=== PATIENT | female | born 1960 | race Caucasian/White ===

== ENCOUNTER 2018-05-22 13:20 | Inpatient (IN) | payer OTHER ==
[2018-05-22] MEDS ORDERED: Sodium Chloride 0.9% 1,000 ML IV SCH (14:00)
[2018-05-22 14:08] LABS: BASO # 0.1 K/uL (0.0-0.2); BASO % 1.2 % (0.0-2.0); EOS # 0.1 K/uL (0.0-0.7); EOS % 1.3 % (0.0-4.0); HEMOGLOBIN 14.3 g/dL (11.0-16.0); LYMPH # 0.7 K/uL (1.0-4.3); LYMPH % 6.6 % (20.0-40.0); MEAN CORPUSCULAR HEMOGLOBIN 26.5 pg (27.0-31.0); MEAN CORPUSCULAR HGB CONC 32.7 g/dL (33.0-37.0); MEAN PLATELET VOLUME 7.7 fL (7.2-11.7); MONO # 0.3 K/uL (0.0-0.8); MONO % 2.8 % (0.0-10.0); NEUT # 9.5 K/uL (1.8-7.0); NEUT % 88.1 % (50.0-75.0); NRBC % 0.1 % (0.0-2.0); PLATELET COUNT 277 K/uL (130-400); RED CELL DISTRIBUTION WIDTH 14.4 % (11.5-14.5); WHITE BLOOD COUNT 10.8 K/uL (4.8-10.8)
[2018-05-22] MEDS ORDERED: Iodixanol 320 MG/ML 100 ML BOTTLE IV ONE (14:10)
[2018-05-22 14:16] LABS: PROTHROMBIN TIME 10.9 SECONDS (9.7-12.2)
[2018-05-22 14:21] LABS: ALB/GLOB RATIO 1.5 (1.0-2.1); ALBUMIN 4.7 g/dL (3.5-5.0); ALT/SGPT 20 U/L (9-52); AST/SGOT 32 U/L (14-36); BLOOD UREA NITROGEN 20 mg/dL (7-17); CALCIUM 9.3 mg/dl (8.6-10.4); GFR NON-AFRICAN AMERICAN > 60; HDL CHOLESTEROL 67 mg/dL (30-70)
--- NOTE | 2018-05-22 14:22 | CT ---
Date of service: 05/22/2018 PROCEDURE: CT HEAD WITHOUT CONTRAST. HISTORY: Code Stroke COMPARISON: None available. TECHNIQUE: Axial computed tomography images were obtained through the head/brain without intravenous contrast. Radiation dose: Total exam DLP = 983.62 mGy-cm. This CT exam was performed using one or more of the following dose reduction techniques: Automated exposure control, adjustment of the mA and/or kV according to patient size, and/or use of iterative reconstruction technique. FINDINGS: HEMORRHAGE: No intracranial hemorrhage. BRAIN: Bilateral caudate head chronic lacune infarcts are reiterated, however, no cortical edema is appreciated there is no mass effect. Ventricular sulcal sternal spaces are unremarkable there is no suspicious extra-axial collection identified. Midline brain anatomy appears unremarkable. VENTRICLES: Unremarkable. No hydrocephalus. CALVARIUM: Unremarkable. PARANASAL SINUSES: Unremarkable as visualized. No significant inflammatory changes. MASTOID AIR CELLS: Unremarkable as visualized. No inflammatory changes. OTHER FINDINGS: None. IMPRESSION: Bilateral caudate head chronic lacune's identified. Examination otherwise unremarkable. Discussed with Dr. Krause with written down and read back verification 05/22/2018 2:10 p.m..
[2018-05-22 14:27] VITALS: BMI 21.4
[2018-05-22 14:32] LABS: LDL CHOLESTEROL 102 mg/dL (0-129)
--- NOTE | 2018-05-22 14:42 | CT ---
Date of service: 05/22/2018 PROCEDURE: CT Angiography of the Brain and Neck. HISTORY: cva COMPARISON: None available. TECHNIQUE: CT angiography of the head and neck was performed following intravenous contrast administration. Coronal and sagittal maximum intensity projection reformatted images were generated. Contrast Dose: Visipaque 320, 100 cc Radiation dose: Total exam DLP = 1014.46 mGy-cm. This CT exam was performed using one or more of the following dose reduction techniques: Automated exposure control, adjustment of the mA and/or kV according to patient size, and/or use of iterative reconstruction technique. FINDINGS: INTERNAL CEREBRAL ARTERIES: Note is made of partially calcified atherosclerosis of the bilateral cavernous internal carotid artery segments without significant stenosis. The skull base, petrous, and supraclinoid segments are bilaterally widely patent. ANTERIOR CEREBRAL ARTERIES: Unremarkable. A1 and A2 segments are widely patent. Smaller distal branches unremarkable, as visualized. MIDDLE CEREBRAL ARTERIES: Unremarkable. M1 and M2 segments are widely patent. Perisylvian branches grossly symmetric. POSTERIOR CIRCULATION: Basilar Artery: Unremarkable. Distal Vertebral Arteries: Right dominant distal vertebral arteries identified. Hypoplastic distal left vertebral artery identified. Posterior Cerebral Arteries: Unremarkable. Posterior Inferior Cerebellar Arteries: Unremarkable. NECK CTA: Common Carotid arteries: There is mild stenosis of the proximal left common carotid artery at its origin with remainder widely patent. There is a high-grade stenosis of the right common carotid artery few cm distal to its origin.. No evidence to suggest common carotid artery dissection. Internal Carotid arteries: No significant stenosis is appreciated throughout the cervical internal carotid artery segments bilaterally and there is no evidence of dissection either. External Carotid arteries: Appear unremarkable bilaterally. Vertebral arteries: The bilateral vertebral arteries appear normal in caliber from their origins to their distal cervical segments. No significant stenosis or definite pattern of dissection. ANEURYSM/ VASCULAR MALFORMATIONS: None. OTHER FINDINGS: Incidental high-grade stenosis origin left subclavian artery. IMPRESSION: No definite large vessel occlusion in the brain. Limited bilateral cavernous ICA atherosclerotic change without significant stenosis. High-grade stenosis proximal right common carotid artery with right CCA otherwise widely patent. Widely patent left CCA throughout. Incidental high-grade stenosis at the origin of the left subclavian artery.
--- NOTE | 2018-05-22 14:43 | RAD ---
Date of service: 05/22/2018 HISTORY: Code Stroke COMPARISON: No prior. FINDINGS: LUNGS: No active pulmonary disease. PLEURA: No significant pleural effusion identified, no pneumothorax apparent. CARDIOVASCULAR: No aortic atherosclerotic calcification present. Cardiomegaly likely. No pulmonary vascular congestion identified. No pulmonary vascular congestion. OSSEOUS STRUCTURES: No significant abnormalities. VISUALIZED UPPER ABDOMEN: Normal. OTHER FINDINGS: None. IMPRESSION: Cardiomegaly. No pulmonary vascular congestion, infiltrate or pleural effusion identified.
[2018-05-22 15:03] LABS: BANDS 2 % (0-2); EOSINOPHIL 2 % (0-4); LYMPHOCYTE 6 % (20-40); MONOCYTE 5 % (0-10); NEUTROPHIL 84 % (50-75); PLATELET ESTIMATE NORMAL (NORMAL); REACTIVE LYMPHOCYTES 1 % (0-0); TOTAL CELLS COUNTED 100
--- NOTE | 2018-05-22 15:05 | C.PDOC ---
History Of Present Illness 57 year old female with a PMHx of hypertension presents to the ED for evaluation of right arm and right leg weakness and numbness that began 1 hour prior to arrival. The patient admits she is not currently on blood thinners. Denies fever, chills, and any other associated symptoms. Time Seen by Provider: 05/22/18 13:55 Chief Complaint (Nursing): Weakness/Neurological Deficit History Per: Patient History/Exam Limitations: no limitations Onset/Duration Of Symptoms: Hrs (1hs prior to arrival.) Current Symptoms Are (Timing): Still Present Past Medical History Reviewed: Historical Data, Nursing Documentation, Vital Signs Vital Signs: Last Vital Signs Temp 98 F 05/22/18 14:57 Pulse 83 05/22/18 14:57 Resp 18 05/22/18 14:57 BP 165/66 H 05/22/18 14:57 Pulse Ox 98 05/22/18 14:57 - Medical History PMH: HTN Family History: States: Unknown Family Hx - Social History Hx Alcohol Use: No Hx Substance Use: No - Immunization History Hx Tetanus Toxoid Vaccination: No Hx Influenza Vaccination: No Hx Pneumococcal Vaccination: No Review Of Systems Except As Marked, All Systems Reviewed And Found Negative. Constitutional: Negative for: Fever, Chills Neurological: Positive for: Weakness ( (+) right arm and right leg weakness and numbness.) Physical Exam - Physical Exam Appears: Non-toxic, No Acute Distress Skin: Warm, Dry Head: Atraumatic, Normacephalic Eye(s): bilateral: Normal Inspection Oral Mucosa: Moist Neck: Normal ROM Chest: Symmetrical Cardiovascular: Rhythm Regular, No Murmur Respiratory: Normal Breath Sounds, No Rales, No Rhonchi, No Wheezing Gastrointestinal/Abdominal: Normal Exam, Soft, No Tenderness Extremity: Bilateral: Atraumatic Neurological/Psych: Oriented x3, Normal Speech, Normal Cognition, Other (right arm and right leg 3/5 weakness. 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 mild sensation deficit.) ED Course And Treatment - Laboratory Results Result Diagrams: 05/23/18 02:38 05/23/18 02:38 Lab Results: PT 10.9 SECONDS (9.7-12.2) 05/22/18 14:03 INR 1.0 05/22/18 14:03 APTT 37 SECONDS (21-34) H 05/22/18 14:03 Troponin I < 0.0120 ng/mL (0.00-0.120) 05/22/18 14:03 Total Bilirubin 0.5 mg/dL (0.2-1.3) 05/22/18 14:03 AST 32 U/L (14-36) 05/22/18 14:03 ALT 20 U/L (9-52) 05/22/18 14:03 Alkaline Phosphatase 101 U/L (38-126) 05/22/18 14:03 Total Protein 7.9 g/dL (6.3-8.3) 05/22/18 14:03 Albumin 4.7 g/dL (3.5-5.0) 05/22/18 14:03 Globulin 3.1 gm/dL (2.2-3.9) 05/22/18 14:03 Albumin/Globulin Ratio 1.5 (1.0-2.1) 05/22/18 14:03 ECG: Interpreted By Me, Viewed By Me ECG Rhythm: Sinus Rhythm Interpretation Of ECG: LVH. Q waves. Rate From EC O2 Sat by Pulse Oximetry: 98 (RA) Pulse Ox Interpretation: Normal - Other Rad CXR X-Ray: Viewed By Me, Read By Radiologist Interpretation: FINDINGS: LUNGS: No active pulmonary disease. PLEURA: No significant pleural effusion identified, no pneumothorax apparent. CARDIOVASCULAR: No aortic atherosclerotic calcification present. Cardiomegaly likely. No pulmonary vascular congestion identified. No pulmonary vascular congestion. OSSEOUS STRUCTURES: No significant abnormalities. VISUALIZED UPPER ABDOMEN: Normal. OTHER FINDINGS: None. IMPRESSION: Cardiomegaly. No pulmonary vascular congestion, infiltrate or pleural effusion identified. - CT Scan/US CT Head Other Rad Studies (CT/US): Read By Radiologist CT/US Interpretation: FINDINGS: HEMORRHAGE: No intracranial hemorrhage. BRAIN: Bilateral caudate head chronic lacune infarcts are reiterated, however, no cortical edema is appreciated there is no mass effect. Ventricular sulcal sternal spaces are unremarkable there is no suspicious extra-axial collection identified. Midline brain anatomy appears unremarkable. VENTRICLES: Unremarkable. No hydrocephalus. CALVARIUM: Unremarkable. PARANASAL SINUSES: Unremarkable as visualized. No significant inflammatory changes. MASTOID AIR CELLS: Unremarkable as visualized. No inflammatory changes. OTHER FINDINGS: None. IMPRESSION: Bilateral caudate head chronic lacune's identified. Examination otherwise unremarkable. Discussed with Dr. Krause with written down and read back verification 05/22/2018 2:10 p.m.. CTA Head/Neck Other Rad Studies (CT/US): Read By Radiologist CT/US Interpretation: FINDINGS: INTERNAL CEREBRAL ARTERIES: Note is made of partially calcified atherosclerosis of the bilateral cavernous internal carotid artery segments without significant stenosis. The skull base, petrous, and supraclinoid segments are bilaterally widely patent. ANTERIOR CEREBRAL ARTERIES: Unremarkable. A1 and A2 segments are widely patent. Smaller distal branches unremarkable, as visualized. MIDDLE CEREBRAL ARTERIES: Unremarkable. M1 and M2 segments are widely patent. Perisylvian branches grossly symmetric. POSTERIOR CIRCULATION: Basilar Artery: Unremarkable. Distal Vertebral Arteries: Right dominant distal vertebral arteries identified. Hypoplastic distal left vertebral artery identified. Posterior Cerebral Arteries: Unremar kable. Posterior Inferior Cerebellar Arteries: Unremarkable. NECK CTA: Common Carotid arteries: There is mild stenosis of the proximal left common carotid artery at its origin with remainder widely patent. There is a high-grade stenosis of the right common carotid artery few cm distal to its origin.. No evidence to suggest common carotid artery dissection. Internal Carotid arteries: No significant stenosis is appreciated throughout the cervical internal carotid artery segments bilaterally and there is no evidence of dissection either. External Carotid arteries: Appear unremarkable bilaterally. Vertebral arteries: The bilateral vertebral arteries appear normal in caliber from their origins to their distal cervical segments. No significant stenosis or definite pattern of dissection. ANEURYSM/ VASCULAR MALFORMATIONS: None. OTHER FINDINGS: Incidental high-grade stenosis origin left subclavian artery. IMPRESSION: No definite large vessel occlusion in the brain. Limited bilateral cavernous ICA atherosclerotic change without significant stenosis. High-grade stenosis proximal right common carotid artery with right CCA otherwise widely patent. Widely patent left CCA throughout. Incidental high-grade stenosis at the origin of the left subclavian artery. Critical Care Time - Critical Care Note Total Time (in mins): 45 Documented critical care: time excludes all time spent performing seperately billable procedures. NIHSS Stroke Scale 2 - Date/Time Evaluation Performed Time Performed: 13:50 When Was NIHSS Performed: Baseline - How Severe is the Stroke Level of Consciousness: 0=Alert LOC to Questions: 0=Both comments correct LOC to commands: 0=Obeys both correctly Best Gaze: 0=Normal Visual: 0=No visual loss Facial: 0=Normal Motor Arm - Left: 0=No drift Motor Arm - Right: 1=Drift noted before 10 sec Motor Leg - Left: 0=No drift Motor Leg - Right: 1=Drift before 5 sec Limb Ataxia: 0=Absent Sensory: 1=Mild to moderate loss Best Language: 0=No aphasia Dysarthia: 0=Normal articulation Extinction & Inattention (Neglect): 0=Normal, no object Score: 3 Medical Decision Making Medical Decision Making: Initial plan: -Blood sent. -EKG -CXR -Activase -CT Head w/o contrast. -CTA Head/Neck. Progress/Update: 2:00 pm : Discussed case with neurologist Dr. Up. Waiting for CT report 2:06 pm: CT report read Spoke with Dr. Up regarding CT, she recommended TPA. Discussed TPA with family and they consented to sign. 2:30 pm : TPA administered Discussed CT of the brain with Dr Up, she was made aware of findings and recommended admission to ICU. She also recommended carotid ultrasound. Discussed with secretarial stenographer, accepted the patient and recommended vascular consult Discussed with hospitalist Dr. Roberto Giang accepted patient for admission who will arrange vascular consult. Disposition - Disposition Disposition: HOSPITALIZED Disposition Time: 15:00 Condition: STABLE - POA Present On Arrival: None - Clinical Impression Clinical Impression: CVA (cerebral vascular accident) - Scribe Statement The provider has reviewed the documentation as recorded by the Scribe (Louise Aguilar) Provider Attestation: All medical record entries made by the Scribe were at my direction and personally dictated by me. I have reviewed the chart and agree that the record accurately reflects my personal performance of the history, physical exam, medical decision making, and the department course for this patient. I have also personally directed, reviewed, and agree with the discharge instructions and disposition.
--- NOTE | 2018-05-22 16:28 | CP.PCM.HP ---
<Daja Espinal - Last Filed: 05/22/18 20:35> History of Present Illness - History of Present Illness History of Present Illness: PGY1 Medicine History and Physical Exam Note for Dr. Mills Patient is a 57-year-old F who is here visiting her family from [place] (arrived 3 months ago) who also has a past medical history of HTN and RA presents to the ED with slurred speech, right upper extremity numbness/weakness and right lower extremity numbness/weakness. Patient's daughter assisted with translation with the permission of the Patient. Patient notes her symptoms began at 12:30PM when her granddaughter could not get her to answer to her questions. Patient noted she began "feeling funny" and described numbness/tingling in her R upper and R lower extremities. While in the ED, Patient received dose of TPA at 14:30. Per Patient, her symptoms improved at 15:30, once re-evaluated. Patient otherwise denies chest pain, palpitations, blurred vision, shortness of breath, abdominal pain, fever, chills, nausea, and/or vomiting, headache, and/or dizziness. PMH: RA, HTN Meds: Clinidipine/Metoprolol (Cilamet XL) 10/50, Prednisolone 5mg, hydroxychloroquine (dose unknown) Surgery: Hysterectomy 2 years ago Social: Denies tobacco use, but Patient states she is exposed to second-hand smoking from Denies ETOH Denies drugs Lives in [place] with and is visiting for the last 3 months PMD: recently has seen her PMD prior to arriving in the [place] and states no new medical problems other than existing HTN Present on Admission - Present on Admission Any Indicators Present on Admission: No History of DVT/PE: No History of Uncontrolled Diabetes: No Urinary Catheter: No Decubitus Ulcer Present: No Review of Systems - Constitutional Constitutional: absent: Chills, Daytime Sleepiness, Frequent Falls, Headache - EENT Eyes: absent: Blind Spots, Blurred Vision, Floaters, Irritation Ears: absent: Decreased Hearing - Cardiovascular Cardiovascular: absent: Chest Pain, Diaphoresis, Dyspnea, Edema, Palpitations - Respiratory Respiratory: absent: Cough, Dyspnea - Gastrointestinal Gastrointestinal: absent: Abdominal Pain, Constipation, Diarrhea - Genitourinary Genitourinary: absent: Hematuria, Urinary Frequency - Musculoskeletal Musculoskeletal: Arthralgias - Integumentary Integumentary: absent: Lesions - Neurological Additional comments: weakness/numbness in right upper and right lower extremities Past Patient History - Past Social History Smoking Status: Never Smoked - CARDIAC Hx Hypertension: Yes - PSYCHIATRIC Hx Substance Use: No - SURGICAL HISTORY Other/Comment: unable to recall Meds Allergies/Adverse Reactions: Allergies Allergy/AdvReac Type Severity Reaction Status Date / Time No Known Allergies Allergy Verified 05/22/18 14:13 Physical Exam - Constitutional Appears: Non-toxic, No Acute Distress - Head Exam Head Exam: ATRAUMATIC, NORMAL INSPECTION, NORMOCEPHALIC - Eye Exam Eye Exam: EOMI, Normal appearance, PERRL Pupil Exam: NORMAL ACCOMODATION Additional comments: cataracts present bilaterally - Neck Exam Neck exam: Positive for: Full Rom, Normal Inspection. Negative for: Lymphadenopathy - Respiratory Exam Respiratory Exam: Clear to Auscultation Bilateral, NORMAL BREATHING PATTERN. absent: Accessory Muscle Use - Cardiovascular Exam Cardiovascular Exam: REGULAR RHYTHM, +S1, +S2. absent: Diastolic murmur, Systolic Murmur - GI/Abdominal Exam GI & Abdominal Exam: Normal Bowel Sounds, Soft. absent: Distended, Guarding, Tenderness - Extremities Exam Extremities exam: Positive for: normal inspection - Back Exam Back exam: NORMAL INSPECTION - Neurological Exam Neurological exam: Alert, CN II-XII Intact, Oriented x3, Reflexes Normal Additional comments: Positive right lower extremity drift Positive right upper extremity drift Muscle strength 3/5 in right upper extremity and right lower extremity gross sensation decreased in right upper extremity otherwise CN II - XII are in tact Results - Vital Signs Recent Vital Signs: Last Vital Signs Temp 97.5 F L 05/22/18 16:00 Pulse 78 05/22/18 16:00 Resp 19 05/22/18 16:00 BP 166/86 H 05/22/18 16:00 Pulse Ox 97 05/22/18 16:00 - Labs Result Diagrams: 05/22/18 14:03 05/22/18 14:03 Labs: Laboratory Results - last 24 hr 05/22/18 05/22/18 05/22/18 14:03 14:03 14:03 WBC 10.8 RBC 5.40 H Hgb 14.3 Hct 43.8 MCV 81.0 MCH 26.5 L MCHC 32.7 L RDW 14.4 Plt Count 277 MPV 7.7 Neut % (Auto) 88.1 H Lymph % (Auto) 6.6 L Kingman % (Auto) 2.8 Eos % (Auto) 1.3 Baso % (Auto) 1.2 Neut # (Auto) 9.5 H Lymph # (Auto) 0.7 L Kingman # (Auto) 0.3 Eos # (Auto) 0.1 Baso # (Auto) 0.1 Neutrophils % (Manual) 84 H Band Neutrophils % 2 Lymphocytes % (Manual) 6 L Reactive Lymphs % 1 H Monocytes % (Manual) 5 Eosinophils % (Manual) 2 Platelet Estimate Normal RBC Morphology Normal PT 10.9 INR 1.0 APTT 37 H Sodium 143 Potassium 4.0 Chloride 102 Carbon Dioxide 32 H Anion Gap 12 BUN 20 H Creatinine 0.8 Est GFR ( Amer) > 60 Est GFR (Non-Af Amer) > 60 Random Glucose 109 H Calcium 9.3 Total Bilirubin 0.5 AST 32 ALT 20 Alkaline Phosphatase 101 Troponin I < 0.0120 Total Protein 7.9 Albumin 4.7 Globulin 3.1 Albumin/Globulin Ratio 1.5 Triglycerides 107 Cholesterol 199 LDL Cholesterol Direct 102 HDL Cholesterol 67 Blood Type Antibody Screen 05/22/18 14:03 WBC RBC Hgb Hct MCV MCH MCHC RDW Plt Count MPV Neut % (Auto) Lymph % (Auto) Kingman % (Auto) Eos % (Auto) Baso % (Auto) Neut # (Auto) Lymph # (Auto) Kingman # (Auto) Eos # (Auto) Baso # (Auto) Neutrophils % (Manual) Band Neutrophils % Lymphocytes % (Manual) Reactive Lymphs % Monocytes % (Manual) Eosinophils % (Manual) Platelet Estimate RBC Morphology PT INR APTT Sodium Potassium Chloride Carbon Dioxide Anion Gap BUN Creatinine Est GFR ( Amer) Est GFR (Non-Af Amer) Random Glucose Calcium Total Bilirubin AST ALT Alkaline Phosphatase Troponin I Total Protein Albumin Globulin Albumin/Globulin Ratio Triglycerides Cholesterol LDL Cholesterol Direct HDL Cholesterol Blood Type O POSITIVE Antibody Screen Negative Assessment & Plan - Assessment and Plan (Free Text) Assessment: PGY1 Medicine History and Physical Exam Note for Dr. Mills Patient is a 57-year-old F who is here visiting her family from [place] (arrived 3 months ago) who also has a past medical history of HTN and RA presents to the ED with slurred speech, right upper extremity numbness/weakness and right lower extremity numbness/weakness. Ischemic Stroke - NIHSS score of 1 (re-evaluation) - CT head: negative for intracranial bleed - CTA: right proximal stenosis of common carotid artery (see official report) - F/U Brain MRI (non-contrast) - F/U carotid doppler study - tPA - F/U ECHO with bubble study - F/U Brain MRI without contrast - F/U Carotid duplex - Lipid panel unremarkable - CRP=12.46 - F/U HgbA1c - F/U: Vitamine B12, T4, Total T3, TSH - HOLD aspirin for 24 hours post TPA administration * should start 05/23/18 at 14:30PM - Permissive HTN systolic > 185 x24 hours from onset of stroke symptoms - Neuro-checks per protocol - Risk factor: HTN - Oxygen 2L NC PRN - PT/OT/ Speech eval and treat Flipped T-Waves Rule-Out ACS - F/U SHAILESH and EKG Q6Hrs x3 (negative x1) - F/U EKG repeat - Cardiology consulted (Dr. Bhandari); rec appreciated - Hold ASA given TPA administration (see above) - F/U ECHO with bubble study - Hold antihypertensive medications to allow for permissive HTN x24 hours Right Proximal Common Carotid Stenosis - Vascular surgery consult (Dr. Regalado); rec appreciated - CTA: shows right proximal carotid stenosis and right subclavian stenosis. symptoms do not correlate with right CCA stenosis - F/U carotid doppler results Rheumatoid Arthritis - F/U ESR, CPP, ALIA with reflex, Anti-CCP - HOLD home meds / NSAIDS PPx: - GI: pepcid - DVT: SCD, VTE contraindicated due to tPA administration - Swallow eval: Patient passed, on Healthy Heart Diet Patient seen and case discussed in detail with Dr. Gene Espinal PGY1 NIHSS Stroke Scale - Date/Time Evaluation Performed Date Performed: 05/22/18 Time Performed: 13:30 When Was NIHSS Performed: Post tPA - How Severe is the Stoke Level of Consciousness: 0=Alert LOC to Questions: 0=Both comments correct LOC to commands: 0=Obeys both correctly Best Gaze: 0=Normal Visual: 0=No visual loss Facial: 0=Normal Motor Arm - Left: 1=Drift noted before 10 sec Motor Arm - Right: 0=No drift Motor Leg - Left: 1=Drift before 5 sec Motor Leg - Right: 0=No drift Limb Ataxia: 0=Absent Sensory: 1=Mild to moderate loss Best Language: 0=No aphasia Dysarthia: 0=Normal articulation Extinction & Inattention (Neglect): 0=Normal, no object Score: 3 <Indira Mills V - Last Filed: 05/23/18 08:16> Results - Vital Signs Recent Vital Signs: Last Vital Signs Temp 97.5 F L 05/22/18 16:00 Pulse 78 05/22/18 16:00 Resp 19 05/22/18 16:00 BP 166/86 H 05/22/18 16:00 Pulse Ox 97 05/22/18 16:00 - Labs Result Diagrams: 05/23/18 02:38 05/23/18 02:38 Labs: Laboratory Results - last 24 hr 05/22/18 05/22/18 05/22/18 14:03 14:03 14:03 WBC 10.8 RBC 5.40 H Hgb 14.3 Hct 43.8 MCV 81.0 MCH 26.5 L MCHC 32.7 L RDW 14.4 Plt Count 277 MPV 7.7 Neut % (Auto) 88.1 H Lymph % (Auto) 6.6 L Kingman % (Auto) 2.8 Eos % (Auto) 1.3 Baso % (Auto) 1.2 Neut # (Auto) 9.5 H Lymph # (Auto) 0.7 L Kingman # (Auto) 0.3 Eos # (Auto) 0.1 Baso # (Auto) 0.1 Neutrophils % (Manual) 84 H Band Neutrophils % 2 Lymphocytes % (Manual) 6 L Reactive Lymphs % 1 H Monocytes % (Manual) 5 Eosinophils % (Manual) 2 Platelet Estimate Normal RBC Morphology Normal PT 10.9 INR 1.0 APTT 37 H Sodium 143 Potassium 4.0 Chloride 102 Carbon Dioxide 32 H Anion Gap 12 BUN 20 H Creatinine 0.8 Est GFR ( Amer) > 60 Est GFR (Non-Af Amer) > 60 POC Glucose (mg/dL) Random Glucose 109 H Calcium 9.3 Total Bilirubin 0.5 AST 32 ALT 20 Alkaline Phosphatase 101 Troponin I < 0.0120 Total Protein 7.9 Albumin 4.7 Globulin 3.1 Albumin/Globulin Ratio 1.5 Triglycerides 107 Cholesterol 199 LDL Cholesterol Direct 102 HDL Cholesterol 67 Blood Type Antibody Screen 05/22/18 05/22/18 14:03 16:35 WBC RBC Hgb Hct MCV MCH MCHC RDW Plt Count MPV Neut % (Auto) Lymph % (Auto) Kingman % (Auto) Eos % (Auto) Baso % (Auto) Neut # (Auto) Lymph # (Auto) Kingman # (Auto) Eos # (Auto) Baso # (Auto) Neutrophils % (Manual) Band Neutrophils % Lymphocytes % (Manual) Reactive Lymphs % Monocytes % (Manual) Eosinophils % (Manual) Platelet Estimate RBC Morphology PT INR APTT Sodium Potassium Chloride Carbon Dioxide Anion Gap BUN Creatinine Est GFR ( Amer) Est GFR (Non-Af Amer) POC Glucose (mg/dL) 119 H Random Glucose Calcium Total Bilirubin AST ALT Alkaline Phosphatase Troponin I Total Protein Albumin Globulin Albumin/Globulin Ratio Triglycerides Cholesterol LDL Cholesterol Direct HDL Cholesterol Blood Type O POSITIVE Antibody Screen Negative Attending/Attestation - Attestation I have personally seen and examined this patient.: Yes I have fully participated in the care of the patient.: Yes I have reviewed all pertinent clinical information: Yes Notes (Text): 57 year-old female past medical history of hypertension, arthritis comes in from home for right-sided hand weakness And overall not feeling well. Patient normally is ambulating individual. Patient noted that while she is back to shower feeling unwell herself to the bed the granddaughter noted that she was not feeling well and brought her daughter over noted hand and weakness of right hand. Last seen normally about 1230. Patient given TPA first dose by 2:30 PM. NIH prior to TPA was 220 discussed with nursing staff. Patient seen post TPA approximately 3:50 PM. Patient right upper extremity is moving very well compared to what was endorsed by nursing staff which is right hand was not moving. Patient denies any headache, denies chest pain denies palpitations denies shortness of breath and per daughter at bedside no change in speech no change in voice tone no slurring no facial droop. Her daughter patient took her medications this morning unclear which ones. Patient is visiting from [place] about 3 months ago. Last saw her PMD [place]15 days prior. Per bedside health is relatively good except for blood pressure. Patient had prior neuro workup for arthritis in the left hand which is resolved while being on the prednisone and hydroxychloroquine. 1 1. Ischemic stroke No informed by ED. Patient received TPA approximately 2:30 PM. Neurochecks per code stroke protocol for TPA protocol. Patient admitted to the intensive care unit Neurology on board. Will need to hold aspirin for at least 24hours since initiation of TPA earliest would be approximately May 3. Will need to follow-up blood pressure guidelines status post TPA Pending A1c Lipid panel completed in the emergency room CT head noted for bilateral quality health had chronic lacunae identified. Examination otherwise unremarkable. CAT scan for performed prior to TPA. CT head/neck neck: No large vessel occlusion in the brain. Limited bilateral cavernous ICA atherosclerotic changes without significant stenosis. High-grade stenosis proximal right common carotid artery with right CC otherwise widely patent. Widely patent left CC throughout. Incidental high-grade stenosis of the origin of the left subclavian artery. 2. History of hypertension Hold patient's blood pressure medications Abide by blood pressure protocol status post TPA for at least 24 hours per neuro 3. Abnormal EKG Patient has flipped T waves on initial EKG ischemia likely secondary to stroke cardiac risk including hypertension. Patient does not report any cardiac pain no shortness of breath no associated palpitations prior to event this morning. We will repeat an EKG today. Check echo. Consult cardio. Please note we cannot give aspirin since been given TPA today and will need to wait at least 24 hours. 4. History of arthritis likely rheumatoid Patient is outpatient takes prednisone and hydroxychloroquine. We will hold. Check ESR CRP ALIA with reflex anti-CCP. Patient no noted visual defects that would be attributed to hydroxychloroquine and no visual defects secondary to stroke. 5. Cartoid Stenosis Noted on CT head and neck Carotid Stenosis Vascular surgery eval Discussed with neurology likely anatomic variant per review 6. Prophylactic measure Pepcid 20 mg IV every 12 for GI prophylaxis TPA per neuro guideline Neurocheck per protocol s/p tpa SCDs PT OT eval Swallow eval
--- NOTE | 2018-05-22 17:27 | CP.PCM.CON ---
History of Present Illness - History of Present Illness History of Present Illness: Neurology Consultation Note: Consult was requested by Dr. Mills Mrs. Celeste is a 57-year-old woman with a past medical history of hypertension, rheumatoid arthritis who was taking a shower and started to have right hand numbness/weakness. She told her daughter and she was brought to the ED, where she also developed right leg numbness/weakness. Her NIHSS was 4. Non-contrast CT scan of the head did not show any acute findings. Her symptoms had started about an hour earlier. She was given IV tPA and shortly after, her symptoms were improving. Review of Systems - Constitutional Constitutional: As Per HPI - EENT Eyes: absent: As Per HPI, Blind Spots, Blurred Vision, Change in Vision, Decreased Night Vision, Diplopia, Discharge, Dry Eye, Exophthalmos, Floaters, Irritation, Itchy Eyes, Loss of Peripheral Vision, Pain, Photophobia, Requires Corrective Lenses, Sees Flashes, Spots in Vision, Tunnel Vision, Other Visual Disturbances, Loss of Vision, Other Ears: absent: As Per HPI, Decreased Hearing, Ear Discharge, Ear Pain, Tinnitus, Abnormal Hearing, Disequilibrium, Dizziness, Other Nose/Mouth/Throat: absent: As Per HPI, Epistaxis, Nasal Congestion, Nasal Discharge, Nasal Obstruction, Nasal Trauma, Nose Pain, Post Nasal Drip, Sinus Pain, Sinus Pressure, Bleeding Gums, Change in Voice, Dental Pain, Dry Mouth, Dysphagia, Halitosis, Hoarsness, Lip Swelling, Mouth Lesions, Mouth Pain, Odynophagia, Sore Throat, Throat Swelling, Tongue Swelling, Facial Pain, Neck Pain, Neck Mass, Other - Breasts Breasts: absent: As Per HPI, Change in Shape, Mass, Pain, Nipple Discharge, Nipple Inversion, Skin Changes, Swelling, Other - Cardiovascular Cardiovascular: absent: As Per HPI, Acrocyanosis, Chest Pain, Chest Pain at Rest, Chest Pain with Activity, Claudication, Diaphoresis, Dyspnea, Dyspnea on Exertion, Edema, Irregular Heart Rhythm, Pain Radiating to Arm/Neck/Jaw, Leg Edema, Leg Ulcers, Lightheadedness, Orthopnea, Palpitations, Paroxysmal Nocturnal Dyspnea, Pedal Edema, Radiating Pain, Rapid Heart Rate, Slow Heart Rate, Syncope, Other - Respiratory Respiratory: absent: As Per HPI, Cough, Dyspnea, Hemoptysis, Dyspnea on Exertion, Wheezing, Snoring, Stridor, Pain on Inspiration, Chest Congestion, Excessive Mucous Production, Change in Mucous Color, Pain with Coughing, Other - Gastrointestinal Gastrointestinal: absent: As Per HPI, Abdominal Pain, Belching, Bloating, Change in Bowel Habits, Change in Stool Character, Coffee Ground Emesis, Constipation, Cramping, Diarrhea, Dyspepsia, Dysphagia, Early Satiety, Excessive Flatus, Fecal Incontinence, Heartburn, Hematemesis, Hematochezia, Loose Stools, Melena, Nausea, Odynophagia, Temesmus, Vomiting, Other - Musculoskeletal Musculoskeletal: absent: As Per HPI, Abnormal Gait, Arthralgias, Atrophy, Back Pain, Deformity, Joint Swelling, Limited Range of Motion, Loss of Height, Muscle Cramps, Muscle Weakness, Myalgias, Neck Pain, Numbness, Radiating Pain into Limb, Stiffness, Tingling, Other - Integumentary Integumentary: absent: As Per HPI, Acne, Alopecia, Bleeding Lesions, Change in Hair, Change in Nails, Change in Pigmentation, Changing Lesions, Dry Skin, Erythema, Furuncle, Hirsutism, Lesions, New Lesions, Non-Healing Lesions, Photosensitivity, Pruritus, Rash, Skin Pain, Skin Ulcer, Sores, Striae, Swelling, Unusual Bruising, Wounds, Jaundice, Other - Neurological Neurological: As Per HPI - Psychiatric Psychiatric: absent: As Per HPI, Abnormal Sleep Pattern, Anhedonia, Anxiety, A uditory Hallucinations, Behavioral Changes, Change in Appetite, Change in Libido, Confusion, Depression, Difficulty Concentrating, Hallucinations, Homicidal Ideation, Hopelessness, Irritability, Memory Loss, Mood Swings, Panic Attacks, Paranoia, Suicidal Ideation, Visual Hallucinations, Tactile Turner ucinations, Other - Endocrine Endocrine: absent: As Per HPI, Change in Body Appearance, Change in Libido, Cold Intolorance, Deepening of Voice, Excessive Sweating, Fatigue, Flushing, Heat Intolorance, Increase in Ring/Shoe/Hat Size, Palpitations, Polydipsia, Po lyphagia, Polyuria, Other - Hematologic/Lymphatic Hematologic: absent: As Per HPI, Easy Bleeding, Easy Bruising, Lymphadenopathy, Other Past Patient History - Past Social History Smoking Status: Never Smoked - CARDIAC Hx Hypertension: Yes - PSYCHIATRIC Hx Substance Use: No - SURGICAL HISTORY Other/Comment: unable to recall Meds Allergies/Adverse Reactions: Allergies Allergy/AdvReac Type Severity Reaction Status Date / Time No Known Allergies Allergy Verified 05/22/18 14:13 - Medications Medications: Current Medications Famotidine (Pepcid) 20 mg IVP Q12 BEATRIZ Sodium Chloride (Sodium Chloride 0.9%) 1,000 mls @ 100 mls/hr IV .Q10H BEATRIZ Last Admin: 05/22/18 14:54 Dose: 100 mls/hr Physical Exam - Constitutional Appears: Well - Head Exam Head Exam: ATRAUMATIC, NORMAL INSPECTION, NORMOCEPHALIC - Eye Exam Eye Exam: EOMI, Normal appearance, PERRL Pupil Exam: NORMAL ACCOMODATION, PERRL - ENT Exam ENT Exam: Mucous Membranes Moist, Normal Exam - Neck Exam Neck exam: Positive for: Normal Inspection - Respiratory Exam Respiratory Exam: Clear to Auscultation Bilateral, NORMAL BREATHING PATTERN - Cardiovascular Exam Cardiovascular Exam: REGULAR RHYTHM, +S1, +S2 - GI/Abdominal Exam GI & Abdominal Exam: Normal Bowel Sounds, Soft. absent: Tenderness - Extremities Exam Extremities exam: Positive for: normal inspection - Back Exam Back exam: NORMAL INSPECTION - Neurological Exam Neurological exam: Alert, CN II-XII Intact, Oriented x3, Reflexes Normal Additional comments: Decreased sensation over left arm with pronator drift and fine motor deficits noted. - Psychiatric Exam Psychiatric exam: Normal Affect, Normal Mood - Skin Skin Exam: Dry, Intact, Normal Color, Warm Results - Vital Signs Recent Vital Signs: Last Vital Signs Temp 97.5 F L 05/22/18 16:00 Pulse 78 05/22/18 16:00 Resp 19 05/22/18 16:00 BP 166/86 H 05/22/18 16:00 Pulse Ox 97 05/22/18 16:00 - Labs Result Diagrams: 05/22/18 14:03 05/22/18 14:03 Labs: Laboratory Results - last 24 hr 05/22/18 05/22/18 05/22/18 14:03 14:03 14:03 WBC 10.8 RBC 5.40 H Hgb 14.3 Hct 43.8 MCV 81.0 MCH 26.5 L MCHC 32.7 L RDW 14.4 Plt Count 277 MPV 7.7 Neut % (Auto) 88.1 H Lymph % (Auto) 6.6 L Steele % (Auto) 2.8 Eos % (Auto) 1.3 Baso % (Auto) 1.2 Neut # (Auto) 9.5 H Lymph # (Auto) 0.7 L Steele # (Auto) 0.3 Eos # (Auto) 0.1 Baso # (Auto) 0.1 Neutrophils % (Manual) 84 H Band Neutrophils % 2 Lymphocytes % (Manual) 6 L Reactive Lymphs % 1 H Monocytes % (Manual) 5 Eosinophils % (Manual) 2 Platelet Estimate Normal RBC Morphology Normal PT 10.9 INR 1.0 APTT 37 H Sodium 143 Potassium 4.0 Chloride 102 Carbon Dioxide 32 H Anion Gap 12 BUN 20 H Creatinine 0.8 Est GFR ( Amer) > 60 Est GFR (Non-Af Amer) > 60 POC Glucose (mg/dL) Random Glucose 109 H Calcium 9.3 Total Bilirubin 0.5 AST 32 ALT 20 Alkaline Phosphatase 101 Troponin I < 0.0120 Total Protein 7.9 Albumin 4.7 Globulin 3.1 Albumin/Globulin Ratio 1.5 Triglycerides 107 Cholesterol 199 LDL Cholesterol Direct 102 HDL Cholesterol 67 Blood Type Antibody Screen 05/22/18 05/22/18 14:03 16:35 WBC RBC Hgb Hct MCV MCH MCHC RDW Plt Count MPV Neut % (Auto) Lymph % (Auto) Steele % (Auto) Eos % (Auto) Baso % (Auto) Neut # (Auto) Lymph # (Auto) Steele # (Auto) Eos # (Auto) Baso # (Auto) Neutrophils % (Manual) Band Neutrophils % Lymphocytes % (Manual) Reactive Lymphs % Monocytes % (Manual) Eosinophils % (Manual) Platelet Estimate RBC Morphology PT INR APTT Sodium Potassium Chloride Carbon Dioxide Anion Gap BUN Creatinine Est GFR ( Amer) Est GFR (Non-Af Amer) POC Glucose (mg/dL) 119 H Random Glucose Calcium Total Bilirubin AST ALT Alkaline Phosphatase Troponin I Total Protein Albumin Globulin Albumin/Globulin Ratio Triglycerides Cholesterol LDL Cholesterol Direct HDL Cholesterol Blood Type O POSITIVE Antibody Screen Negative Assessment & Plan - Assessment and Plan (Free Text) Assessment: Ischemic stroke likely affecting the left subcortical region due to small vessel disease. No evidence of LVO. She has a stenotic right common carotid, but this is not symptomatic and appears to be anatomically kinked. She was given IV tPA and is doing well. I recommend the following: Plan: 1. ICU with cardiac monitoring 2. MRI brain without contrast, MRA head/neck without contrast 3. Carotid Dopplers 4. Echocardiogram with bubble study 5. Check HbA1c, Lipid panel, B12, folate, TSH, homocysteine, ESR, CRP 6. PT/OT eval and treatment 7. Fluids with NS at 100 mL/hr 8. Follow post tPA protocol for BP control and neuro-checks Thank you for this consultation NIHSS Stroke Scale 3 - Date/Time Evaluation Performed Date Performed: 05/22/18 Time Performed: 13:50 When Was NIHSS Performed: Post tPA - How Severe is the Stroke Level of Consciousness: 0=Alert LOC to Questions: 0=Both comments correct LOC to commands: 0=Obeys both correctly Best Gaze: 0=Normal Visual: 0=No visual loss Facial: 0=Normal Motor Arm - Left: 0=No drift Motor Arm - Right: 1=Drift noted before 10 sec Motor Leg - Left: 0=No drift Motor Leg - Right: 0=No drift Limb Ataxia: 0=Absent Sensory: 1=Mild to moderate loss Best Language: 0=No aphasia Dysarthia: 0=Normal articulation Extinction & Inattention (Neglect): 0=Normal, no object Score: 2
--- NOTE | 2018-05-22 17:30 | CP.PCM.CON ---
History of Present Illness - History of Present Illness History of Present Illness: 57yo F. PMHx hypertension, arthritis comes in from home for right-sided hand weakness. Received tpa 1434. CTA negative for intracerebral occlusion, some external carotid stenosis. Past Patient History - Past Social History Smoking Status: Never Smoked - CARDIAC Hx Hypertension: Yes - PSYCHIATRIC Hx Substance Use: No - SURGICAL HISTORY Other/Comment: unable to recall Meds Allergies/Adverse Reactions: Allergies Allergy/AdvReac Type Severity Reaction Status Date / Time No Known Allergies Allergy Verified 05/22/18 14:13 - Medications Medications: Current Medications Famotidine (Pepcid) 20 mg IVP Q12 [facility] Sodium Chloride (Sodium Chloride 0.9%) 1,000 mls @ 100 mls/hr IV .Q10H [facility] Last Admin: 05/22/18 14:54 Dose: 100 mls/hr Physical Exam - Head Exam Head Exam: ATRAUMATIC, NORMAL INSPECTION, NORMOCEPHALIC - Eye Exam Eye Exam: EOMI, Normal appearance, PERRL Pupil Exam: NORMAL ACCOMODATION, PERRL - ENT Exam ENT Exam: Mucous Membranes Moist, Normal Exam - Neck Exam Neck exam: Positive for: Normal Inspection - Respiratory Exam Respiratory Exam: Clear to Auscultation Bilateral, NORMAL BREATHING PATTERN - Cardiovascular Exam Cardiovascular Exam: REGULAR RHYTHM - GI/Abdominal Exam GI & Abdominal Exam: Normal Bowel Sounds, Soft. absent: Tenderness - Extremities Exam Extremities exam: Positive for: normal inspection - Neurological Exam Neurological exam: Alert, CN II-XII Intact, Oriented x3, Reflexes Normal Additional comments: Decreased sensation over left arm with pronator drift and fine motor deficits noted. - Psychiatric Exam Psychiatric exam: Normal Affect, Normal Mood Results - Vital Signs Recent Vital Signs: Last Vital Signs Temp 97.5 F L 05/22/18 16:00 Pulse 78 05/22/18 16:00 Resp 19 05/22/18 16:00 BP 166/86 H 05/22/18 16:00 Pulse Ox 97 05/22/18 16:00 - Labs Result Diagrams: 05/22/18 14:03 05/22/18 14:03 Labs: Laboratory Results - last 24 hr 05/22/18 05/22/18 05/22/18 14:03 14:03 14:03 WBC 10.8 RBC 5.40 H Hgb 14.3 Hct 43.8 MCV 81.0 MCH 26.5 L MCHC 32.7 L RDW 14.4 Plt Count 277 MPV 7.7 Neut % (Auto) 88.1 H Lymph % (Auto) 6.6 L [place] % (Auto) 2.8 Eos % (Auto) 1.3 Baso % (Auto) 1.2 Neut # (Auto) 9.5 H Lymph # (Auto) 0.7 L [place] # (Auto) 0.3 Eos # (Auto) 0.1 Baso # (Auto) 0.1 Neutrophils % (Manual) 84 H Band Neutrophils % 2 Lymphocytes % (Manual) 6 L Reactive Lymphs % 1 H Monocytes % (Manual) 5 Eosinophils % (Manual) 2 Platelet Estimate Normal RBC Morphology Normal PT 10.9 INR 1.0 APTT 37 H Sodium 143 Potassium 4.0 Chloride 102 Carbon Dioxide 32 H Anion Gap 12 BUN 20 H Creatinine 0.8 Est GFR ( Amer) > 60 Est GFR (Non-Af Amer) > 60 POC Glucose (mg/dL) Random Glucose 109 H Calcium 9.3 Total Bilirubin 0.5 AST 32 ALT 20 Alkaline Phosphatase 101 Troponin I < 0.0120 Total Protein 7.9 Albumin 4.7 Globulin 3.1 Albumin/Globulin Ratio 1.5 Triglycerides 107 Cholesterol 199 LDL Cholesterol Direct 102 HDL Cholesterol 67 Blood Type Antibody Screen 05/22/18 05/22/18 14:03 16:35 WBC RBC Hgb Hct MCV MCH MCHC RDW Plt Count MPV Neut % (Auto) Lymph % (Auto) [place] % (Auto) Eos % (Auto) Baso % (Auto) Neut # (Auto) Lymph # (Auto) [place] # (Auto) Eos # (Auto) Baso # (Auto) Neutrophils % (Manual) Band Neutrophils % Lymphocytes % (Manual) Reactive Lymphs % Monocytes % (Manual) Eosinophils % (Manual) Platelet Estimate RBC Morphology PT INR APTT Sodium Potassium Chloride Carbon Dioxide Anion Gap BUN Creatinine Est GFR ( Amer) Est GFR (Non-Af Amer) POC Glucose (mg/dL) 119 H Random Glucose Calcium Total Bilirubin AST ALT Alkaline Phosphatase Troponin I Total Protein Albumin Globulin Albumin/Globulin Ratio Triglycerides Cholesterol LDL Cholesterol Direct HDL Cholesterol Blood Type O POSITIVE Antibody Screen Negative Assessment & Plan (1) CVA (cerebral vascular accident) Assessment and Plan: 57yo F. PMHx hypertension, arthritis comes in from home for right-sided hand weakness. Received tpa 1434. Neuro: neuro checks, patient already showing signs of improvement. repeat head ct in 24h. Pulm: no acute issues, breathing spontaneously on room air CV: hemodynamically stable, maintain SBP<185/105 Hem: monitor for bleeding s/p TPA Renal: no acute issues. NS@75, maintenance volume with recent stroke. Endo: no acute issues GI: regular diet ID: no acute issues DVT proph - tpa GI proph - pepcid Code status - full code Critical Care Time spent 35 minutes Multi-disciplinary rounds were performed with house staff, nursing, speech therapy, respiratory therapy, pharmacy and nutrition with integrated input from the primary team/attending and other consulting services. The documented time is cumulative and includes review of patient data/exams/labs/chart review and examination of the patient on rounds and throughout the day; time is exclusive of any procedures or teaching time. Status: Acute
--- NOTE | 2018-05-22 17:39 | CP.PCM.CON ---
History of Present Illness - History of Present Illness History of Present Illness: Consult note for Dr. Regalado Consulted for right proximal CCA stenosis Patient is a 57 F with PMH HTN and RA who presented today after new onset right sided arm and leg weakness in the shower. She was given tPA in the ER after meeting code stroke criteria and being evaluated by the neurointerventionalist. Upon CTA imaging patient was found to have a stenosis or kinking of the proximal right common carotid artery 2.6 cm from the aortic arch origin. Patient and family state that symptoms have begun to improve with tPA. patient otherwise denies SANDERS, dizziness, LOC, SOB, CP, neck pain, abdominal pain, n/v, f/c, and extremity pain/numbness. PMH: HTN, RA PSH: Home medications: clonidine/metoprolol, prenisone, hydroxychloroquine, rameprozole Allergies: nkda Social: lives in [facility], denies smoking, ETOH and illicit drugs Review of Systems - Review of Systems All systems: reviewed and no additional remarkable complaints except Review of Systems: as per HPI Past Patient History - Past Social History Smoking Status: Never Smoked - CARDIAC Hx Hypertension: Yes - PSYCHIATRIC Hx Substance Use: No - SURGICAL HISTORY Other/Comment: unable to recall Meds Allergies/Adverse Reactions: Allergies Allergy/AdvReac Type Severity Reaction Status Date / Time No Known Allergies Allergy Verified 05/22/18 14:13 - Medications Medications: Current Medications Famotidine (Pepcid) 20 mg IVP Q12 [facility] Sodium Chloride (Sodium Chloride 0.9%) 1,000 mls @ 75 mls/hr IV .[id number] [facility] Physical Exam - Constitutional Appears: Well, Non-toxic, No Acute Distress - Head Exam Head Exam: ATRAUMATIC, NORMOCEPHALIC - Eye Exam Eye Exam: EOMI - ENT Exam ENT Exam: Mucous Membranes Moist - Neck Exam Neck exam: Positive for: Full Rom, Normal Inspection. Negative for: Lymphadenopathy, Tenderness Additional comments: no carotid bruit - Respiratory Exam Respiratory Exam: NORMAL BREATHING PATTERN - Cardiovascular Exam Cardiovascular Exam: REGULAR RHYTHM - GI/Abdominal Exam GI & Abdominal Exam: Soft. absent: Tenderness - Extremities Exam Extremities exam: Positive for: pedal pulses present. Negative for: calf tenderness, pedal edema, tenderness - Neurological Exam Neurological exam: Alert, Oriented x3 Additional comments: weakness in right arm and leg compared to left, slight pronator drift and fine motor deficits in right upper extremity - Psychiatric Exam Psychiatric exam: Normal Affect, Normal Mood - Skin Skin Exam: Dry, Intact, Normal Color, Warm Results - Vital Signs Recent Vital Signs: Last Vital Signs Temp 97.5 F L 05/22/18 16:00 Pulse 78 05/22/18 16:00 Resp 19 05/22/18 16:00 BP 166/86 H 05/22/18 16:00 Pulse Ox 97 05/22/18 16:00 - Labs Result Diagrams: 05/22/18 14:03 05/22/18 14:03 Labs: Laboratory Results - last 24 hr 05/22/18 05/22/18 05/22/18 14:03 14:03 14:03 WBC 10.8 RBC 5.40 H Hgb 14.3 Hct 43.8 MCV 81.0 MCH 26.5 L MCHC 32.7 L RDW 14.4 Plt Count 277 MPV 7.7 Neut % (Auto) 88.1 H Lymph % (Auto) 6.6 L [place] % (Auto) 2.8 Eos % (Auto) 1.3 Baso % (Auto) 1.2 Neut # (Auto) 9.5 H Lymph # (Auto) 0.7 L [place] # (Auto) 0.3 Eos # (Auto) 0.1 Baso # (Auto) 0.1 Neutrophils % (Manual) 84 H Band Neutrophils % 2 Lymphocytes % (Manual) 6 L Reactive Lymphs % 1 H Monocytes % (Manual) 5 Eosinophils % (Manual) 2 Platelet Estimate Normal RBC Morphology Normal PT 10.9 INR 1.0 APTT 37 H Sodium 143 Potassium 4.0 Chloride 102 Carbon Dioxide 32 H Anion Gap 12 BUN 20 H Creatinine 0.8 Est GFR ( Amer) > 60 Est GFR (Non-Af Amer) > 60 POC Glucose (mg/dL) Random Glucose 109 H Calcium 9.3 Total Bilirubin 0.5 AST 32 ALT 20 Alkaline Phosphatase 101 Troponin I < 0.0120 Total Protein 7.9 Albumin 4.7 Globulin 3.1 Albumin/Globulin Ratio 1.5 Triglycerides 107 Cholesterol 199 LDL Cholesterol Direct 102 HDL Cholesterol 67 Blood Type Antibody Screen 05/22/18 05/22/18 14:03 16:35 WBC RBC Hgb Hct MCV MCH MCHC RDW Plt Count MPV Neut % (Auto) Lymph % (Auto) [place] % (Auto) Eos % (Auto) Baso % (Auto) Neut # (Auto) Lymph # (Auto) [place] # (Auto) Eos # (Auto) Baso # (Auto) Neutrophils % (Manual) Band Neutrophils % Lymphocytes % (Manual) Reactive Lymphs % Monocytes % (Manual) Eosinophils % (Manual) Platelet Estimate RBC Morphology PT INR APTT Sodium Potassium Chloride Carbon Dioxide Anion Gap BUN Creatinine Est GFR ( Amer) Est GFR (Non-Af Amer) POC Glucose (mg/dL) 119 H Random Glucose Calcium Total Bilirubin AST ALT Alkaline Phosphatase Troponin I Total Protein Albumin Globulin Albumin/Globulin Ratio Triglycerides Cholesterol LDL Cholesterol Direct HDL Cholesterol Blood Type O POSITIVE Antibody Screen Negative Assessment & Plan - Assessment and Plan (Free Text) Assessment: 57 F with PMH HTN and RA with incidental finding of proximal right common carotid artery stenosis Plan: continue stroke protocol per ICU and neuro-interventionalist recommendations f/u carotid doppler results symptoms do not correlate with right carotid artery origin no acute surgical intervention indicated at this time management of HTN and RA per ICU team d/w Dr. Regalado, all further recs per him Pepper Anthony, PGY 1 - Date & Time Date: 05/22/18 Time: 17:05
[2018-05-22] MEDS: Sodium Chloride 0.9% 1,000 ML IV SCH (18:00)
[2018-05-22] MEDS ORDERED: Labetalol 25mg/5ml Syringe IVP PRN ×2 (20:30→20:32)
[2018-05-22 20:36] LABS: CK-MB 1.01 ng/mL (0.0-3.38)
[2018-05-22 20:40] LABS: CK-MB 0.97 ng/mL (0.0-3.38)
[2018-05-22 20:44] LABS: T4 12.3 ug/dL (5.5-11.0)
[2018-05-22 20:57] LABS: T3 1.78 nmol/L (1.49-2.60)
[2018-05-23 02:43] LABS: BASO # 0.1 K/uL (0.0-0.2); BASO % 1.3 % (0.0-2.0); EOS # 0.2 K/uL (0.0-0.7); EOS % 1.9 % (0.0-4.0); HEMOGLOBIN 12.9 g/dL (11.0-16.0); LYMPH # 2.1 K/uL (1.0-4.3); LYMPH % 23.3 % (20.0-40.0); MEAN CELL VOLUME 79.9 fL (81.0-99.0); MEAN CORPUSCULAR HEMOGLOBIN 25.3 pg (27.0-31.0); MEAN CORPUSCULAR HGB CONC 31.7 g/dL (33.0-37.0); MEAN PLATELET VOLUME 7.6 fL (7.2-11.7); MONO # 0.6 K/uL (0.0-0.8); MONO % 6.5 % (0.0-10.0); RBC 5.1 Mil/uL (3.80-5.20); WHITE BLOOD COUNT 8.9 K/uL (4.8-10.8)
[2018-05-23 02:47] LABS: SQUAMOUS EPITHIAL 4 /hpf (0-5); URINE BILIRUBIN NEGATIVE (NEGATIVE); URINE BLOOD 1+ (NEGATIVE); URINE CLARITY Clear (Clear); URINE COLOR Straw (YELLOW); URINE GLUCOSE (UA) NORMAL (Normal); URINE LEUKOCYTE ESTERASE 1+ Leu/uL (Negative); URINE PROTEIN NEGATIVE (NEGATIVE); URINE UROBILINOGEN NORMAL mg/dL (0.2-1.0)
[2018-05-23 02:54] LABS: ALB/GLOB RATIO 1.5 (1.0-2.1); ALBUMIN 3.9 g/dL (3.5-5.0); ALT/SGPT 21 U/L (9-52); AST/SGOT 24 U/L (14-36); BLOOD UREA NITROGEN 16 mg/dL (7-17); GFR NON-AFRICAN AMERICAN > 60
[2018-05-23 03:04] LABS: CK-MB 0.85 ng/mL (0.0-3.38)
[2018-05-23] MEDS: Sodium Chloride 0.9% 1,000 ML IV SCH ×4 (03:34→19:59)
--- NOTE | 2018-05-23 07:25 | CP.PCM.PN ---
Subjective - Date & Time of Evaluation Date of Evaluation: 05/23/18 Time of Evaluation: 06:55 - Subjective Subjective: Vascular surgery progress note for Dr. Regalado Patient seen and examined this am at bedside. Daughter present at the time of the interview. Patient is awake and alert but indicates that there has been little improvement since yesterday. Patient continues to have right UE weakness and RLE weakness. She otherwise denies SANDERS, SOB, CP, N/V, f/c, abdominal pain, dysuria and stool changes. Objective - Vital Signs/Intake and Output Vital Signs (last 24 hours): Temp Pulse Resp BP Pulse Ox 98 F 105 H 19 156/62 H 96 05/23/18 04:00 05/23/18 06:09 05/23/18 06:09 05/23/18 06:09 05/23/18 06:09 Intake and Output: 05/23/18 05/23/18 06:59 18:59 Intake Total 825 Output Total 650 Balance 175 - Medications Medications: Current Medications Famotidine (Pepcid) 20 mg IVP Q12 [facility] Last Admin: 05/22/18 21:44 Dose: 20 mg Sodium Chloride (Sodium Chloride 0.9%) 1,000 mls @ 75 mls/hr IV .[id number] [facility] Last Admin: 05/23/18 06:17 Dose: Not Given Labetalol HCl (Trandate) 20 mg IVP Q3H PRN PRN Reason: Other Last Admin: 05/22/18 21:06 Dose: 20 mg - Labs Labs: 05/23/18 02:38 05/23/18 02:38 PT 10.9 SECONDS (9.7-12.2) 05/22/18 14:03 INR 1.0 05/22/18 14:03 APTT 37 SECONDS (21-34) H 05/22/18 14:03 - Constitutional Appears: Well, Non-toxic, No Acute Distress - Head Exam Head Exam: ATRAUMATIC, NORMOCEPHALIC - Eye Exam Eye Exam: EOMI - ENT Exam ENT Exam: Mucous Membranes Moist - Respiratory Exam Respiratory Exam: NORMAL BREATHING PATTERN - Extremities Exam Extremities Exam: absent: Calf Tenderness, Pedal Edema - Neurological Exam Neurological Exam: Alert, Awake Neuro motor strength exam: Left Upper Extremity: 5, Right Upper Extremity: 3, Left Lower Extremity: 5, Right Lower Extremity: 4 Additional comments: right sided pronator drift and mild tremor - Psychiatric Exam Psychiatric exam: Normal Affect, Normal Mood - Skin Skin Exam: Dry, Intact, Normal Color, Warm Assessment and Plan - Assessment and Plan (Free Text) Assessment: 57 F s/p CVA/TIA treated with tPA yesterday with right sided proximal Common carotid stenosis Plan: plan: continue stroke protocol per ICU and neuro-interventionalist recommendations f/u carotid doppler results symptoms do not correlate with right carotid artery origin of stroke no acute surgical intervention indicated at this time management of HTN and RA per ICU team will d/w Dr. Regalado, all further recs per him Pepper Anthony, PGY 1
--- NOTE | 2018-05-23 08:18 | CP.PCM.PN ---
Subjective - Date & Time of Evaluation Date of Evaluation: 05/23/18 Time of Evaluation: 08:15 - Subjective Subjective: Medical Attending Note: Patient seen and examined with daughter at bedside. No acute events overnight. Patient denies acute complaints. Patient going for repeat Head CT this morning. Note: patient has toe rings likely need to be clipped or removed prior to brain MRI. Patient received TPA at 2:30PM 05/22/18 for right upper extremity weakness which has improved significantly. Objective - Vital Signs/Intake and Output Vital Signs (last 24 hours): Temp Pulse Resp BP Pulse Ox 98 F 105 H 23 155/64 H 98 05/23/18 04:00 05/23/18 07:09 05/23/18 07:09 05/23/18 07:09 05/23/18 07:48 Intake and Output: 05/23/18 05/23/18 06:59 18:59 Intake Total 825 75 Output Total 650 Balance 175 75 - Medications Medications: Current Medications Famotidine (Pepcid) 20 mg IVP Q12 [facility] Last Admin: 05/22/18 21:44 Dose: 20 mg Sodium Chloride (Sodium Chloride 0.9%) 1,000 mls @ 75 mls/hr IV .[id number] [facility] Last Admin: 05/23/18 06:17 Dose: Not Given Labetalol HCl (Trandate) 20 mg IVP Q3H PRN PRN Reason: Other Last Admin: 05/22/18 21:06 Dose: 20 mg - Labs Labs: 05/23/18 02:38 05/23/18 02:38 PT 10.9 SECONDS (9.7-12.2) 05/22/18 14:03 INR 1.0 05/22/18 14:03 APTT 37 SECONDS (21-34) H 05/22/18 14:03 - Constitutional Appears: Non-toxic, No Acute Distress - Head Exam Head Exam: NORMAL INSPECTION - Eye Exam Eye Exam: EOMI, PERRL. absent: Nystagmus, Scleral icterus Pupil Exam: PERRL. absent: Miosis, Mydriatic - ENT Exam ENT Exam: Mucous Membranes Dry - Respiratory Exam Respiratory Exam: Clear to Ausculation Bilateral, NORMAL BREATHING PATTERN. absent: Rales, Rhonchi, Wheezes - Cardiovascular Exam Cardiovascular Exam: REGULAR RHYTHM, +S1, +S2 - GI/Abdominal Exam GI & Abdominal Exam: Soft, Normal Bowel Sounds. absent: Distended, Firm, Guarding, Rigid, Tenderness, Rebound - Neurological Exam Neurological Exam: Alert, Awake, CN II-XII Intact, Oriented x3, Reflexes Normal Neuro motor strength exam: Left Upper Extremity: 5, Right Upper Extremity: 4, Left Lower Extremity: 5, Right Lower Extremity: 5 - Psychiatric Exam Psychiatric exam: Normal Affect, Normal Mood - Skin Skin Exam: Dry, Intact, Normal Color, Warm Attending/Attestation - Attestation I have personally seen and examined this patient.: Yes I have fully participated in the care of the patient.: Yes I have reviewed all pertinent clinical information, including history, physical exam and plan: Yes Notes (Text): 57 year-old female past medical history of hypertension, arthritis comes in from home for right-sided hand weakness and overall not feeling well. Patient normally is ambulating individual. Patient noted that while she is back to shower feeling unwell herself to the bed the granddaughter noted that she was not feeling well and brought her daughter over noted hand and weakness of right hand. Last seen normally about 1230 on 05/22/18. Patient given TPA first dose by 2:30 PM on 05/22/18. NIH 4 per neurology. Patient is primarily Kyrgyz speaking ( language). She is accompanied by her daughter and at bedside. 1. Ischemic stroke Assessment/Plan * Neurology (Dr. Up) on consult-->help appreciated * Neurology (Not "no") informed by ED. Patient received TPA approximately 2:30 PM on 05/22/18. Neurochecks per code stroke protocol for TPA protocol. * Patient admitted to the intensive care unit * Neurology on board. Will need to hold aspirin for at least 24hours since initiation of TPA earliest would be approximately 230pm on May 23. Will need to follow-up blood pressure guidelines status post TPA * Pending A1c * Lipid panel completed in the emergency room * CT head noted for bilateral quality health had chronic lacunae identified. Examination otherwise unremarkable. CAT scan for performed prior to TPA. * CT head/neck neck: No large vessel occlusion in the brain. Limited bilateral cavernous ICA atherosclerotic changes without significant stenosis. High- grade stenosis proximal right common carotid artery with right CC otherwise widely patent. Widely patent left CC throughout. Incidental high-grade stenosis of the origin of the left subclavian artery. 2. History of hypertension Assessment/Plan * Hold patient's blood pressure medications * Abide by blood pressure protocol status post TPA for at least 24 hours per neuro * F/u neurology when to restart anti-hypertensives after 24 hours of TPA (after 2:30pm 05/23/18) * As outpatient patient takes Metoprolol/Clindapine * Family counselled at bedside to limit 's smoking/limit second hand smoke exposure 3. Abnormal EKG Assessment/Plan * Patient has flipped T waves on initial EKG ischemia likely secondary to stroke cardiac risk including hypertension. Patient does not report any cardiac pain no shortness of breath no associated palpitations prior to event this morning. * Check echo. Consult cardio. Please note we cannot give aspirin since been given TPA today and will need to wait at least 24 hours (05/23/18) 4. History of arthritis likely rheumatoid Assessment/Plan * Patient is outpatient takes prednisone and hydroxychloroquine. We will hold. Check ESR CRP ALIA with reflex anti-CCP. Patient no noted visual defects that would be attributed to hydroxychloroquine and no visual defects secondary to stroke. 5. Cartoid Stenosis Assessment/Plan * Noted on CT head and neck * Carotid Duplex * Appreciated recommendation by vascular surgery eval * Discussed with neurology likely anatomic variant per review; patient's symptoms likely not attributed to it 6. Second Hand Smoke Exposure Assessment/Plan * Patient's is a smoker; counselled to stop smoking to limit second hand smoke to other family members 6. Prophylactic measure Assessment/Plan * Pepcid 20 mg IV every 12 for GI prophylaxis * TPA per neuro guideline * Neurocheck per protocol s/p tpa * SCDs * PT OT eval * Swallow eval Disposition: patient was originally scheduled to fly back to [facility] on 05/26/18 she is here visiting for 3 month visit. Please follow-up with social work to provide letter to airline for potential refund of ticket. patient is going for repeat head CT today. pending echo/cartoid duplex. Followup with neurology post TPA (day 1; will be 24 hours approximately 230Pm 05/23/18) when to restart anti- hypertensive/start aspirin and plavix NIHSS Stroke Scale - Date/Time Evaluation Performed Date Performed: 05/23/18 Time Performed: 08:15 When Was NIHSS Performed: Post tPA - How Severe is the Stoke Level of Consciousness: 0=Alert LOC to Questions: 0=Both comments correct LOC to commands: 0=Obeys both correctly Best Gaze: 0=Normal Visual: 0=No visual loss Facial: 0=Normal Motor Arm - Left: 0=No drift Motor Arm - Right: 0=No drift Motor Leg - Left: 0=No drift Motor Leg - Right: 1=Drift before 5 sec Limb Ataxia: 0=Absent Sensory: 0=Normal Best Language: 0=No aphasia Dysarthia: 0=Normal articulation Extinction & Inattention (Neglect): 0=Normal, no object Score: 1
--- NOTE | 2018-05-23 10:37 | CT ---
Date of service: 05/23/2018 PROCEDURE: CT HEAD WITHOUT CONTRAST. HISTORY: headaches post TPA COMPARISON: Unenhanced head CT 05/22/2018. TECHNIQUE: Axial computed tomography images were obtained through the head/brain without intravenous contrast. Radiation dose: Total exam DLP = 967.87 mGy-cm. This CT exam was performed using one or more of the following dose reduction techniques: Automated exposure control, adjustment of the mA and/or kV according to patient size, and/or use of iterative reconstruction technique. FINDINGS: HEMORRHAGE: No intracranial hemorrhage. BRAIN: Interval edema appears cytotoxic in the left frontal and parietal lobes compatible with likely embolic pattern of brain infarction. Luxury perfusion is seen in the central portion of left frontal infarction in evolution with trace/petechial hemorrhage not completely excluded. The remaining brain parenchyma appears unremarkable. Diminishing sulcation is seen at the infarction sites but with no midline shift at this time. Brainstem and posterior fossa appear unremarkable. A chronic lacune is again seen at the bilateral caudate heads. VENTRICLES: Unremarkable. No hydrocephalus. CALVARIUM: Unremarkable. PARANASAL SINUSES: Unremarkable as visualized. No significant inflammatory changes. MASTOID AIR CELLS: Unremarkable as visualized. No inflammatory changes. OTHER FINDINGS: None. IMPRESSION: Cytotoxic edema is now identified in small sub segments of the left frontal and parietal lobes by normal appearing parenchyma and therefore suggesting embolic type ischemic infarcts. Trace petechial hemorrhage is difficult to exclude from normal density parenchyma in the center of the left frontal infarct. No gross intracranial hemorrhage appreciable.
--- NOTE | 2018-05-23 12:54 | CP.PCM.PN ---
Subjective - Date & Time of Evaluation Date of Evaluation: 05/23/18 Time of Evaluation: 12:45 - Subjective Subjective: No events, weakness in the right leg has improved since presentation, c/o headache this morning, CT head done now shows stroked area in the left frontal cortex with ? hemorrhagic conversion vs changes post stroke in the pagan area, headache has improved since morning. Objective - Vital Signs/Intake and Output Vital Signs (last 24 hours): Temp Pulse Resp BP Pulse Ox 98 F 105 H 29 H 159/70 H 97 05/23/18 04:00 05/23/18 12:18 05/23/18 12:18 05/23/18 12:18 05/23/18 12:18 Intake and Output: 05/23/18 05/23/18 06:59 18:59 Intake Total 825 725 Output Total 650 400 Balance 175 325 - Medications Medications: Current Medications Famotidine (Pepcid) 20 mg IVP Q12 [facility] Last Admin: 05/23/18 09:25 Dose: 20 mg Sodium Chloride (Sodium Chloride 0.9%) 1,000 mls @ 75 mls/hr IV .[id number] [facility] Last Admin: 05/23/18 06:17 Dose: Not Given - Labs Labs: 05/23/18 02:38 05/23/18 02:38 PT 10.9 SECONDS (9.7-12.2) 05/22/18 14:03 INR 1.0 05/22/18 14:03 APTT 37 SECONDS (21-34) H 05/22/18 14:03 - Additional Findings Additional findings: * HEENT JUANA * Neck Supple * Chest Clear * CVS regular * PA soft, nt bs present * Ext no edema * [employer]ING EX[employer] mild tremors when using right arm and right leg, 4+, rest of the exam wnl * Skin normal turgor. Assessment and Plan - Assessment and Plan (Free Text) Assessment: * CVA left frontal with mild weakness in right arm/leg, s/p tpa * H/o rheumatoid may restart home meds * Plan: * Antilipid to start * ASA, dvt prophylaxis after confirming no hemorrhagic conversion * May start her hydroxychloroquine * SCDs * See orders for detail
[2018-05-24] MEDS: Labetalol 25mg/5ml Syringe IVP STA ×2 (04:00→04:04)
[2018-05-24] MEDS ORDERED: Labetalol 5mg/ml (4ml) IVP ONE (04:31)
[2018-05-24] MEDS: Sodium Chloride 0.9% 1,000 ML IV SCH ×2 (05:26→09:30)
[2018-05-24 06:02] LABS: BASO % 0.5 % (0.0-2.0); EOS # 0.2 K/uL (0.0-0.7); EOS % 2.6 % (0.0-4.0); HEMOGLOBIN 12.6 g/dL (11.0-16.0); LYMPH # 1.6 K/uL (1.0-4.3); LYMPH % 21.8 % (20.0-40.0); MEAN CELL VOLUME 80.8 fL (81.0-99.0); MEAN CORPUSCULAR HEMOGLOBIN 26.2 pg (27.0-31.0); MEAN CORPUSCULAR HGB CONC 32.4 g/dL (33.0-37.0); MEAN PLATELET VOLUME 7.9 fL (7.2-11.7); MONO # 0.5 K/uL (0.0-0.8); MONO % 6.5 % (0.0-10.0); NEUT # 5.2 K/uL (1.8-7.0); NEUT % 68.6 % (50.0-75.0); NRBC % 0.1 % (0.0-2.0); RBC 4.82 Mil/uL (3.80-5.20); RED CELL DISTRIBUTION WIDTH 14.2 % (11.5-14.5); WHITE BLOOD COUNT 7.6 K/uL (4.8-10.8)
[2018-05-24 06:36] LABS: ALB/GLOB RATIO 1.4 (1.0-2.1); ALBUMIN 3.6 g/dL (3.5-5.0); ALT/SGPT 20 U/L (9-52); AST/SGOT 27 U/L (14-36); BLOOD UREA NITROGEN 11 mg/dL (7-17); CALCIUM 8.7 mg/dl (8.6-10.4); GFR NON-AFRICAN AMERICAN > 60
--- NOTE | 2018-05-24 07:30 | CP.PCM.PN ---
Subjective - Date & Time of Evaluation Date of Evaluation: 05/24/18 Time of Evaluation: 07:20 - Subjective Subjective: Hospitalist Progress Note Patient was seen and examined at 7:20 AM ICU Bed 5 05/24/18 with at bedside 57 year old female (PMHx HTN, RA) who presented to [facility] (Former[facility] ER on 05/22/18 with complaints of Right Upper Extremity and Right Lower Extremity numbness/weakness that began at 12: 30 PM on 05/22/18. Code Stroke was called and she was given TPA at 2:30 PM 05/22/18 with improvement in symptoms by 3:30 PM. She was admitted to the ICU for further treatment and evaluation. Please see Assessment and Plans below for further details. Upon FULL ROS in [place]: NO chest pain NO SOB Dry cough NO abdominal pain NO n/v/d: last bowel movement on Thursday05/22/18 Numbness/tingling in the Right UE and Right LE has resolved NO burning and pain with urination NO other complaints General: AAOx3, NAD HEENT: NCA, EOMI, PERRLA, NO pharyngeal erythema/exudate, NO thyromegaly, Nasal Turbinates are nonerythematous/nonedematous, NO lymphadenopathy Cardio: NS1 and NS2, NO M/R/G Resp: CTA B/L, NO M/R/G GI: BSx4, Soft, NT, ND, NO HSM, NO guarding/rebound tenderness Ext: NO edema, Pulses are strong and equal, Capillary Refill is 2 seconds, N ormal color and temperature Neuro: CN II through XII are grossly intact, Babinski is normal, Rhomberg is normal, 5/5 strength with flexion and extension bilateral UE and LE against resistance, NO loss of sensation Repeat CT Head 05/23/18: cytotoxic edema is now identified in small sub segments of the left frontal and parietal lobes by normal appearing parenchyma and therefore suggesting embolic type ischemia infarcts, trace petechial hemorrhage is difficult to exclude from normal density parenchyma in the center of the left frontal infarct, no gross intracranial hemorrhage appreciable. F/U MRI Brain w/o contrast: spoke with Anastasia Davis and she has ordered ring cutters from the ER for the toe rings that will need to be removed before the MRI F/U Echo Bubble Study: ordered by Cardiology considering the possibility of embolism to the brain as per repeat CT Head 05/23/18 F/U Carotid U/S HOLDING anticoagulation (ASA and Plavix) until cleared to start by Neurology See Assessment and Plans below for summary of care 1. Ischemic stroke Assessment/Plan * Neurology (Dr. Up) on consult-->help appreciated * Neurology (Not "no") informed by ED. Patient received TPA approximately 2:30 PM on 05/22/18. Neurochecks per code stroke protocol for TPA protocol. * Patient admitted to the intensive care unit * Neurology on board. Will need to hold aspirin for at least 24hours since initiation of TPA earliest would be approximately 230pm on May 23. Will need to follow-up blood pressure guidelines status post TPA * Pending A1c * Lipid panel completed in the emergency room * CT Head 05/22/18 noted for bilateral caudate head chronic launar infarcts. Examination otherwise unremarkable. * CT head/neck neck 05/22/18: No large vessel occlusion in the brain. Limited bilateral cavernous ICA atherosclerotic changes without significant stenosis. High-grade stenosis proximal right common carotid artery with right CC otherwise widely patent. Widely patent left CC throughout. Incidental high- grade stenosis of the origin of the left subclavian artery. 2. History of hypertension Assessment/Plan * Hold patient's blood pressure medications * Abide by blood pressure protocol status post TPA for at least 24 hours per neuro * F/u neurology when to restart anti-hypertensives after 24 hours of TPA (after 2:30pm 05/23/18) * As outpatient patient takes Metoprolol/Clindapine * Family counselled at bedside to limit 's smoking/limit second hand smoke exposure 3. Abnormal EKG Assessment/Plan * Patient has flipped T waves on initial EKG ischemia likely secondary to stroke cardiac risk including hypertension. Patient does not report any cardiac pain no shortness of breath no associated palpitations prior to event this morning. * Check echo. Consult cardio. Please note we cannot give aspirin since been given TPA today and will need to wait at least 24 hours (05/23/18) 4. History of arthritis likely rheumatoid Assessment/Plan * Patient is outpatient takes prednisone and hydroxychloroquine. We will hold. Check ESR CRP ALIA with reflex anti-CCP. Patient no noted visual defects that would be attributed to hydroxychloroquine and no visual defects secondary to stroke. 5. Cartoid Stenosis Assessment/Plan * Noted on CT head and neck * F/U Carotid Duplex * Appreciated recommendation by vascular surgery eval * Discussed with neurology likely anatomic variant per review; patient's symptoms likely not attributed to it 6. Second Hand Smoke Exposure Assessment/Plan * Patient's is a smoker; counselled to stop smoking to limit second hand smoke to other family members 6. Prophylactic measure Assessment/Plan * Pepcid 20 mg IV every 12 for GI prophylaxis * TPA per neuro guideline * Neurocheck per protocol s/p tpa * SCDs * PT OT eval * Swallow eval Chnio Abraham D.O. Objective - Vital Signs/Intake and Output Vital Signs (last 24 hours): Temp Pulse Resp BP Pulse Ox 98 F 83 22 163/58 H 95 05/24/18 04:00 05/24/18 07:00 05/24/18 07:00 05/24/18 06:19 05/24/18 07:00 Intake and Output: 05/24/18 05/24/18 06:59 18:59 Intake Total 1150 75 Output Total 800 Balance 350 75 - Medications Medications: Current Medications Famotidine (Pepcid) 20 mg IVP Q12 [facility] Last Admin: 05/23/18 21:21 Dose: 20 mg Sodium Chloride (Sodium Chloride 0.9%) 1,000 mls @ 75 mls/hr IV .[id number] [facility] Last Admin: 05/24/18 05:26 Dose: 75 mls/hr Rosuvastatin Calcium (Crestor) 5 mg PO HS [facility] Last Admin: 05/23/18 21:21 Dose: 5 mg - Labs Labs: 05/24/18 05:52 05/24/18 05:52 PT 10.9 SECONDS (9.7-12.2) 05/22/18 14:03 INR 1.0 05/22/18 14:03 APTT 37 SECONDS (21-34) H 05/22/18 14:03
[2018-05-24] MEDS ORDERED: Potassium Chloride 20 mEq ER Tab PO ONE (08:45)
--- NOTE | 2018-05-24 09:16 | CARD ---
APPROVED REPORT Date of service: 05/22/2018 EKG Measurement Heart [id number] <Conclusion> Normal sinus rhythm Left ventricular hypertrophy with repolarization abnormality Abnormal ECG
--- NOTE | 2018-05-24 09:20 | CARD ---
APPROVED REPORT Date of service: 05/22/2018 EKG Measurement Heart [id number] <Conclusion> Normal sinus rhythm Possible Left atrial enlargement Left ventricular hypertrophy with repolarization abnormality Cannot rule out Septal infarct, age undetermined Abnormal ECG
--- NOTE | 2018-05-24 09:46 | CP.PCM.CON ---
<TamikaShivn - Last Filed: 05/24/18 18:00> History of Present Illness - History of Present Illness History of Present Illness: 57 year old female with a past medical history of rheumatoid arthritis and hypertension presents to the hospital after reporting not feeling well while at home. History was provided by daughter who was able to translate. Patient reportedly, felt sick while at home and went to rest. Patient's grandchild went to wake up her and she reported being unable to move her right arm. Patient was then brought in by the daughter to the emergency room. Patient was given tPa and symptoms began to resolve upon arrival to the hospital . Patient denies any chest pain, fevers, chills, nausea, vomiting, headaches, dizziness, syncopal episodes, or any other complaints. PMH: RA, HTN Meds: Clinidipine/Metoprolol (Cilamet XL) 10/50, Prednisolone 5mg, hydroxychloroquine (dose unknown) Surgery: Hysterectomy 2 years ago Social: Denies alcohol, tobacco and drug use. Lives in [place] with and is visiting for the last 3 months . PMD: recently has seen her PMD prior to arriving in the [place] and states no new medical problems other than existing HTN Review of Systems - Constitutional Constitutional: absent: Chills, Daytime Sleepiness, Frequent Falls, Headache, Night Sweats, Weakness - EENT Eyes: absent: Blurred Vision, Discharge, Loss of Peripheral Vision Ears: absent: Ear Discharge, Dizziness Nose/Mouth/Throat: absent: Nasal Congestion, Nose Pain, Bleeding Gums, Halitosis, Odynophagia, Facial Pain, Neck Pain - Breasts Breasts: absent: Mass, Swelling - Cardiovascular Cardiovascular: absent: Chest Pain, Irregular Heart Rhythm, Leg Edema, Palpitations, Pedal Edema, Syncope - Respiratory Respiratory: absent: Hemoptysis - Genitourinary Genitourinary: absent: Change in Urinary Stream, Nocturia, Urinary Urgency, Hx Renal/Bladder Calculi, Bladder Distension - Musculoskeletal Musculoskeletal: absent: Arthralgias, Muscle Weakness, Myalgias, Stiffness, Tingling - Integumentary Integumentary: absent: Bleeding Lesions, Changing Lesions, New Lesions, Pruritus, Rash - Neurological Neurological: absent: Abnormal Hearing, Burning Sensations, Numbness, Lack of Coordination, Restless Legs, Tremor, Vertigo - Psychiatric Psychiatric: absent: Anhedonia, Depression, Hopelessness, Panic Attacks, P aranoia - Endocrine Endocrine: absent: Polydipsia, Polyphagia, Polyuria - Hematologic/Lymphatic Hematologic: absent: Easy Bleeding, Easy Bruising Past Patient History - Past Medical History & Family History Past Medical History?: Yes - Past Social History Smoking Status: Never Smoked - CARDIAC Hx Hypertension: Yes - PULMONARY Hx Respiratory Disorders: No - NEUROLOGICAL Hx Dizziness: Yes - HEENT Other/Comment: reading glasses - RENAL Hx Chronic Kidney Disease: No - MUSCULOSKELETAL/RHEUMATOLOGICAL Hx Arthritis: Yes - PSYCHIATRIC Hx Substance Use: No - SURGICAL HISTORY Other/Comment: unable to recall - ANESTHESIA Hx Anesthesia: Yes (hx hysterectomy) Meds Allergies/Adverse Reactions: Allergies Allergy/AdvReac Type Severity Reaction Status Date / Time No Known Allergies Allergy Verified 05/22/18 14:13 - Medications Medications: Current Medications Famotidine (Pepcid) 20 mg IVP Q12 [facility] Last Admin: 05/23/18 21:21 Dose: 20 mg Rosuvastatin Calcium (Crestor) 5 mg PO HS [facility] Last Admin: 05/23/18 21:21 Dose: 5 mg Physical Exam - Head Exam Head Exam: ATRAUMATIC, NORMAL INSPECTION - Eye Exam Eye Exam: EOMI, Normal appearance, PERRL Pupil Exam: NORMAL ACCOMODATION, PERRL. absent: Irregular, Unequal - ENT Exam ENT Exam: Mucous Membranes Moist, Normal Oropharynx - Respiratory Exam Respiratory Exam: Clear to Auscultation Bilateral, NORMAL BREATHING PATTERN. absent: Prolonged Expiratory Phase, Respiratory Distress - Cardiovascular Exam Cardiovascular Exam: REGULAR RHYTHM, +S1, +S2 - Neurological Exam Neurological exam: Alert, CN II-XII Intact, Oriented x3 - Psychiatric Exam Psychiatric exam: Normal Affect, Normal Mood - Skin Skin Exam: Dry, Intact, Normal Color Results - Vital Signs Recent Vital Signs: Last Vital Signs Temp 98 F 05/24/18 08:00 Pulse 115 H 05/24/18 09:00 Resp 18 05/24/18 09:00 BP 173/72 H 05/24/18 08:18 Pulse Ox 97 05/24/18 09:00 - Labs Result Diagrams: 05/24/18 05:52 05/24/18 05:52 Labs: Laboratory Results - last 24 hr 05/22/18 05/23/18 05/23/18 14:03 02:38 07:26 WBC RBC Hgb Hct MCV MCH MCHC RDW Plt Count MPV Neut % (Auto) Lymph % (Auto) [place] % (Auto) Eos % (Auto) Baso % (Auto) Neut # (Auto) Lymph # (Auto) [place] # (Auto) Eos # (Auto) Baso # (Auto) Sodium Potassium Chloride Carbon Dioxide Anion Gap BUN Creatinine Est GFR ( Amer) Est GFR (Non-Af Amer) POC Glucose (mg/dL) 83 Random Glucose Hemoglobin A1c 6.0 Calcium Phosphorus Magnesium Total Bilirubin AST ALT Alkaline Phosphatase Total Protein Albumin Globulin Albumin/Globulin Ratio [facility] 6.8 05/23/18 05/23/18 05/23/18 11:37 16:01 21:48 WBC RBC Hgb Hct MCV MCH MCHC RDW Plt Count MPV Neut % (Auto) Lymph % (Auto) [place] % (Auto) Eos % (Auto) Baso % (Auto) Neut # (Auto) Lymph # (Auto) [place] # (Auto) Eos # (Auto) Baso # (Auto) Sodium Potassium Chloride Carbon Dioxide Anion Gap BUN Creatinine Est GFR ( Amer) Est GFR (Non-Af Amer) POC Glucose (mg/dL) 84 74 105 Random Glucose Hemoglobin A1c Calcium Phosphorus Magnesium Total Bilirubin AST ALT Alkaline Phosphatase Total Protein Albumin Globulin Albumin/Globulin Ratio Homocysteine 05/24/18 05/24/18 05:52 05:52 WBC 7.6 RBC 4.82 Hgb 12.6 Hct 38.9 MCV 80.8 L MCH 26.2 L MCHC 32.4 L RDW 14.2 Plt Count 217 MPV 7.9 Neut % (Auto) 68.6 Lymph % (Auto) 21.8 [place] % (Auto) 6.5 Eos % (Auto) 2.6 Baso % (Auto) 0.5 Neut # (Auto) 5.2 Lymph # (Auto) 1.6 [place] # (Auto) 0.5 Eos # (Auto) 0.2 Baso # (Auto) 0.0 Sodium 139 Potassium 3.3 L Chloride 103 Carbon Dioxide 29 Anion Gap 10 BUN 11 Creatinine 0.7 Est GFR ( Amer) > 60 Est GFR (Non-Af Amer) > 60 POC Glucose (mg/dL) Random Glucose 92 Hemoglobin A1c Calcium 8.7 Phosphorus 4.0 Magnesium 1.9 Total Bilirubin 0.5 AST 27 ALT 20 Alkaline Phosphatase 83 Total Protein 6.3 Albumin 3.6 Globulin 2.6 Albumin/Globulin Ratio 1.4 Homocysteine Assessment & Plan - Assessment and Plan (Free Text) Assessment: 57 year old female with a past medical history of hypertension and rheumatoid arthritis admitted for cva. Plan: 1.CVA CT head: -noted for bilateral quality health had chronic lacunae identified. Examination otherwise unremarkable. CT head/neck neck: -No large vessel occlusion in the brain. Limited bilateral cavernous ICA atherosclerotic changes without significant stenosis. High-grade stenosis proximal right common carotid artery with right CC otherwise widely patent. Widely patent left CC throughout. Incidental high-grade stenosis of the origin of the left subclavian artery. Echo:(Preliminary Read) -LVH, no masses appreciated -small pericardial effusion, mild to moderate aortic insufficiency, negative for shunts BNP: 408 Troponin (-)x4 Neurology consulted. help appreciated. Awaiting hypercoagulable workup and Brain MRI results. Will continue to follow. Medications: tPA given in the Emergency Room Crestor 5mg PO HS [facility] ASA 81mg PO Daily ppx -Pepcid 20mg IVP Q12 [facility] Plan discussed with Dr. Bhandari. Mckay Lundberg, PGY-2 <Eduardo Bhandari - Last Filed: 05/24/18 23:12> Meds - Medications Medications: Current Medications Aspirin (Aspirin Chewable) 81 mg PO DAILY [facility] Last Admin: 05/24/18 12:50 Dose: 81 mg Famotidine (Pepcid) 20 mg PO BID [facility] Last Admin: 05/24/18 20:39 Dose: 20 mg Rosuvastatin Calcium (Crestor) 5 mg PO HS [facility] Last Admin: 05/24/18 21:17 Dose: 5 mg Results - Vital Signs Recent Vital Signs: Last Vital Signs Temp 98.7 F 05/24/18 20:00 Pulse 89 05/24/18 22:00 Resp 21 05/24/18 22:00 BP 177/89 H 05/24/18 21:19 Pulse Ox 96 05/24/18 22:00 - Labs Result Diagrams: 05/24/18 05:52 05/24/18 05:52 Labs: Laboratory Results - last 24 hr 05/24/18 05/24/18 05/24/18 05:52 05:52 07:15 WBC 7.6 RBC 4.82 Hgb 12.6 Hct 38.9 MCV 80.8 L MCH 26.2 L MCHC 32.4 L RDW 14.2 Plt Count 217 MPV 7.9 Neut % (Auto) 68.6 Lymph % (Auto) 21.8 [place] % (Auto) 6.5 Eos % (Auto) 2.6 Baso % (Auto) 0.5 Neut # (Auto) 5.2 Lymph # (Auto) 1.6 [place] # (Auto) 0.5 Eos # (Auto) 0.2 Baso # (Auto) 0.0 Sodium 139 Potassium 3.3 L Chloride 103 Carbon Dioxide 29 Anion Gap 10 BUN 11 Creatinine 0.7 Est GFR ( Amer) > 60 Est GFR (Non-Af Amer) > 60 POC Glucose (mg/dL) 100 Random Glucose 92 Calcium 8.7 Phosphorus 4.0 Magnesium 1.9 Total Bilirubin 0.5 AST 27 ALT 20 Alkaline Phosphatase 83 Total Creatine Kinase 30 CK-MB (Mass) 0.55 Troponin I 0.0240 Total Protein 6.3 Albumin 3.6 Globulin 2.6 Albumin/Globulin Ratio 1.4 Homocysteine 05/24/18 05/24/18 05/24/18 12:40 13:36 16:27 WBC RBC Hgb Hct MCV MCH MCHC RDW Plt Count MPV Neut % (Auto) Lymph % (Auto) [place] % (Auto) Eos % (Auto) Baso % (Auto) Neut # (Auto) Lymph # (Auto) [place] # (Auto) Eos # (Auto) Baso # (Auto) Sodium Potassium Chloride Carbon Dioxide Anion Gap BUN Creatinine Est GFR ( Amer) Est GFR (Non-Af Amer) POC Glucose (mg/dL) 111 H 109 Random Glucose Calcium Phosphorus Magnesium Total Bilirubin AST ALT Alkaline Phosphatase Total Creatine Kinase CK-MB (Mass) Troponin I Total Protein Albumin Globulin Albumin/Globulin Ratio Homocysteine 7.3 05/24/18 21:22 WBC RBC Hgb Hct MCV MCH MCHC RDW Plt Count MPV Neut % (Auto) Lymph % (Auto) [place] % (Auto) Eos % (Auto) Baso % (Auto) Neut # (Auto) Lymph # (Auto) [place] # (Auto) Eos # (Auto) Baso # (Auto) Sodium Potassium Chloride Carbon Dioxide Anion Gap BUN Creatinine Est GFR ( Amer) Est GFR (Non-Af Amer) POC Glucose (mg/dL) 160 H Random Glucose Calcium Phosphorus Magnesium Total Bilirubin AST ALT Alkaline Phosphatase Total Creatine Kinase CK-MB (Mass) Troponin I Total Protein Albumin Globulin Albumin/Globulin Ratio Homocysteine Assessment & Plan - Assessment and Plan (Free Text) Plan: Patient seen and evaluated personally by me. Plan of care d/w the medical data entry clerk and as documented
--- NOTE | 2018-05-24 10:06 | CP.PCM.PN ---
Subjective - Date & Time of Evaluation Date of Evaluation: 05/24/18 Time of Evaluation: 10:06 - Subjective Subjective: Neurology Progress note Patient seen and examined at bedside. Family present who states that patient is much improved from before when she had right hand numbness/weakness which progressed to right leg numbness and weakness. Patient received TPA at that time. She currently states she is no longer experienced numbness or weakness of her right side including her arms and leg. She denies any blurry vision, changes in hearing, dizziness, nausea, vomiting. She states she has had a mild headache all over her head since yesterday. Objective - Vital Signs/Intake and Output Vital Signs (last 24 hours): Temp Pulse Resp BP Pulse Ox 98 F 115 H 18 173/72 H 97 05/24/18 08:00 05/24/18 09:00 05/24/18 09:00 05/24/18 08:18 05/24/18 09:00 Intake and Output: 05/24/18 05/24/18 06:59 18:59 Intake Total 1150 425 Output Total 800 300 Balance 350 125 - Medications Medications: Current Medications Famotidine (Pepcid) 20 mg IVP Q12 [facility] Last Admin: 05/23/18 21:21 Dose: 20 mg Rosuvastatin Calcium (Crestor) 5 mg PO HS [facility] Last Admin: 05/23/18 21:21 Dose: 5 mg - Labs Labs: 05/24/18 05:52 05/24/18 05:52 PT 10.9 SECONDS (9.7-12.2) 05/22/18 14:03 INR 1.0 05/22/18 14:03 APTT 37 SECONDS (21-34) H 05/22/18 14:03 - Constitutional Appears: Well, No Acute Distress - Head Exam Head Exam: ATRAUMATIC, NORMOCEPHALIC - Eye Exam Eye Exam: EOMI, PERRL. absent: Nystagmus - ENT Exam ENT Exam: Mucous Membranes Moist - Respiratory Exam Respiratory Exam: Clear to Ausculation Bilateral, NORMAL BREATHING PATTERN - Cardiovascular Exam Cardiovascular Exam: REGULAR RHYTHM, +S1, +S2 - GI/Abdominal Exam GI & Abdominal Exam: Soft, Normal Bowel Sounds. absent: Tenderness - Neurological Exam Neurological Exam: Alert, Awake, CN II-XII Intact, Oriented x3 Additional comments: Mild dysmetria bilaterally with finger to nose testing Mild sensory deficits on right arm Strength 5/5 of upper extremities and lower extremities Able to walk Able to name objects Alert and oriented to self, place and time [facility] 1 Assessment and Plan - Assessment and Plan (Free Text) Assessment: 57 year old female with hitstory of HTN, RA who presents for right sided numbness and weakness. Plan: Right arm and leg numbness and weakness 2/2 CT head noted for bilateral quality health had chronic lacunae identified. Examination otherwise unremarkable. CAT scan for performed prior to TPA. 2/2 CT head/neck: No large vessel occlusion in the brain. Limited bilateral cavernous ICA atherosclerotic changes without significant stenosis. High-grade stenosis proximal right common carotid artery with right CC otherwise widely patent. Widely patent left CC throughout. Incidental high-grade stenosis of the origin of the left subclavian artery. 2/[address] head noted for cytotoxic edema is not identified in the small subsegments of the left frontal and parietal lobes by normal-appearing parenchyma therefore suggested an embolic type of ischemic infarcts trace petechial hemorrhage is difficult to exclude from normal density parenchymal in the central left frontal infarct no gross intracranial hemorrhage appreciable. Patient received TPA 2 ASA 81mg [facility] 1 Follow up Homocysteine, Protein C, S, Antithrombin 3, prothrombin gene 3 mutation, factor 5 leiden. Follow up brain MRI without contrast Case discussed with Dr. Wilder Benedict, PGY1
[2018-05-24 11:00] LABS: CK-MB 0.55 ng/mL (0.0-3.38)
--- NOTE | 2018-05-24 18:56 | CP.CCUPN ---
CCU Subjective - Physician Review Subjective (Free Text): PGY-[address] ICU progress note for Dr Maciel Choi Patient is seen and examined at bedside. Family at bedside, no acute changes overnight, patient has no complaints at this time, reports improvement in right hand and leg weakness and numbness. Denies any other symptoms at this time. 05/24/18 20:19 Critical Care Time Spent (in minutes): 40 CCU Objective - Vital Signs / Intake & Output Vital Signs (Last 4 hours): Vital Signs Temp Pulse Resp BP Pulse Ox 05/24/18 18:18 89 13 162/60 H 97 05/24/18 18:00 90 16 98 05/24/18 17:30 116 H 25 H 96 05/24/18 17:18 112 H 21 143/64 95 05/24/18 17:00 98 H 21 98 05/24/18 16:30 93 H 23 99 05/24/18 16:18 87 22 156/54 H 97 05/24/18 16:00 99.1 F 89 16 98 05/24/18 15:30 89 20 96 05/24/18 15:19 88 21 134/57 L 99 05/24/18 15:00 95 H 19 100 Intake and Output (Last 8hrs): Intake & Output 05/24/18 05/24/18 05/24/18 06:59 14:59 22:59 Intake Total 700 700 100 Output Total 500 500 200 Balance 200 200 -100 Weight 118 lb Intake: Intake, IV Amount 600 300 Right Hand 600 300 Oral 100 400 100 Output: Urine 500 500 200 Urine, Voided 500 500 200 Other: # Voids Urine, Voided 0 0 # Bowel Movements 0 0 - Physical Exam Head: Positive for: Atraumatic, Normocephalic Pupils: Positive for: PERRL Extroacular Muscles: Positive for: EOMI Conjunctiva: Positive for: Normal Mouth: Positive for: Moist Mucous Membranes Neck: Positive for: Normal Range of Motion Respiratory/Chest: Positive for: Clear to Auscultation Cardiovascular: Positive for: Regular Rate and Rhythm, Murmurs, Normal S1, S2 Abdomen: Positive for: Normal Bowel Sounds. Negative for: Tenderness, Distention Upper Extremity: Positive for: Normal Inspection. Negative for: Edema Lower Extremity: Positive for: Normal Inspection. Negative for: Edema Neurological: Positive for: CN II-XII Intact, Speech Normal, Motor Func Grossly Intact, Normal Cerebellar Funct, Memory Normal Skin: Positive for: Warm, Normal Color Psychiatric: Positive for: Alert, Oriented x 3, Normal Insight, Normal Concentration - Medications Active Medications: Active Medications Generic Name Dose Route Start Last Admin Trade Name Freq PRN Reason Stop Dose Admin Aspirin 81 mg 05/24/18 11:30 05/24/18 12:50 Aspirin Chewable PO 81 mg DAILY BEATRIZ Administration Famotidine 20 mg 05/22/18 22:00 05/24/18 11:03 Pepcid IVP 20 mg Q12 BEATRIZ Administration Rosuvastatin Calcium 5 mg 05/23/18 22:00 05/23/18 21:21 Crestor PO 5 mg HS BEATRIZ Administration - Patient Studies Lab Studies: Microbiology Studies 05/22/18 19:55 MRSA Culture (Admit) - Final Naris MRSA NOT DETECTED Lab Studies 05/24/18 05/24/18 05/24/18 Range/Units 16:27 13:36 12:40 WBC (4.8-10.8) K/uL RBC (3.80-5.20) Mil/uL Hgb (11.0-16.0) g/dL Hct (34.0-47.0) % MCV (81.0-99.0) fL MCH (27.0-31.0) pg MCHC (33.0-37.0) g/dL RDW (11.5-14.5) % Plt Count (130-400) K/uL MPV (7.2-11.7) fL Neut % (Auto) (50.0-75.0) % Lymph % (Auto) (20.0-40.0) % [place] % (Auto) (0.0-10.0) % Eos % (Auto) (0.0-4.0) % Baso % (Auto) (0.0-2.0) % Neut # (Auto) (1.8-7.0) K/uL Lymph # (Auto) (1.0-4.3) K/uL [place] # (Auto) (0.0-0.8) K/uL Eos # (Auto) (0.0-0.7) K/uL Baso # (Auto) (0.0-0.2) K/uL Sodium (132-148) mmol/L Potassium (3.6-5.2) mmol/L Chloride (98-107) mmol/L Carbon Dioxide (22-30) mmol/L Anion Gap (10-20) BUN (7-17) mg/dL Creatinine (0.7-1.2) mg/dL Est GFR ( Amer) Est GFR (Non-Af Amer) POC Glucose (mg/dL) 109 111 H (65-110) mg/dL Random Glucose (65-105) mg/dL Calcium (8.6-10.4) mg/dl Phosphorus (2.5-4.5) mg/dL Magnesium (1.6-2.3) mg/dL Total Bilirubin (0.2-1.3) mg/dL AST (14-36) U/L ALT (9-52) U/L Alkaline Phosphatase (38-126) U/L Total Creatine Kinase (30-135) U/L CK-MB (Mass) (0.0-3.38) ng/mL Troponin I (0.00-0.120) ng/mL Total Protein (6.3-8.3) g/dL Albumin (3.5-5.0) g/dL Globulin (2.2-3.9) gm/dL Albumin/Globulin Ratio (1.0-2.1) Homocysteine 7.3 (4.7-12.6) umol/L 05/24/18 05/24/18 05/24/18 Range/Units 07:15 05:52 05:52 WBC 7.6 (4.8-10.8) K/uL RBC 4.82 (3.80-5.20) Mil/uL Hgb 12.6 (11.0-16.0) g/dL Hct 38.9 (34.0-47.0) % MCV 80.8 L (81.0-99.0) fL MCH 26.2 L (27.0-31.0) pg MCHC 32.4 L (33.0-37.0) g/dL RDW 14.2 (11.5-14.5) % Plt Count 217 (130-400) K/uL MPV 7.9 (7.2-11.7) fL Neut % (Auto) 68.6 (50.0-75.0) % Lymph % (Auto) 21.8 (20.0-40.0) % [place] % (Auto) 6.5 (0.0-10.0) % Eos % (Auto) 2.6 (0.0-4.0) % Baso % (Auto) 0.5 (0.0-2.0) % Neut # (Auto) 5.2 (1.8-7.0) K/uL Lymph # (Auto) 1.6 (1.0-4.3) K/uL [place] # (Auto) 0.5 (0.0-0.8) K/uL Eos # (Auto) 0.2 (0.0-0.7) K/uL Baso # (Auto) 0.0 (0.0-0.2) K/uL Sodium 139 (132-148) mmol/L Potassium 3.3 L (3.6-5.2) mmol/L Chloride 103 (98-107) mmol/L Carbon Dioxide 29 (22-30) mmol/L Anion Gap 10 (10-20) BUN 11 (7-17) mg/dL Creatinine 0.7 (0.7-1.2) mg/dL Est GFR ( Amer) > 60 Est GFR (Non-Af Amer) > 60 POC Glucose (mg/dL) 100 (65-110) mg/dL Random Glucose 92 (65-105) mg/dL Calcium 8.7 (8.6-10.4) mg/dl Phosphorus 4.0 (2.5-4.5) mg/dL Magnesium 1.9 (1.6-2.3) mg/dL Total Bilirubin 0.5 (0.2-1.3) mg/dL AST 27 (14-36) U/L ALT 20 (9-52) U/L Alkaline Phosphatase 83 (38-126) U/L Total Creatine Kinase 30 (30-135) U/L CK-MB (Mass) 0.55 (0.0-3.38) ng/mL Troponin I 0.0240 (0.00-0.120) ng/mL Total Protein 6.3 (6.3-8.3) g/dL Albumin 3.6 (3.5-5.0) g/dL Globulin 2.6 (2.2-3.9) gm/dL Albumin/Globulin Ratio 1.4 (1.0-2.1) Homocysteine (4.7-12.6) umol/L 05/23/18 05/23/18 Range/Units 21:48 16:01 WBC (4.8-10.8) K/uL RBC (3.80-5.20) Mil/uL Hgb (11.0-16.0) g/dL Hct (34.0-47.0) % MCV (81.0-99.0) fL MCH (27.0-31.0) pg MCHC (33.0-37.0) g/dL RDW (11.5-14.5) % Plt Count (130-400) K/uL MPV (7.2-11.7) fL Neut % (Auto) (50.0-75.0) % Lymph % (Auto) (20.0-40.0) % [place] % (Auto) (0.0-10.0) % Eos % (Auto) (0.0-4.0) % Baso % (Auto) (0.0-2.0) % Neut # (Auto) (1.8-7.0) K/uL Lymph # (Auto) (1.0-4.3) K/uL [place] # (Auto) (0.0-0.8) K/uL Eos # (Auto) (0.0-0.7) K/uL Baso # (Auto) (0.0-0.2) K/uL Sodium (132-148) mmol/L Potassium (3.6-5.2) mmol/L Chloride (98-107) mmol/L Carbon Dioxide (22-30) mmol/L Anion Gap (10-20) BUN (7-17) mg/dL Creatinine (0.7-1.2) mg/dL Est GFR ( Amer) Est GFR (Non-Af Amer) POC Glucose (mg/dL) 105 74 (65-110) mg/dL Random Glucose (65-105) mg/dL Calcium (8.6-10.4) mg/dl Phosphorus (2.5-4.5) mg/dL Magnesium (1.6-2.3) mg/dL Total Bilirubin (0.2-1.3) mg/dL AST (14-36) U/L ALT (9-52) U/L Alkaline Phosphatase (38-126) U/L Total Creatine Kinase (30-135) U/L CK-MB (Mass) (0.0-3.38) ng/mL Troponin I (0.00-0.120) ng/mL Total Protein (6.3-8.3) g/dL Albumin (3.5-5.0) g/dL Globulin (2.2-3.9) gm/dL Albumin/Globulin Ratio (1.0-2.1) Homocysteine (4.7-12.6) umol/L Laboratory Results - last 24 hr 05/23/18 05/23/18 05/24/18 16:01 21:48 05:52 WBC 7.6 RBC 4.82 Hgb 12.6 Hct 38.9 MCV 80.8 L MCH 26.2 L MCHC 32.4 L RDW 14.2 Plt Count 217 MPV 7.9 Neut % (Auto) 68.6 Lymph % (Auto) 21.8 [place] % (Auto) 6.5 Eos % (Auto) 2.6 Baso % (Auto) 0.5 Neut # (Auto) 5.2 Lymph # (Auto) 1.6 [place] # (Auto) 0.5 Eos # (Auto) 0.2 Baso # (Auto) 0.0 Sodium Potassium Chloride Carbon Dioxide Anion Gap BUN Creatinine Est GFR ( Amer) Est GFR (Non-Af Amer) POC Glucose (mg/dL) 74 105 Random Glucose Calcium Phosphorus Magnesium Total Bilirubin AST ALT Alkaline Phosphatase Total Creatine Kinase CK-MB (Mass) Troponin I Total Protein Albumin Globulin Albumin/Globulin Ratio Homocysteine 05/24/18 05/24/18 05/24/18 05:52 07:15 12:40 WBC RBC Hgb Hct MCV MCH MCHC RDW Plt Count MPV Neut % (Auto) Lymph % (Auto) [place] % (Auto) Eos % (Auto) Baso % (Auto) Neut # (Auto) Lymph # (Auto) [place] # (Auto) Eos # (Auto) Baso # (Auto) Sodium 139 Potassium 3.3 L Chloride 103 Carbon Dioxide 29 Anion Gap 10 BUN 11 Creatinine 0.7 Est GFR ( Amer) > 60 Est GFR (Non-Af Amer) > 60 POC Glucose (mg/dL) 100 111 H Random Glucose 92 Calcium 8.7 Phosphorus 4.0 Magnesium 1.9 Total Bilirubin 0.5 AST 27 ALT 20 Alkaline Phosphatase 83 Total Creatine Kinase 30 CK-MB (Mass) 0.55 Troponin I 0.0240 Total Protein 6.3 Albumin 3.6 Globulin 2.6 Albumin/Globulin Ratio 1.4 Homocysteine 05/24/18 05/24/18 13:36 16:27 WBC RBC Hgb Hct MCV MCH MCHC RDW Plt Count MPV Neut % (Auto) Lymph % (Auto) [place] % (Auto) Eos % (Auto) Baso % (Auto) Neut # (Auto) Lymph # (Auto) [place] # (Auto) Eos # (Auto) Baso # (Auto) Sodium Potassium Chloride Carbon Dioxide Anion Gap BUN Creatinine Est GFR ( Amer) Est GFR (Non-Af Amer) POC Glucose (mg/dL) 109 Random Glucose Calcium Phosphorus Magnesium Total Bilirubin AST ALT Alkaline Phosphatase Total Creatine Kinase CK-MB (Mass) Troponin I Total Protein Albumin Globulin Albumin/Globulin Ratio Homocysteine 7.3 EKG/Cardiology Studies: Cardiology / EKG Studies 05/24/18 09:45 EKG [ELECTROCARDIOGRAM] Stat Comment: Mode Of Transportation: Reason For Exam: r/o afib Fingerstick Blood Sugar Results: 109 Critical Care Progress Note - Nutrition Nutrition: Nutrition Category Date Time Status Heart Healthy Diet [DIET] Diets 05/22/18 Lunch Active Assessment/Plan - Assessment and Plan (Free Text) Plan: 57 year old female with past med history of hypertension, arthritis came to ED for right-sided hand weakness. Received tpa 2:34 pm on 05/22. CTA negative for intracerebral occlusion, some external carotid stenosis. repeat CT 2/3 showing possible embolic type ischemic infarct, patient reporting improving symptoms, pending MRI head, carotid doppler, Neuro and cardio consult, pending echo official report. Neuro AAOx3 improved right hand and right leg weakness and numbness CT head - no bleed CTA head neck- High-grade stenosis proximal right common carotid artery with right CC otherwise widely patent repeat CT 2/3 -cytotoxic edema is small sub segments of left frontal and parietal lobes suggests embolic type ischemic infarcts, difficult to exclude petechial hermoohrage, no gross intracranial hemorrhage appreciable. received TPA / MRI head w/o contrast- f/u Carotid doppler - f/u continue ASA, Crestor Dr Hdz - Neuro - f/u recs neuro Q4H Pulm: no acute issues cont to monitor O2 Sat CV: EKG - repeat to rule out afib - Normal sinus rhythm troponin negative x 4 BNP - 408 Echo pending official read ASA, Crestor Dr Bhandari - cardio consult - f/u recs Renal Potassium low this am - 3.3 Kdur PO 40meq x1 dose Endo no acute issues GI: HHD Pepcid ID: no issues PPX DVT: c/i due to possible acute bleed, SCDS GI: pepcid Plan discussed with Dr Steph Weldon, PGY-1 - Date & Time Date: 05/24/18 Time: 11:00
[2018-05-25] MEDS ORDERED: Labetalol 5mg/ml (4ml) IVP ONE (00:28)
[2018-05-25 06:27] LABS: BASO # 0.1 K/uL (0.0-0.2); BASO % 0.6 % (0.0-2.0); EOS # 0.3 K/uL (0.0-0.7); EOS % 3.2 % (0.0-4.0); HEMOGLOBIN 11.9 g/dL (11.0-16.0); LYMPH # 1.7 K/uL (1.0-4.3); LYMPH % 19.3 % (20.0-40.0); MEAN CELL VOLUME 80.6 fL (81.0-99.0); MEAN CORPUSCULAR HEMOGLOBIN 26.1 pg (27.0-31.0); MEAN CORPUSCULAR HGB CONC 32.3 g/dL (33.0-37.0); MEAN PLATELET VOLUME 7.9 fL (7.2-11.7); MONO # 0.6 K/uL (0.0-0.8); NEUT % 69.9 % (50.0-75.0); NRBC % 0.1 % (0.0-2.0); RBC 4.58 Mil/uL (3.80-5.20); RED CELL DISTRIBUTION WIDTH 14.4 % (11.5-14.5); WHITE BLOOD COUNT 8.6 K/uL (4.8-10.8)
[2018-05-25 07:00] LABS: ALB/GLOB RATIO 1.5 (1.0-2.1); ALBUMIN 3.9 g/dL (3.5-5.0); ALT/SGPT 11 U/L (9-52); AST/SGOT 26 U/L (14-36); BLOOD UREA NITROGEN 13 mg/dL (7-17); CALCIUM 9.1 mg/dl (8.6-10.4); GFR NON-AFRICAN AMERICAN > 60
--- NOTE | 2018-05-25 10:02 | CARD ---
APPROVED REPORT Date of service: 05/23/2018 EKG Measurement Heart [id number] <Conclusion> Poor data quality, interpretation may be adversely affected Sinus rhythm with occasional premature ventricular complexes Left ventricular hypertrophy with repolarization abnormality Abnormal ECG
[2018-05-25] MEDS ORDERED: Labetalol 5mg/ml (4ml) IVP STA (10:57)
--- NOTE | 2018-05-25 12:30 | CARD ---
APPROVED REPORT Date of service: 05/24/2018 EXAM: Two-dimensional and M-mode echocardiogram with Doppler and color Doppler. INDICATION RISK FACTORS Hypertension 2D DIMENSIONS IVSd1.7 (0.7-1.1cm)LVDd3.9 (3.9-5.9cm) PWd1.2 (0.7-1.1cm)LA Wdeikf75 (18-58mL) LVDs2.1 (2.5-4.0cm)FS (%) 46.0 % LVEF (%)77.9 (>50%)LVEF (Ruibe's)63.76 % IVC0.00 cm M-Mode DIMENSIONS Left Atrium (MM)3.32 (2.5-4.0cm)IVSd1.49 (0.7-1.1cm) Aortic Root2.95 (2.2-3.7cm)LVDd4.10 (4.0-5.6cm) Aortic Cusp Exc.1.53 (1.5-2.0cm)PWd1.34 (0.7-1.1cm) FS (%) 41 %LVDs2.43 (2.0-3.8cm) LVEF (%)72 (>50%) Aortic Valve AI P 1/2 [id number] Mitral Valve MV E Ziwgotmb46.7cm/sMV A Lpldpxik071.4cm/sE/A ratio0.4 UFRG609.71 cm/s TDI Lateral E' Peak V3.58cm/sMedial E' Peak V4.42cm/sE/Lateral E'14.7 E/Medial E'11.9 Tricuspid Valve TR Peak Etzxxfnp757ks/sTR Peak [id number] <Conclusion> Left ventricle: thickness:concentric thickening; size: normal; overall ejection fraction: 65%: diastolic filling pressures: elevated Mitral valve: annulus: normal: leaflets: normal: excursion: normal; no significant trans-mitral gradient: no significant incompetence: left atrium: normal Aortic valve: leaflets:calcific thickening: excursion: normal; no significant trans-aortic gradient: mild to moderate incompetence: aortic root: normal Right sided Structures: Pulmonary valve: normal; no significant incompetence; Tricuspid valve: normal; no significant incompetence: Intra-cardiac hemodynamics: pulmonary systolic pressures: normal; central venous pressures: normal No pericardial effusion
--- NOTE | 2018-05-25 13:43 | CP.PCM.PN ---
Subjective - Date & Time of Evaluation Date of Evaluation: 05/25/18 Time of Evaluation: 10:45 - Subjective Subjective: Neurology Progress Note Patient seen and examined at bedside. Patient states that her right arm and leg weakness has much improved than before. She denies blurry vision, changes in hearing, dizziness, nausea, vomiting. Objective - Vital Signs/Intake and Output Vital Signs (last 24 hours): Temp Pulse Resp BP Pulse Ox 98.2 F 101 H 15 151/50 H 97 05/25/18 12:00 05/25/18 13:00 05/25/18 13:00 05/25/18 12:58 05/25/18 13:00 Intake and Output: 05/25/18 05/25/18 06:59 18:59 Intake Total 250 660 Output Total 600 300 Balance -350 360 - Medications Medications: Current Medications Aspirin (Aspirin Chewable) 81 mg PO DAILY [facility] Last Admin: 05/25/18 09:18 Dose: 81 mg Famotidine (Pepcid) 20 mg PO BID [facility] Last Admin: 05/25/18 09:18 Dose: 20 mg Rosuvastatin Calcium (Crestor) 5 mg PO [facility] Last Admin: 05/24/18 21:17 Dose: 5 mg - Labs Labs: 05/25/18 06:19 05/25/18 06:19 PT 10.9 SECONDS (9.7-12.2) 05/22/18 14:03 INR 1.0 05/22/18 14:03 APTT 37 SECONDS (21-34) H 05/22/18 14:03 - Constitutional Appears: Well, No Acute Distress - Head Exam Head Exam: ATRAUMATIC, NORMOCEPHALIC - Eye Exam Eye Exam: EOMI, PERRL - ENT Exam ENT Exam: Mucous Membranes Moist - Neck Exam Neck Exam: Full ROM - Respiratory Exam Respiratory Exam: Clear to Ausculation Bilateral, NORMAL BREATHING PATTERN - Cardiovascular Exam Cardiovascular Exam: REGULAR RHYTHM, +S1, +S2 - GI/Abdominal Exam GI & Abdominal Exam: Soft, Normal Bowel Sounds. absent: Tenderness - Neurological Exam Neurological Exam: Alert, Awake, CN II-XII Intact, Oriented x3 Additional comments: Strength 5/5 of upper and lower extremities Able to walk Alert and oriented x3 Mild weakness of left arm Dysmetria mild bilaterally - Skin Skin Exam: Dry, Intact, Warm Assessment and Plan - Assessment and Plan (Free Text) Assessment: 57 year old female with hitstory of HTN, RA who presents for right sided numbness and weakness. Plan: Right sided weakness 2/2 CT head noted for bilateral caudate head lacunes identified. Examination otherwise unremarkable. CAT scan for performed prior to TPA. 2/2 CT head/neck: No large vessel occlusion in the brain. Limited bilateral cavernous ICA atherosclerotic changes without significant stenosis. High-grade stenosis proximal right common carotid artery with right CC otherwise widely patent. Widely patent left CC throughout. Incidental high-grade stenosis of the origin of the left subclavian artery. 2/[address] head noted for cytotoxic edema is not identified in the small subsegments of the left frontal and parietal lobes by normal-appearing parenchyma therefore suggested an embolic type of ischemic infarcts trace petechial hemorrhage is difficult to exclude from normal density parenchymal in the central left frontal infarct no gross intracranial hemorrhage appreciable. 2 MRI brain: 1. Subacute left MCA territory infarction involving the posterior frontal and anterior parietal lobes with mild surrounding moderate vasogenic edema with hemorrhagic transformation. 2. Subacute left MCA territory infarction involving the left posterior parietal lobe. 3. Mild chronic microangiopathic changes and mild age-related global parenchymal volume loss. 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 Patient received TPA 05/22/18 ASA 81mg NIH 1 Follow up Homocysteine, Protein C, S, Antithrombin 3, prothrombin gene 3 mutation, factor 5 leiden. Case discussed with Dr. Wilder Benedict, PGY1
--- NOTE | 2018-05-25 14:32 | CP.PCM.PN ---
<TamikaMckay - Last Filed: 05/25/18 17:27> Subjective - Date & Time of Evaluation Date of Evaluation: 05/25/18 Time of Evaluation: 14:32 - Subjective Subjective: Dr. Bhandari Service Patient seen and examined at bedside. Per nursing no acute events occurred overnight. Patient denies any chest pain, shortness of breath, fevers, chills, headaches, syncopal episodes, extremity weakness, or any other complaints. Objective - Vital Signs/Intake and Output Vital Signs (last 24 hours): Temp Pulse Resp BP Pulse Ox 98.2 F 94 H 30 H 156/54 H 99 05/25/18 12:00 05/25/18 14:05 05/25/18 14:05 05/25/18 14:06 05/25/18 14:05 Intake and Output: 05/25/18 05/25/18 06:59 18:59 Intake Total 250 660 Output Total 600 300 Balance -350 360 - Medications Medications: Current Medications Aspirin (Aspirin Chewable) 81 mg PO DAILY [facility] Last Admin: 05/25/18 09:18 Dose: 81 mg Famotidine (Pepcid) 20 mg PO BID [facility] Last Admin: 05/25/18 09:18 Dose: 20 mg Rosuvastatin Calcium (Crestor) 5 mg PO HS [facility] Last Admin: 05/24/18 21:17 Dose: 5 mg - Labs Labs: 05/25/18 06:19 05/25/18 06:19 PT 10.9 SECONDS (9.7-12.2) 05/22/18 14:03 INR 1.0 05/22/18 14:03 APTT 37 SECONDS (21-34) H 05/22/18 14:03 - Head Exam Head Exam: ATRAUMATIC, NORMAL INSPECTION - Eye Exam Eye Exam: EOMI, Normal appearance Pupil Exam: NORMAL ACCOMODATION, PERRL - ENT Exam ENT Exam: Mucous Membranes Moist, Normal Exam - Neck Exam Neck Exam: Normal Inspection - Respiratory Exam Respiratory Exam: Clear to Ausculation Bilateral, NORMAL BREATHING PATTERN - Cardiovascular Exam Cardiovascular Exam: +S1, +S2 - GI/Abdominal Exam GI & Abdominal Exam: Soft - Extremities Exam Extremities Exam: Full ROM - Neurological Exam Neurological Exam: Alert, Awake, CN II-XII Intact, Oriented x3 - Psychiatric Exam Psychiatric exam: Normal Affect, Normal Mood - Skin Skin Exam: Dry, Intact Assessment and Plan - Assessment and Plan (Free Text) Assessment: 57 year old female with a past medical history of hypertension and rheumatoid arthritis admitted for cva. Plan: 1.CVA CT head: -noted for bilateral quality health had chronic lacunae identified. Examination otherwise unremarkable. CT head/neck neck: -No large vessel occlusion in the brain. Limited bilateral cavernous ICA atherosclerotic changes without significant stenosis. High-grade stenosis proximal right common carotid artery with right CC otherwise widely patent. Widely patent left CC throughout. Incidental high-grade stenosis of the origin of the left subclavian artery. MRI: -1. Subacute left MCA territory infarction involving the posterior frontal and anterior parietal lobes with mild surrounding moderate vasogenic edema with hemorrhagic transformation. 2. Subacute left MCA territory infarction involving the left posterior parietal lobe. 3. Mild chronic microangiopathic changes and mild age-related global parenchymal volume loss. 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 Echo:(Preliminary Read) -LVH, no masses appreciated -small pericardial effusion, mild to moderate aortic insufficiency, negative for shunts BNP: 408 Troponin (-)x4 Neurology consulted. help appreciated. Awaiting hypercoagulable workup and Brain MRI results. Will continue to follow. Medications: tPA given in the Emergency Room Crestor 5mg PO HS [facility] ASA 81mg PO Daily ppx -Pepcid 20mg IVP Q12 [facility]ATRIZ Plan discussed with Dr. Bhandari. Mckay Lundberg, PGY-2 <Eduardo Bhandari - Last Filed: 05/25/18 22:51> Objective - Vital Signs/Intake and Output Vital Signs (last 24 hours): Temp Pulse Resp BP Pulse Ox 98 F 87 23 139/60 95 05/25/18 20:00 05/25/18 22:00 05/25/18 22:00 05/25/18 21:58 05/25/18 22:00 Intake and Output: 05/25/18 05/26/18 18:59 06:59 Intake Total 1020 100 Output Total 750 250 Balance 270 -150 - Medications Medications: Current Medications Famotidine (Pepcid) 20 mg PO BID [facility] Last Admin: 05/25/18 17:23 Dose: 20 mg Rosuvastatin Calcium (Crestor) 5 mg PO HS [facility] Last Admin: 05/25/18 21:18 Dose: 5 mg - Labs Labs: 05/25/18 06:19 02/05/19 06:19 PT 10.9 SECONDS (9.7-12.2) 05/22/18 14:03 INR 1.0 05/22/18 14:03 APTT 37 SECONDS (21-34) H 05/22/18 14:03 Assessment and Plan - Assessment and Plan (Free Text) Assessment: Patient seen and evaluated personally by me. Plan of care d/w the resident and as documented
--- NOTE | 2018-05-25 15:55 | MRI ---
Date of service: 05/25/2018 PROCEDURE: MRI BRAIN WITHOUT CONTRAST HISTORY: Possible ischemic stroke COMPARISON: Noncontrast head CT from 05/23/2018. TECHNIQUE: Multiplanar, multisequence MR images of the brain were obtained without intravenous contrast enhancement. FINDINGS: HEMORRHAGE: None DWI: There is a wedge-shaped area of restricted diffusion in the left posterior frontal lobe and anterior parietal lobe with moderate surrounding vasogenic edema. There is a 2nd wedge-shaped area of restricted diffusion in the left posterior parietal lobe. BRAIN PARENCHYMA: There is T2/FLAIR hyperintensity corresponding to the areas of restricted diffusion in the left posterior frontal, anterior parietal and posterior parietal lobes. There is T2/FLAIR hypointense signal and corresponding increased magnetic susceptibility in the left frontal lobe within the area of restricted diffusion. There is no mass, mass effect or abnormal extra-axial fluid collection. There are small old lacunar infarctions in the left cerebellar hemisphere. There are mild chronic microangiopathic changes. The midline sagittal structures are normal. VENTRICLES: There is mild age-related global parenchymal volume loss and proportionate enlargement of the ventricles and cortical sulci. CRANIUM: Unremarkable. ORBITS: There is normal bone marrow signal pattern. PARANASAL SINUSES/MASTOIDS: Clear VASCULAR SYSTEM: There are normal signal voids in the larger intracranial arteries. OTHER FINDINGS: None. IMPRESSION: 1. Subacute left MCA territory infarction involving the posterior frontal and anterior parietal lobes with mild surrounding moderate vasogenic edema with hemorrhagic transformation. 2. Subacute left MCA territory infarction involving the left posterior parietal lobe. 3. Mild chronic microangiopathic changes and mild age-related global parenchymal volume loss. 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
--- NOTE | 2018-05-25 17:48 | CP.CCUPN ---
<Corey Dickey S - Last Filed: 05/25/18 18:01> CCU Subjective - Physician Review Critical Care Time Spent (in minutes): 35 CCU Objective - Vital Signs / Intake & Output Vital Signs (Last 4 hours): Vital Signs Pulse Resp BP Pulse Ox 05/25/18 17:58 111 H 24 146/61 100 05/25/18 17:30 105 H 22 100 05/25/18 17:00 111 H 32 H 73 L 05/25/18 16:59 118 H 33 H 144/95 H 05/25/18 16:30 86 21 05/25/18 16:00 91 H 25 H 05/25/18 15:58 87 25 H 170/63 H 05/25/18 15:30 86 24 100 05/25/18 15:29 102 H 174/64 H 05/25/18 14:06 92 H 27 H 156/54 H 98 05/25/18 14:05 94 H 30 H 99 Intake and Output (Last 8hrs): Intake & Output 05/25/18 05/25/18 05/25/18 06:59 14:59 22:59 Intake Total 50 660 120 Output Total 350 300 200 Balance -300 360 -80 Weight 117 lb Intake: Oral 50 660 120 Output: Urine 350 300 200 Urine, Voided 350 300 200 Other: # Voids Urine, Voided 1 1 1 - Medications Active Medications: Active Medications Generic Name Dose Route Start Last Admin Trade Name Freq PRN Reason Stop Dose Admin Famotidine 20 mg 05/24/18 20:15 05/25/18 17:23 Pepcid PO 20 mg BID BEATRIZ Administration Rosuvastatin Calcium 5 mg 05/23/18 22:00 05/24/18 21:17 Crestor PO 5 mg HS BEATRIZ Administration - Patient Studies Lab Studies: Lab Studies 05/25/18 05/25/18 05/25/18 Range/Units 16:15 11:45 07:18 WBC (4.8-10.8) K/uL RBC (3.80-5.20) Mil/uL Hgb (11.0-16.0) g/dL Hct (34.0-47.0) % MCV (81.0-99.0) fL MCH (27.0-31.0) pg MCHC (33.0-37.0) g/dL RDW (11.5-14.5) % Plt Count (130-400) K/uL MPV (7.2-11.7) fL Neut % (Auto) (50.0-75.0) % Lymph % (Auto) (20.0-40.0) % [place] % (Auto) (0.0-10.0) % Eos % (Auto) (0.0-4.0) % Baso % (Auto) (0.0-2.0) % Neut # (Auto) (1.8-7.0) K/uL Lymph # (Auto) (1.0-4.3) K/uL [place] # (Auto) (0.0-0.8) K/uL Eos # (Auto) (0.0-0.7) K/uL Baso # (Auto) (0.0-0.2) K/uL Sodium (132-148) mmol/L Potassium (3.6-5.2) mmol/L Chloride (98-107) mmol/L Carbon Dioxide (22-30) mmol/L Anion Gap (10-20) BUN (7-17) mg/dL Creatinine (0.7-1.2) mg/dL Est GFR ( Amer) Est GFR (Non-Af Amer) POC Glucose (mg/dL) 101 144 H 98 (65-110) mg/dL Random Glucose (65-105) mg/dL Calcium (8.6-10.4) mg/dl Phosphorus (2.5-4.5) mg/dL Magnesium (1.6-2.3) mg/dL Total Bilirubin (0.2-1.3) mg/dL AST (14-36) U/L ALT (9-52) U/L Alkaline Phosphatase (38-126) U/L Total Protein (6.3-8.3) g/dL Albumin (3.5-5.0) g/dL Globulin (2.2-3.9) gm/dL Albumin/Globulin Ratio (1.0-2.1) ALIA Screen (Negative) ALIA Titer (<1:40) Titer ALIA Pattern 05/25/18 05/25/18 05/24/18 Range/Units 06:19 06:19 21:22 WBC 8.6 (4.8-10.8) K/uL RBC 4.58 (3.80-5.20) Mil/uL Hgb 11.9 (11.0-16.0) g/dL Hct 36.9 (34.0-47.0) % MCV 80.6 L (81.0-99.0) fL MCH 26.1 L (27.0-31.0) pg MCHC 32.3 L (33.0-37.0) g/dL RDW 14.4 (11.5-14.5) % Plt Count 220 (130-400) K/uL MPV 7.9 (7.2-11.7) fL Neut % (Auto) 69.9 (50.0-75.0) % Lymph % (Auto) 19.3 L (20.0-40.0) % [place] % (Auto) 7.0 (0.0-10.0) % Eos % (Auto) 3.2 (0.0-4.0) % Baso % (Auto) 0.6 (0.0-2.0) % Neut # (Auto) 6.0 (1.8-7.0) K/uL Lymph # (Auto) 1.7 (1.0-4.3) K/uL [place] # (Auto) 0.6 (0.0-0.8) K/uL Eos # (Auto) 0.3 (0.0-0.7) K/uL Baso # (Auto) 0.1 (0.0-0.2) K/uL Sodium 139 (132-148) mmol/L Potassium 3.9 (3.6-5.2) mmol/L Chloride 105 (98-107) mmol/L Carbon Dioxide 26 (22-30) mmol/L Anion Gap 12 (10-20) BUN 13 (7-17) mg/dL Creatinine 0.8 (0.7-1.2) mg/dL Est GFR ( Amer) > 60 Est GFR (Non-Af Amer) > 60 POC Glucose (mg/dL) 160 H (65-110) mg/dL Random Glucose 96 (65-105) mg/dL Calcium 9.1 (8.6-10.4) mg/dl Phosphorus 4.4 (2.5-4.5) mg/dL Magnesium 2.0 (1.6-2.3) mg/dL Total Bilirubin 0.6 (0.2-1.3) mg/dL AST 26 (14-36) U/L ALT 11 (9-52) U/L Alkaline Phosphatase 79 (38-126) U/L Total Protein 6.4 (6.3-8.3) g/dL Albumin 3.9 (3.5-5.0) g/dL Globulin 2.5 (2.2-3.9) gm/dL Albumin/Globulin Ratio 1.5 (1.0-2.1) ALIA Screen (Negative) ALIA Titer (<1:40) Titer ALIA Pattern 05/23/18 Range/Units 02:38 WBC (4.8-10.8) K/uL RBC (3.80-5.20) Mil/uL Hgb (11.0-16.0) g/dL Hct (34.0-47.0) % MCV (81.0-99.0) fL MCH (27.0-31.0) pg MCHC (33.0-37.0) g/dL RDW (11.5-14.5) % Plt Count (130-400) K/uL MPV (7.2-11.7) fL Neut % (Auto) (50.0-75.0) % Lymph % (Auto) (20.0-40.0) % [place] % (Auto) (0.0-10.0) % Eos % (Auto) (0.0-4.0) % Baso % (Auto) (0.0-2.0) % Neut # (Auto) (1.8-7.0) K/uL Lymph # (Auto) (1.0-4.3) K/uL [place] # (Auto) (0.0-0.8) K/uL Eos # (Auto) (0.0-0.7) K/uL Baso # (Auto) (0.0-0.2) K/uL Sodium (132-148) mmol/L Potassium (3.6-5.2) mmol/L Chloride (98-107) mmol/L Carbon Dioxide (22-30) mmol/L Anion Gap (10-20) BUN (7-17) mg/dL Creatinine (0.7-1.2) mg/dL Est GFR ( Amer) Est GFR (Non-Af Amer) POC Glucose (mg/dL) (65-110) mg/dL Random Glucose (65-105) mg/dL Calcium (8.6-10.4) mg/dl Phosphorus (2.5-4.5) mg/dL Magnesium (1.6-2.3) mg/dL Total Bilirubin (0.2-1.3) mg/dL AST (14-36) U/L ALT (9-52) U/L Alkaline Phosphatase (38-126) U/L Total Protein (6.3-8.3) g/dL Albumin (3.5-5.0) g/dL Globulin (2.2-3.9) gm/dL Albumin/Globulin Ratio (1.0-2.1) ALIA Screen Positive H (Negative) ALIA Titer 1:80 H (<1:40) Titer ALIA Pattern Homogeneous H Laboratory Results - last 24 hr 05/23/18 05/24/18 05/25/18 02:38 21:22 06:19 WBC 8.6 RBC 4.58 Hgb 11.9 Hct 36.9 MCV 80.6 L MCH 26.1 L MCHC 32.3 L RDW 14.4 Plt Count 220 MPV 7.9 Neut % (Auto) 69.9 Lymph % (Auto) 19.3 L [place] % (Auto) 7.0 Eos % (Auto) 3.2 Baso % (Auto) 0.6 Neut # (Auto) 6.0 Lymph # (Auto) 1.7 [place] # (Auto) 0.6 Eos # (Auto) 0.3 Baso # (Auto) 0.1 Sodium Potassium Chloride Carbon Dioxide Anion Gap BUN Creatinine Est GFR ( Amer) Est GFR (Non-Af Amer) POC Glucose (mg/dL) 160 H Random Glucose Calcium Phosphorus Magnesium Total Bilirubin AST ALT Alkaline Phosphatase Total Protein Albumin Globulin Albumin/Globulin Ratio ALIA Screen Positive H ALIA Titer 1:80 H ALIA Pattern Homogeneous H 05/25/18 05/25/18 05/25/18 06:19 07:18 11:45 WBC RBC Hgb Hct MCV MCH MCHC RDW Plt Count MPV Neut % (Auto) Lymph % (Auto) [place] % (Auto) Eos % (Auto) Baso % (Auto) Neut # (Auto) Lymph # (Auto) [place] # (Auto) Eos # (Auto) Baso # (Auto) Sodium 139 Potassium 3.9 Chloride 105 Carbon Dioxide 26 Anion Gap 12 BUN 13 Creatinine 0.8 Est GFR ( Amer) > 60 Est GFR (Non-Af Amer) > 60 POC Glucose (mg/dL) 98 144 H Random Glucose 96 Calcium 9.1 Phosphorus 4.4 Magnesium 2.0 Total Bilirubin 0.6 AST 26 ALT 11 Alkaline Phosphatase 79 Total Protein 6.4 Albumin 3.9 Globulin 2.5 Albumin/Globulin Ratio 1.5 ALIA Screen ALIA Titer ALIA Pattern 05/25/18 16:15 WBC RBC Hgb Hct MCV MCH MCHC RDW Plt Count MPV Neut % (Auto) Lymph % (Auto) [place] % (Auto) Eos % (Auto) Baso % (Auto) Neut # (Auto) Lymph # (Auto) [place] # (Auto) Eos # (Auto) Baso # (Auto) Sodium Potassium Chloride Carbon Dioxide Anion Gap BUN Creatinine Est GFR ( Amer) Est GFR (Non-Af Amer) POC Glucose (mg/dL) 101 Random Glucose Calcium Phosphorus Magnesium Total Bilirubin AST ALT Alkaline Phosphatase Total Protein Albumin Globulin Albumin/Globulin Ratio ALIA Screen ALIA Titer ALIA Pattern Radiology Impressions: Radiology Impressions Brain MRI 05/25/18 16:35 IMPRESSION: 1. Subacute left MCA territory infarction involving the posterior frontal and anterior parietal lobes with mild surrounding moderate vasogenic edema with hemorrhagic transformation. 2. Subacute left MCA territory infarction involving the left posterior parietal lobe. 3. Mild chronic microangiopathic changes and mild age-related global parenchymal volume loss. 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 Critical Care Progress Note - Nutrition Nutrition: Nutrition Category Date Time Status Heart Healthy Diet [DIET] Diets 05/22/18 Lunch Active Attending/Attestation - Attestation I have personally seen and examined this patient.: Yes I have fully participated in the care of the patient.: Yes I have reviewed all pertinent clinical information: Yes Notes (Text): 05/25/18 18:02 Patient seen and examined in the intensive care unit. Case discussed with housestaff in the morning rounds. MRI of the head noted Possible transfer to floor tomorrow Continue present treatment for now Control blood pressure <Tobin Weldon - Last Filed: 05/25/18 20:06> CCU Subjective - Physician Review Subjective (Free Text): PGY-1 ICU progress note for Dr Dickey service Patient is seen and examined at bedside. Family at bedside, no acute changes or new events overnight, patient has no complaints at this time. Denies any other symptoms at this time. CCU Objective - Vital Signs / Intake & Output Vital Signs (Last 4 hours): Vital Signs Pulse Resp BP Pulse Ox 05/25/18 17:00 111 H 32 H 73 L 05/25/18 16:59 118 H 33 H 144/95 H 05/25/18 16:30 86 21 05/25/18 16:00 91 H 25 H 05/25/18 15:58 87 25 H 170/63 H 05/25/18 15:30 86 24 100 05/25/18 15:29 102 H 174/64 H 05/25/18 14:06 92 H 27 H 156/54 H 98 05/25/18 14:05 94 H 30 H 99 05/25/18 14:00 98 H 21 Intake and Output (Last 8hrs): Intake & Output 05/25/18 05/25/18 05/25/18 06:59 14:59 22:59 Intake Total 50 660 Output Total 350 300 Balance -300 360 Weight 117 lb Intake: Oral 50 660 Output: Urine 350 300 Urine, Voided 350 300 Other: # Voids Urine, Voided 1 1 - Physical Exam Head: Positive for: Atraumatic, Normocephalic Pupils: Positive for: PERRL Extroacular Muscles: Positive for: EOMI Conjunctiva: Positive for: Normal Mouth: Positive for: Moist Mucous Membranes Neck: Positive for: Normal Range of Motion Respiratory/Chest: Positive for: Clear to Auscultation Cardiovascular: Positive for: Regular Rate and Rhythm, Murmurs, Normal S1, S2 Abdomen: Positive for: Normal Bowel Sounds. Negative for: Tenderness, Distention Upper Extremity: Positive for: Normal Inspection. Negative for: Edema Lower Extremity: Positive for: Normal Inspection. Negative for: Edema Neurological: Positive for: CN II-XII Intact, Speech Normal, Motor Func Grossly Intact, Normal Cerebellar Funct, Memory Normal Skin: Positive for: Warm, Normal Color Psychiatric: Positive for: Alert, Oriented x 3, Normal Insight, Normal Concentration - Medications Active Medications: Active Medications Generic Name Dose Route Start Last Admin Trade Name Freq PRN Reason Stop Dose Admin Famotidine 20 mg 05/24/18 20:15 05/25/18 17:23 Pepcid PO 20 mg BID BEATRIZ Administration Rosuvastatin Calcium 5 mg 05/23/18 22:00 05/24/18 21:17 Crestor PO 5 mg HS BEATRIZ Administration - Patient Studies Lab Studies: Lab Studies 05/25/18 05/25/18 05/25/18 Range/Units 16:15 11:45 07:18 WBC (4.8-10.8) K/uL RBC (3.80-5.20) Mil/uL Hgb (11.0-16.0) g/dL Hct (34.0-47.0) % MCV (81.0-99.0) fL MCH (27.0-31.0) pg MCHC (33.0-37.0) g/dL RDW (11.5-14.5) % Plt Count (130-400) K/uL MPV (7.2-11.7) fL Neut % (Auto) (50.0-75.0) % Lymph % (Auto) (20.0-40.0) % [place] % (Auto) (0.0-10.0) % Eos % (Auto) (0.0-4.0) % Baso % (Auto) (0.0-2.0) % Neut # (Auto) (1.8-7.0) K/uL Lymph # (Auto) (1.0-4.3) K/uL [place] # (Auto) (0.0-0.8) K/uL Eos # (Auto) (0.0-0.7) K/uL Baso # (Auto) (0.0-0.2) K/uL Sodium (132-148) mmol/L Potassium (3.6-5.2) mmol/L Chloride (98-107) mmol/L Carbon Dioxide (22-30) mmol/L Anion Gap (10-20) BUN (7-17) mg/dL Creatinine (0.7-1.2) mg/dL Est GFR ( Amer) Est GFR (Non-Af Amer) POC Glucose (mg/dL) 101 144 H 98 (65-110) mg/dL Random Glucose (65-105) mg/dL Calcium (8.6-10.4) mg/dl Phosphorus (2.5-4.5) mg/dL Magnesium (1.6-2.3) mg/dL Total Bilirubin (0.2-1.3) mg/dL AST (14-36) U/L ALT (9-52) U/L Alkaline Phosphatase (38-126) U/L Total Protein (6.3-8.3) g/dL Albumin (3.5-5.0) g/dL Globulin (2.2-3.9) gm/dL Albumin/Globulin Ratio (1.0-2.1) ALIA Screen (Negative) ALIA Titer (<1:40) Titer ALIA Pattern 05/25/18 05/25/18 05/24/18 Range/Units 06:19 06:19 21:22 WBC 8.6 (4.8-10.8) K/uL RBC 4.58 (3.80-5.20) Mil/uL Hgb 11.9 (11.0-16.0) g/dL Hct 36.9 (34.0-47.0) % MCV 80.6 L (81.0-99.0) fL MCH 26.1 L (27.0-31.0) pg MCHC 32.3 L (33.0-37.0) g/dL RDW 14.4 (11.5-14.5) % Plt Count 220 (130-400) K/uL MPV 7.9 (7.2-11.7) fL Neut % (Auto) 69.9 (50.0-75.0) % Lymph % (Auto) 19.3 L (20.0-40.0) % [place] % (Auto) 7.0 (0.0-10.0) % Eos % (Auto) 3.2 (0.0-4.0) % Baso % (Auto) 0.6 (0.0-2.0) % Neut # (Auto) 6.0 (1.8-7.0) K/uL Lymph # (Auto) 1.7 (1.0-4.3) K/uL [place] # (Auto) 0.6 (0.0-0.8) K/uL Eos # (Auto) 0.3 (0.0-0.7) K/uL Baso # (Auto) 0.1 (0.0-0.2) K/uL Sodium 139 (132-148) mmol/L Potassium 3.9 (3.6-5.2) mmol/L Chloride 105 (98-107) mmol/L Carbon Dioxide 26 (22-30) mmol/L Anion Gap 12 (10-20) BUN 13 (7-17) mg/dL Creatinine 0.8 (0.7-1.2) mg/dL Est GFR ( Amer) > 60 Est GFR (Non-Af Amer) > 60 POC Glucose (mg/dL) 160 H (65-110) mg/dL Random Glucose 96 (65-105) mg/dL Calcium 9.1 (8.6-10.4) mg/dl Phosphorus 4.4 (2.5-4.5) mg/dL Magnesium 2.0 (1.6-2.3) mg/dL Total Bilirubin 0.6 (0.2-1.3) mg/dL AST 26 (14-36) U/L ALT 11 (9-52) U/L Alkaline Phosphatase 79 (38-126) U/L Total Protein 6.4 (6.3-8.3) g/dL Albumin 3.9 (3.5-5.0) g/dL Globulin 2.5 (2.2-3.9) gm/dL Albumin/Globulin Ratio 1.5 (1.0-2.1) ALIA Screen (Negative) ALIA Titer (<1:40) Titer ALIA Pattern 05/23/18 Range/Units 02:38 WBC (4.8-10.8) K/uL RBC (3.80-5.20) Mil/uL Hgb (11.0-16.0) g/dL Hct (34.0-47.0) % MCV (81.0-99.0) fL MCH (27.0-31.0) pg MCHC (33.0-37.0) g/dL RDW (11.5-14.5) % Plt Count (130-400) K/uL MPV (7.2-11.7) fL Neut % (Auto) (50.0-75.0) % Lymph % (Auto) (20.0-40.0) % [place] % (Auto) (0.0-10.0) % Eos % (Auto) (0.0-4.0) % Baso % (Auto) (0.0-2.0) % Neut # (Auto) (1.8-7.0) K/uL Lymph # (Auto) (1.0-4.3) K/uL [place] # (Auto) (0.0-0.8) K/uL Eos # (Auto) (0.0-0.7) K/uL Baso # (Auto) (0.0-0.2) K/uL Sodium (132-148) mmol/L Potassium (3.6-5.2) mmol/L Chloride (98-107) mmol/L Carbon Dioxide (22-30) mmol/L Anion Gap (10-20) BUN (7-17) mg/dL Creatinine (0.7-1.2) mg/dL Est GFR ( Amer) Est GFR (Non-Af Amer) POC Glucose (mg/dL) (65-110) mg/dL Random Glucose (65-105) mg/dL Calcium (8.6-10.4) mg/dl Phosphorus (2.5-4.5) mg/dL Magnesium (1.6-2.3) mg/dL Total Bilirubin (0.2-1.3) mg/dL AST (14-36) U/L ALT (9-52) U/L Alkaline Phosphatase (38-126) U/L Total Protein (6.3-8.3) g/dL Albumin (3.5-5.0) g/dL Globulin (2.2-3.9) gm/dL Albumin/Globulin Ratio (1.0-2.1) ALIA Screen Positive H (Negative) ALIA Titer 1:80 H (<1:40) Titer ALIA Pattern Homogeneous H Laboratory Results - last 24 hr 05/23/18 05/24/18 05/25/18 02:38 21:22 06:19 WBC 8.6 RBC 4.58 Hgb 11.9 Hct 36.9 MCV 80.6 L MCH 26.1 L MCHC 32.3 L RDW 14.4 Plt Count 220 MPV 7.9 Neut % (Auto) 69.9 Lymph % (Auto) 19.3 L [place] % (Auto) 7.0 Eos % (Auto) 3.2 Baso % (Auto) 0.6 Neut # (Auto) 6.0 Lymph # (Auto) 1.7 [place] # (Auto) 0.6 Eos # (Auto) 0.3 Baso # (Auto) 0.1 Sodium Potassium Chloride Carbon Dioxide Anion Gap BUN Creatinine Est GFR ( Amer) Est GFR (Non-Af Amer) POC Glucose (mg/dL) 160 H Random Glucose Calcium Phosphorus Magnesium Total Bilirubin AST ALT Alkaline Phosphatase Total Protein Albumin Globulin Albumin/Globulin Ratio ALIA Screen Positive H ALIA Titer 1:80 H ALIA Pattern Homogeneous H 05/25/18 05/25/18 05/25/18 06:19 07:18 11:45 WBC RBC Hgb Hct MCV MCH MCHC RDW Plt Count MPV Neut % (Auto) Lymph % (Auto) [place] % (Auto) Eos % (Auto) Baso % (Auto) Neut # (Auto) Lymph # (Auto) [place] # (Auto) Eos # (Auto) Baso # (Auto) Sodium 139 Potassium 3.9 Chloride 105 Carbon Dioxide 26 Anion Gap 12 BUN 13 Creatinine 0.8 Est GFR ( Amer) > 60 Est GFR (Non-Af Amer) > 60 POC Glucose (mg/dL) 98 144 H Random Glucose 96 Calcium 9.1 Phosphorus 4.4 Magnesium 2.0 Total Bilirubin 0.6 AST 26 ALT 11 Alkaline Phosphatase 79 Total Protein 6.4 Albumin 3.9 Globulin 2.5 Albumin/Globulin Ratio 1.5 ALIA Screen ALIA Titer ALIA Pattern 05/25/18 16:15 WBC RBC Hgb Hct MCV MCH MCHC RDW Plt Count MPV Neut % (Auto) Lymph % (Auto) [place] % (Auto) Eos % (Auto) Baso % (Auto) Neut # (Auto) Lymph # (Auto) [place] # (Auto) Eos # (Auto) Baso # (Auto) Sodium Potassium Chloride Carbon Dioxide Anion Gap BUN Creatinine Est GFR ( Amer) Est GFR (Non-Af Amer) POC Glucose (mg/dL) 101 Random Glucose Calcium Phosphorus Magnesium Total Bilirubin AST ALT Alkaline Phosphatase Total Protein Albumin Globulin Albumin/Globulin Ratio ALIA Screen ALIA Titer ALIA Pattern Radiology Impressions: Radiology Impressions Brain MRI 05/25/18 16:35 IMPRESSION: 1. Subacute left MCA territory infarction involving the posterior frontal and anterior parietal lobes with mild surrounding moderate vasogenic edema with hemorrhagic transformation. 2. Subacute left MCA territory infarction involving the left posterior parietal lobe. 3. Mild chronic microangiopathic changes and mild age-related global parenchymal volume loss. 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 Fingerstick Blood Sugar Results: 144 Critical Care Progress Note - Nutrition Nutrition: Nutrition Category Date Time Status Heart Healthy Diet [DIET] Diets 05/22/18 Lunch Active Assessment/Plan - Assessment and Plan (Free Text) Plan: 57 year old female with past med history of hypertension, arthritis came to ED for right-sided hand weakness. Received tpa 2:34 pm on 05/22. CTA negative for intracerebral occlusion, some external carotid stenosis. repeat CT 2/ showing possible embolic type ischemic infarct, patient reporting improving symptoms, MRI showsing subacute infarctions with hemorrhagic transformation Neuro AAOx3 improved right hand and right leg weakness and numbness CT head - no bleed CTA head neck- High-grade stenosis proximal right common carotid artery with right CC otherwise widely patent repeat CT / -cytotoxic edema is small sub segments of left frontal and parietal lobes suggests embolic type ischemic infarcts, difficult to exclude petechial hermoohrage, no gross intracranial hemorrhage appreciable. received TPA 05/22 MRI head w/o contrast- Subacute left MCA territory infarction involving the posterior frontal and anterior parietal lobes with mild surrounding moderate vasogenic edema with hemorrhagic transformation. Subacute left MCA territory infarction involving the left posterior parietal lobe. Mild chronic microangiopathic changes and mild age-related global parenchymal volume loss. 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 Carotid doppler - f/u official report will d/c ASA as per Dr Wilder Hdz - Neuro - f/u recs neuro Q4H Pulm: no acute issues cont to monitor O2 Sat CV: EKG - repeat to rule out afib - Normal sinus rhythm troponin negative x 4 BNP - 408 Echo - left ventricle with concentric thickening, EF estimated at 65%, diastolic filling pressures are elevated, bubble study showed NO suggestion of a shunt elevated bp this morning - given one dose labetalol 10 mg IVP normotensive in the afternoon continue to monitor bp Jody PUGH Dr - cardio consult - f/u recs Renal no electrolyte abnormalities no renal function Endo no acute issues GI: HHD Pepcid ID: no issues PPX DVT: c/i due to possible acute bleed, SCDS GI: pepcid Dispo: possible transfer to floor tomorrow, continue treatment and blood pressure control Plan discussed with Dr Noble Weldon, PGY-1 - Date & Time Date: 05/25/18 Time: 09:30
--- NOTE | 2018-05-25 18:49 | CP.PCM.PN ---
Subjective - Date & Time of Evaluation Date of Evaluation: 05/25/18 Time of Evaluation: 18:45 - Subjective Subjective: Hospitalist Progress Note Patient was seen and examined at 6:45M ICU Bed 5 05/25/18 with at bedside 57 year old female (PMHx HTN, RA) who presented to [facility] ER on 05/22/18 with complaints of Right Upper Extremity and Right Lower Extremity numbness/weakness that began at 12: 30 PM on 05/22/18. Code Stroke was called and she was given TPA at 2:30 PM 05/22/18 with improvement in symptoms by 3:30 PM. She was admitted to the ICU for further treatment and evaluation. Please see Assessment and Plans below for further details. Upon FULL ROS in caroline: NO chest pain NO SOB Dry cough NO abdominal pain NO n/v/d: last bowel movement this morning 05/25/18 Numbness/tingling in the Right UE and Right LE has resolved and has not returned NO burning and pain with urination NO other complaints General: AAOx3, NAD HEENT: NCA, EOMI, PERRLA, NO pharyngeal erythema/exudate, NO thyromegaly, Nasal Turbinates are nonerythematous/nonedematous, NO lymphadenopathy Cardio: NS1 and NS2, NO M/R/G Resp: CTA B/L, NO M/R/G GI: BSx4, Soft, NT, ND, NO HSM, NO guarding/rebound tenderness Ext: NO edema, Pulses are strong and equal, Capillary Refill is 2 seconds, Normal color and temperature Neuro: CN II through XII are grossly intact, Babinski is normal, Rhomberg is normal, 5/5 strength with flexion and extension bilateral UE and LE against resistance, NO loss of sensation HOLDING anticoagulation (ASA and Plavix) in light of findings on MRI Brain (please see Assessment and Plan #1). Start if cleared to start by Neurology See Assessment and Plans below for summary of care 1. Ischemic stroke Assessment/Plan * Neurology (Dr. Up/Wilder) on consult-->help appreciated * Neurology (Not "no") informed by ED. Patient received TPA approximately 2:30 PM on 05/22/18. Neurochecks per code stroke protocol for TPA protocol. * Patient admitted to the intensive care unit * Neurology on board. Will need to hold aspirin for at least 24hours since initiation of TPA earliest would be approximately 230pm on May 23. Will need to follow-up blood pressure guidelines status post TPA * Pending A1c * Lipid panel completed in the emergency room * CT Head 05/22/18: noted for bilateral caudate head lacunes identified. Examina tion otherwise unremarkable. CAT scan for performed prior to TPA. * CT Head/Neck 05/22/18: No large vessel occlusion in the brain. Limited bilateral cavernous ICA atherosclerotic changes without significant stenosis. High-grade stenosis proximal right common carotid artery with right CC otherwise widely patent. Widely patent left CC throughout. Incidental high- grade stenosis of the origin of the left subclavian artery. * CT Head 05/23/18: noted for cytotoxic edema is not identified in the small s ubsegments of the left frontal and parietal lobes by normal- appearing parenchyma therefore suggested an embolic type of ischemic infarcts trace petechial hemorrhage is difficult to exclude from normal density parenchymal in the central left frontal infarct no gross intracranial hemorrhage appreciable. * MRI Brain . Subacute left MCA territory infarction involving the posterior frontal and anterior parietal lobes with mild surrounding moderate vasogenic edema with hemorrhagic transformation. 2. Subacute left MCA territory infarction involving the left posterior parietal lobe. 3. Mild chronic microangiopathic changes and mild age-related global parenchymal volume loss. 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.: 2. History of hypertension Assessment/Plan * Hold patient's blood pressure medications * Abide by blood pressure protocol status post TPA for at least 24 hours per neuro * F/u neurology when to restart anti-hypertensives after 24 hours of TPA (after 2:30pm 05/23/18) * As outpatient patient takes Metoprolol/Clindapine * Family counselled at bedside to limit 's smoking/limit second hand smoke exposure 3. Abnormal EKG Assessment/Plan * Patient has flipped T waves on initial EKG ischemia likely secondary to stroke cardiac risk including hypertension. Patient does not report any cardiac pain no shortness of breath no associated palpitations prior to event this morning. * Echocardiogram 05/25/18: left ventricle with concentric thickening, EF estimated at 65%, diastolic filling pressures are elevated, bubble study showed NO suggestion of a shunt. Please see full report 4. History of arthritis likely rheumatoid Assessment/Plan * Patient is outpatient takes prednisone and hydroxychloroquine. We will hold. Check ESR CRP ALIA with reflex anti-CCP. Patient no noted visual defects that would be attributed to hydroxychloroquine and no visual defects secondary to stroke. 5. Cartoid Stenosis Assessment/Plan * Noted on CT head and neck * F/U Carotid Duplex report * Appreciated recommendation by vascular surgery eval * Discussed with neurology likely anatomic variant per review; patient's symptoms likely not attributed to it 6. Second Hand Smoke Exposure Assessment/Plan * Patient's is a smoker; counselled to stop smoking to limit second hand smoke to other family members 6. Prophylactic measure Assessment/Plan * Pepcid 20 mg IV every 12 for GI prophylaxis * TPA per neuro guideline * Neurocheck per protocol s/p tpa * SCDs * PT OT eval * Swallow eval Chino Abraham D.O. Objective - Vital Signs/Intake and Output Vital Signs (last 24 hours): Temp Pulse Resp BP Pulse Ox 98.4 F 103 H 17 146/61 100 05/25/18 16:00 05/25/18 18:00 05/25/18 18:00 05/25/18 17:58 05/25/18 18:00 Intake and Output: 05/25/18 05/25/18 06:59 18:59 Intake Total 250 1020 Output Total 600 750 Balance -350 270 - Medications Medications: Current Medications Famotidine (Pepcid) 20 mg PO BID [facility] Last Admin: 05/25/18 17:23 Dose: 20 mg Rosuvastatin Calcium (Crestor) 5 mg PO [facility] Last Admin: 05/24/18 21:17 Dose: 5 mg - Labs Labs: 05/25/18 06:19 05/25/18 06:19 PT 10.9 SECONDS (9.7-12.2) 05/22/18 14:03 INR 1.0 05/22/18 14:03 APTT 37 SECONDS (21-34) H 05/22/18 14:03
[2018-05-26 06:15] LABS: BASO % 0.6 % (0.0-2.0); EOS # 0.3 K/uL (0.0-0.7); HEMOGLOBIN 11.9 g/dL (11.0-16.0); LYMPH # 1.2 K/uL (1.0-4.3); LYMPH % 15.2 % (20.0-40.0); MEAN CELL VOLUME 80.8 fL (81.0-99.0); MEAN CORPUSCULAR HEMOGLOBIN 26.6 pg (27.0-31.0); MEAN PLATELET VOLUME 7.8 fL (7.2-11.7); MONO # 0.5 K/uL (0.0-0.8); MONO % 6.2 % (0.0-10.0); NEUT # 5.9 K/uL (1.8-7.0); NRBC % 0.1 % (0.0-2.0); RBC 4.46 Mil/uL (3.80-5.20); RED CELL DISTRIBUTION WIDTH 14.1 % (11.5-14.5); WHITE BLOOD COUNT 7.9 K/uL (4.8-10.8)
[2018-05-26 06:29] LABS: ALB/GLOB RATIO 1.4 (1.0-2.1); ALBUMIN 3.8 g/dL (3.5-5.0); ALT/SGPT 15 U/L (9-52); AST/SGOT 30 U/L (14-36); BLOOD UREA NITROGEN 12 mg/dL (7-17); GFR NON-AFRICAN AMERICAN > 60
--- NOTE | 2018-05-26 09:25 | CP.PCM.PN ---
Subjective - Date & Time of Evaluation Date of Evaluation: 05/26/18 Time of Evaluation: 09:26 - Subjective Subjective: PGY-[address] Hdz Patient seen and examined at bedside. No acute events overnight. Right-sided weakness continues to improve. Physical therapy working with patient - noting continued progress. Patient denies blurry vision, changes in hearing, dizziness, n/v/d/c, chest pain, shortness of breath, headache. Objective - Vital Signs/Intake and Output Vital Signs (last 24 hours): Temp Pulse Resp BP Pulse Ox 98.5 F 114 H 22 167/99 H 96 05/26/18 08:00 05/26/18 09:00 05/26/18 09:00 05/26/18 08:58 05/26/18 09:00 Intake and Output: 05/26/18 05/26/18 06:59 18:59 Intake Total 200 360 Output Total 650 0 Balance -450 360 - Medications Medications: Current Medications Famotidine (Pepcid) 20 mg PO BID [facility] BEDS AT [facility] Last Admin: 05/25/18 17:23 Dose: 20 mg Rosuvastatin Calcium (Crestor) 5 mg PO HS COUNTS [facility]CLUDE 234 BEDS AT THE [facility] Last Admin: 05/25/18 21:18 Dose: 5 mg - Labs Labs: 05/26/18 06:08 05/26/18 06:07 PT 10.9 SECONDS (9.7-12.2) 05/22/18 14:03 INR 1.0 05/22/18 14:03 APTT 37 SECONDS (21-34) H 05/22/18 14:03 - Constitutional Appears: Non-toxic, No Acute Distress - Head Exam Head Exam: ATRAUMATIC, NORMOCEPHALIC - Eye Exam Eye Exam: EOMI - ENT Exam ENT Exam: Mucous Membranes Moist - Respiratory Exam Respiratory Exam: Clear to Ausculation Bilateral, NORMAL BREATHING PATTERN. absent: Rhonchi, Wheezes - Cardiovascular Exam Cardiovascular Exam: REGULAR RHYTHM, +S1, +S2 - GI/Abdominal Exam GI & Abdominal Exam: Soft, Normal Bowel Sounds. absent: Tenderness - Extremities Exam Extremities Exam: absent: Pedal Edema, Tenderness - Neurological Exam Neurological Exam: Alert, Awake, CN II-XII Intact, Oriented x3 Neuro motor strength exam: Left Upper Extremity: 5, Right Upper Extremity: 5, Left Lower Extremity: 5, Right Lower Extremity: 5 Additional comments: R pronator drift - Psychiatric Exam Psychiatric exam: Normal Affect, Normal Mood - Skin Skin Exam: Dry, Intact Assessment and Plan - Assessment and Plan (Free Text) Assessment: 57 year old female with hitstory of HTN, RA who presents for right sided numbness and weakness, TPA administered on admission 05/22/18. MRI brain confirmed L MCA infarctions involving posterior frontal, anterior and posterior parietal regions, with hemorrhagic transformation. Patient also found to have high-grade stenosis of the proximal right common carotid on CTA. Plan: Acute Left MCA infarction Imaging -05/22 CT head noted for bilateral caudate head lacunes identified. Examination otherwise unremarkable. CAT scan for performed prior to TPA. -05/[address] head noted for cytotoxic edema is not identified in the small subsegments of the left frontal and parietal lobes by normal-appearing parenchyma therefore suggested an embolic type of ischemic infarcts trace petechial hemorrhage is difficult to exclude from normal density parenchymal in the central left frontal infarct no gross intracranial hemorrhage appreciable. -05/25 MRI brain: 1. Subacute left MCA territory infarction involving the pos terior frontal and anterior parietal lobes with mild surrounding moderate vasogenic edema with hemorrhagic transformation. 2. Subacute left MCA territory infarction involving the left posterior parietal lobe. 3. Mild chronic microangiopathic changes and mild age-related global parenchymal volume loss. 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 Patient received TPA 05/22/18 -ASA held 2 findings of hemorrhagic conversion on MRI --> Okay to restart ASA tomorrow -NIH 1 -Coagulopathy studies: Homocysteine, Protein C, S, Antithrombin 3, prothrombin gene 3 mutation, factor 5 leiden - f/u --Homocysteine WNL -ALIA positive --Lupus anticoagulant, Antiphospholipid AB - f/u -Continue PT/OT Carotid Artery Stenosis Imaging -05/22 CT head/neck: No large vessel occlusion in the brain. Limited bilateral cavernous ICA atherosclerotic changes without significant stenosis. High-grade stenosis proximal right common carotid artery with right CC otherwise widely patent. Widely patent left CC throughout. Incidental high-grade stenosis of the origin of the left subclavian artery -Medical management as above Positive ALIA -Lupus anticoagulant, Antiphospholipid AB - f/u -Discussed with patient need for outpatient Rheum f/u Assessment and plan discussed with with Dr. Wilder Begum, PGY1
--- NOTE | 2018-05-26 14:34 | CARD ---
APPROVED REPORT Date of service: 05/24/2018 EKG Measurement Heart [id number] <Conclusion> Normal sinus rhythm Left ventricular hypertrophy with repolarization abnormality Abnormal ECG
--- NOTE | 2018-05-26 14:40 | VASCLAB ---
Date of service: 05/25/2018 PROCEDURE: Bruit HISTORY: carotid stenosis COMPARISON: None available. TECHNIQUE: Grayscale and duplex Doppler evaluation of the cervical carotid and vertebral arteries were performed. The common carotid, carotid bifurcations and cervical Internal Carotid Artery (ICA) and proximal External Carotid Artery (ECA) were evaluated. The vertebral arteries were evaluated for gross patency and flow direction. Report prepared by MICHAEL Elizabeth FINDINGS: RIGHT CAROTID ARTERIES: 1. Common Carotid Artery: No significant focal plaque formation of the right common carotid artery. Maximum Peak Systolic velocity: 61 cm/sec: End-diastolic velocity 16 cm/sec. 2. Carotid Bifurcation: plaque formation. Maximum Peak Systolic velocity: 66 cm/sec: End-diastolic velocity 11 cm/sec. 3. Internal Carotid Artery: Plaque description: 3.1. Proximal Segment: Peak systolic velocity 60 cm/sec: End-diastolic velocity 20 cm/sec - % stenosis 0-15% 3.2. Middle Segment: Peak systolic velocity 108 cm/sec: End-diastolic velocity 33 cm/sec - % stenosis 0-15% 3.3. Distal Segment: Peak systolic velocity 111 cm/sec: End-diastolic velocity 24 cm/sec - % stenosis 0-15% 4. External Carotid Artery: No significant focal plaque formation. Peak systolic velocity 90 cm/sec 5. ICA/CCA Ratio: 1.8 LEFT CAROTID ARTERIES: 1. Common Carotid Artery: No significant focal plaque formation of the left common carotid artery. Maximum Peak Systolic velocity: 94 cm/sec: End-diastolic velocity 9 cm/sec. 2. Carotid Bifurcation: plaque formation. Maximum Peak Systolic velocity: 84 cm/sec: End-diastolic velocity 0 cm/sec. 3. Internal Carotid Artery: Plaque description: 3.1. Proximal Segment: Peak systolic velocity 102 cm/sec: End-diastolic velocity 17 cm/sec - % stenosis 0-15% 3.2. Middle Segment: Peak systolic velocity 104 cm/sec: End-diastolic velocity 27 cm/sec - % stenosis 0-15% 3.3. Distal Segment: Peak systolic velocity 100 cm/sec: End-diastolic velocity 27 cm/sec - % stenosis 0-15% 4. External Carotid Artery: No significant focal plaque formation. Peak systolic velocity 111 cm/sec 5. ICA/CCA Ratio: 1.1 VERTEBRAL ARTERIES: 1. Right Vertebral Artery: The right vertebral artery flow direction is antegrade. 2. Left Vertebral Artery: The left vertebral artery flow direction is antegrade. OTHER FINDINGS: 1. Right Brachial Blood pressure: mmHg. 2. Left Brachial Blood pressure: mmHg. 3. No atherosclerotic calcification present IMPRESSION: RIGHT: Duplex scan does not suggest hemodynamically significant stenosis of the right extracranial carotid arteries. LEFT: Duplex scan does not suggest hemodynamically significant stenosis of the left extracranial carotid arteries.
--- NOTE | 2018-05-26 15:15 | CP.PCM.PN ---
Subjective - Date & Time of Evaluation Date of Evaluation: 05/26/18 Time of Evaluation: 15:15 - Subjective Subjective: Dr. Bhandari Service Patient seen and examined at bedside. Per nursing no acute events occurred overnight. Patient denies any chest pain, shortness of breath, fevers, chills, headaches, syncopal episodes, extremity weakness, or any other complaints. Objective - Vital Signs/Intake and Output Vital Signs (last 24 hours): Temp Pulse Resp BP Pulse Ox 98.1 F 116 H 19 100/61 100 05/26/18 12:00 05/26/18 15:00 05/26/18 15:00 05/26/18 14:58 05/26/18 15:00 Intake and Output: 05/26/18 05/26/18 06:59 18:59 Intake Total 200 720 Output Total 650 500 Balance -450 220 - Medications Medications: Current Medications Famotidine (Pepcid) 20 mg PO BID [facility] Last Admin: 05/26/18 09:34 Dose: 20 mg Hydralazine HCl (Apresoline) 25 mg PO TID [facility] Last Admin: 05/26/18 13:21 Dose: 25 mg Hydrochlorothiazide (Microzide) 12.5 mg PO DAILY [facility] Last Admin: 05/26/18 13:21 Dose: 12.5 mg Rosuvastatin Calcium (Crestor) 5 mg PO HS [facility] Last Admin: 05/25/18 21:18 Dose: 5 mg - Labs Labs: 05/26/18 06:08 05/26/18 06:07 PT 10.9 SECONDS (9.7-12.2) 05/22/18 14:03 INR 1.0 05/22/18 14:03 APTT 37 SECONDS (21-34) H 05/22/18 14:03 - Head Exam Head Exam: ATRAUMATIC, NORMAL INSPECTION - Eye Exam Eye Exam: EOMI, Normal appearance, PERRL Pupil Exam: NORMAL ACCOMODATION, PERRL. absent: Irregular, Unequal - ENT Exam ENT Exam: Mucous Membranes Moist, Normal Oropharynx - Respiratory Exam Respiratory Exam: Clear to Ausculation Bilateral, NORMAL BREATHING PATTERN. absent: Prolonged Expiratory Phase, Respiratory Distress - Cardiovascular Exam Cardiovascular Exam: REGULAR RHYTHM, +S1, +S2 - GI/Abdominal Exam GI & Abdominal Exam: Soft, Normal Bowel Sounds. absent: Rigid, Hyperactive Bowel Sounds - Neurological Exam Neurological Exam: Alert, Awake, CN II-XII Intact, Oriented x3 - Psychiatric Exam Psychiatric exam: Normal Affect, Normal Mood - Skin Skin Exam: Dry, Intact Assessment and Plan - Assessment and Plan (Free Text) Assessment: 57 year old female with a past medical history of hypertension and rheumatoid arthritis admitted for cva. Plan: 1.CVA CT head: -noted for bilateral quality health had chronic lacunae identified. Examination otherwise unremarkable. CT head/neck neck: -No large vessel occlusion in the brain. Limited bilateral cavernous ICA athero sclerotic changes without significant stenosis. High-grade stenosis proximal right common carotid artery with right CC otherwise widely patent. Widely patent left CC throughout. Incidental high-grade stenosis of the origin of the left subclavian artery. MRI: -1. Subacute left MCA territory infarction involving the posterior frontal and anterior parietal lobes with mild surrounding moderate vasogenic edema with hemorrhagic transformation. 2. Subacute left MCA territory infarction involving the left posterior parietal lobe. 3. Mild chronic microangiopathic changes and mild age-related global parenchymal volume loss. 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 Echo:(Preliminary Read) -LVH, no masses appreciated -small pericardial effusion, mild to moderate aortic insufficiency, negative for shunts BNP: 408 Troponin (-)x4 Neurology consulted. help appreciated. Awaiting hypercoagulable workup and Brain MRI results. Will continue to follow. Medications: tPA given in the Emergency Room Crestor 5mg PO HS BEATRIZ ASA 81mg PO Daily ppx -Pepcid 20mg IVP Q12 BEATRIZ Plan discussed with Dr. Bhandari. Mckay Lundberg, PGY-2
--- NOTE | 2018-05-26 19:15 | CP.PCM.PN ---
Subjective - Date & Time of Evaluation Date of Evaluation: 05/26/18 Time of Evaluation: 18:30 - Subjective Subjective: Hospitalist Progress Note Patient was seen and examined at 6:45 PM ICU Bed 5 05/26/18 with at bedside 57 year old female (PMHx HTN, RA) who presented to [facility] ER on 05/22/18 with complaints of Right Upper Extremity and Right Lower Extremity numbness/weakness that began at 12: 30 PM on 05/22/18. Code Stroke was called and she was given TPA at 2:30 PM 05/22/18 with improvement in symptoms by 3:30 PM. She was admitted to the ICU for further treatment and evaluation. Please see Assessment and Plans below for further details. Upon FULL ROS in [place]: NO chest pain NO SOB Dry cough NO abdominal pain NO n/v/d: last bowel movement this morning 05/26/18 Numbness/tingling in the Right UE and Right LE has resolved and has not returned NO burning and pain with urination NO other complaints General: AAOx3, NAD HEENT: NCA, EOMI, PERRLA, NO pharyngeal erythema/exudate, NO thyromegaly, Nasal Turbinates are nonerythematous/nonedematous, NO lymphadenopathy Cardio: NS1 and NS2, NO M/R/G Resp: CTA B/L, NO M/R/G GI: BSx4, Soft, NT, ND, NO HSM, NO guarding/rebound tenderness Ext: NO edema, Pulses are strong and equal, Capillary Refill is 2 seconds, Normal color and temperature Neuro: CN II through XII are grossly intact, Babinski is normal, Rhomberg is normal, 5/5 strength with flexion and extension bilateral UE and LE against resistance, NO loss of sensation HOLDING anticoagulation (ASA and Plavix) in light of findings on MRI Brain (please see Assessment and Plan #1). Start if cleared to start by Neurology. Tentative plan for starting ASA on 05/27/18 ASA postive with Homogenous Pattern F/U Antiocariolipin Ab and Antiphospholipid Ab and Anti DS DNA Abs F/U Hypercoagulable Workup: Protein C, Protein S, Antithrombin III, Factor V Leiden, Prothrombin Gene Mutation Spoke with patient's daughter via phone at the request of patient and updated daughter. See Assessment and Plans below for summary of care 1. Ischemic stroke Assessment/Plan * Neurology (Dr. Up/Wilder) on consult-->help appreciated * Neurology (Not "no") informed by ED. Patient received TPA approximately 2:30 PM on 05/22/18. Neurochecks per code stroke protocol for TPA protocol. * Patient admitted to the intensive care unit * Neurology on board. Will need to hold aspirin for at least 24hours since initiation of TPA earliest would be approximately 230pm on May 23. Will need to follow-up blood pressure guidelines status post TPA * Pending A1c * Lipid panel completed in the emergency room * CT Head 05/22/18: noted for bilateral caudate head lacunes identified. Examination otherwise unremarkable. CAT scan for performed prior to TPA. * CT Head/Neck 05/22/18: No large vessel occlusion in the brain. Limited bilateral cavernous ICA atherosclerotic changes without significant stenosis. High-grade stenosis proximal right common carotid artery with right CC otherwise widely patent. Widely patent left CC throughout. Incidental high- grade stenosis of the origin of the left subclavian artery. * CT Head 05/23/18: noted for cytotoxic edema is not identified in the small subsegments of the left frontal and parietal lobes by normal- appearing parenchyma therefore suggested an embolic type of ischemic infarcts trace petechial hemorrhage is difficult to exclude from normal density parenchymal in the central left frontal infarct no gross intracranial hemorrhage appreciable. * MRI Brain . Subacute left MCA territory infarction involving the posterior frontal and anterior parietal lobes with mild surrounding moderate vasogenic edema with hemorrhagic transformation. 2. Subacute left MCA territory infarction involving the left posterior parietal lobe. 3. Mild chronic microangiopathic changes and mild age-related global parenchymal volume loss. Small old lacunar infarctions in the left cerebellar h emisphere.: 2. History of hypertension Assessment/Plan * Abided by blood pressure protocol status post TPA for at least 24 hours per neuro * Started HCTZ 12.5 mg PO 1x/day and Hydralazine 25 mg PO Q8H on 05/26/18 * Family counselled at bedside to limit 's smoking/limit second hand smoke exposure 3. Abnormal EKG Assessment/Plan * Patient has flipped T waves on initial EKG ischemia likely secondary to stroke cardiac risk including hypertension. Patient does not report any cardiac pain no shortness of breath no associated palpitations prior to event this morning. * Echocardiogram 05/25/18: left ventricle with concentric thickening, EF estimated at 65%, diastolic filling pressures are elevated, bubble study showed NO suggestion of a shunt. Please see full report 4. History of arthritis likely rheumatoid Assessment/Plan * Patient is outpatient takes prednisone and hydroxychloroquine. We will hold. Check ESR CRP ALIA with reflex anti-CCP. Patient no noted visual defects that would be attributed to hydroxychloroquine and no visual defects secondary to stroke. 5. Cartoid Stenosis Assessment/Plan * Noted on CT head and neck (please see Assessment and Plan #1) * Carotid Duplex: NO significant stenosis * Appreciated recommendation by vascular surgery eval * Discussed with neurology likely anatomic variant per review; patient's symptoms likely not attributed to it 6. Second Hand Smoke Exposure Assessment/Plan * Patient's is a smoker; counselled to stop smoking to limit second hand smoke to other family members 6. Prophylactic measure Assessment/Plan * Pepcid 20 mg IV every 12 for GI prophylaxis * TPA per neuro guideline * Neurocheck per protocol s/p tpa * SCDs * PT OT eval * Swallow eval Chino Abraham D.O. Objective - Vital Signs/Intake and Output Vital Signs (last 24 hours): Temp Pulse Resp BP Pulse Ox 99.2 F 119 H 26 H 114/82 95 05/26/18 16:00 05/26/18 18:00 05/26/18 18:00 05/26/18 17:58 05/26/18 18:00 Intake and Output: 05/26/18 05/27/18 18:59 06:59 Intake Total 840 Output Total 700 Balance 140 - Medications Medications: Current Medications Famotidine (Pepcid) 20 mg PO BID [facility] Last Admin: 05/26/18 17:03 Dose: 20 mg Hydralazine HCl (Apresoline) 25 mg PO Q8 [facility] Hydrochlorothiazide (Microzide) 12.5 mg PO DAILY [facility] Last Admin: 05/26/18 13:21 Dose: 12.5 mg Rosuvastatin Calcium (Crestor) 5 mg PO HS [facility] Last Admin: 05/25/18 21:18 Dose: 5 mg - Labs Labs: 05/26/18 06:08 05/26/18 06:07 PT 10.9 SECONDS (9.7-12.2) 05/22/18 14:03 INR 1.0 05/22/18 14:03 APTT 37 SECONDS (21-34) H 05/22/18 14:03
[2018-05-27 06:49] LABS: BASO # 0.1 K/uL (0.0-0.2); BASO % 0.7 % (0.0-2.0); EOS # 0.3 K/uL (0.0-0.7); EOS % 3.2 % (0.0-4.0); HEMOGLOBIN 11.7 g/dL (11.0-16.0); LYMPH # 1.1 K/uL (1.0-4.3); LYMPH % 12.9 % (20.0-40.0); MEAN CORPUSCULAR HEMOGLOBIN 26.5 pg (27.0-31.0); MEAN CORPUSCULAR HGB CONC 33.2 g/dL (33.0-37.0); MONO # 0.6 K/uL (0.0-0.8); MONO % 7.3 % (0.0-10.0); NEUT # 6.3 K/uL (1.8-7.0); NEUT % 75.9 % (50.0-75.0); RBC 4.42 Mil/uL (3.80-5.20); RED CELL DISTRIBUTION WIDTH 14.2 % (11.5-14.5); WHITE BLOOD COUNT 8.3 K/uL (4.8-10.8)
[2018-05-27 07:30] LABS: ALB/GLOB RATIO 1.6 (1.0-2.1); ALBUMIN 3.9 g/dL (3.5-5.0); ALT/SGPT 20 U/L (9-52); AST/SGOT 22 U/L (14-36); BLOOD UREA NITROGEN 12 mg/dL (7-17); CALCIUM 8.5 mg/dl (8.6-10.4); GFR NON-AFRICAN AMERICAN > 60
[2018-05-27] MEDS ORDERED: Potassium Chloride 20 mEq ER Tab PO ONE ×2 (09:00→11:05)
--- NOTE | 2018-05-27 12:58 | CP.PCM.PN ---
Subjective - Date & Time of Evaluation Date of Evaluation: 05/27/18 Time of Evaluation: 11:20 - Subjective Subjective: Neurology Progress Note for Dr. Hdz Patient seen and examined at bedside. She states that she has no numbness or weakness of her hands and legs. Her family states that she has been doing well without any issues walking. She complains of headache. She continues to receive physical therapy daily. She denies changes in vision, hearing, dizziness, nausea, vomiting, diarrhea, chest pain, shortness of breath. Objective - Vital Signs/Intake and Output Vital Signs (last 24 hours): Temp Pulse Resp BP Pulse Ox 98.7 F 113 H 20 135/72 95 05/27/18 07:30 05/27/18 07:30 05/27/18 07:30 05/27/18 07:30 05/27/18 07:30 Intake and Output: 05/27/18 05/27/18 06:59 18:59 Intake Total 120 Output Total 0 Balance 120 - Medications Medications: Current Medications Famotidine (Pepcid) 20 mg PO BID [facility] Last Admin: 05/27/18 10:19 Dose: 20 mg Hydralazine HCl (Apresoline) 25 mg PO Q8 [facility] Last Admin: 05/27/18 05:52 Dose: 25 mg Hydrochlorothiazide (Microzide) 12.5 mg PO DAILY [facility] Last Admin: 05/27/18 10:20 Dose: 12.5 mg Rosuvastatin Calcium (Crestor) 5 mg PO HS [facility] Last Admin: 05/26/18 21:47 Dose: 5 mg - Labs Labs: 05/27/18 06:36 05/27/18 06:36 PT 10.9 SECONDS (9.7-12.2) 05/22/18 14:03 INR 1.0 05/22/18 14:03 APTT 37 SECONDS (21-34) H 05/22/18 14:03 - Constitutional Appears: Non-toxic, No Acute Distress - Head Exam Head Exam: ATRAUMATIC, NORMOCEPHALIC - Eye Exam Eye Exam: EOMI, PERRL - ENT Exam ENT Exam: Mucous Membranes Moist - Respiratory Exam Respiratory Exam: NORMAL BREATHING PATTERN - Cardiovascular Exam Cardiovascular Exam: REGULAR RHYTHM, +S1, +S2 - GI/Abdominal Exam GI & Abdominal Exam: Soft, Normal Bowel Sounds. absent: Tenderness - Extremities Exam Extremities Exam: absent: Pedal Edema, Tenderness - Neurological Exam Neurological Exam: Alert, Awake, Oriented x3 Additional comments: Strength 4+ on right compared to left Paraphasic errors in speech No dysmetria noted Gait mildly unsteady - Skin Skin Exam: Dry, Intact, Warm Assessment and Plan - Assessment and Plan (Free Text) Assessment: 57 year old female with history of HTN, RA who presents for right sided numbness and weakness, TPA administered on admission 05/22/18. MRI brain confirmed L MCA infarctions involving posterior frontal, anterior and posterior parietal regions, with hemorrhagic transformation. Patient also found to have high-grade stenosis of the proximal right common carotid on CTA. Repeat CT revealed hemorrhage of 1.7 by 1.3cm related to left frontal lobe infarction with left parietal lobe infarction stable. Plan: Acute Left MCA infarction with hemorrhage Patient received TPA 05/22/18 -05/22 CT head noted for bilateral caudate head lacunes identified. Examination otherwise unremarkable. CAT scan for performed prior to TPA. -05/[address] head noted for cytotoxic edema is not identified in the small subsegments of the left frontal and parietal lobes by normal-appearing parenchyma therefore suggested an embolic type of ischemic infarcts trace petechial hemorrhage is difficult to exclude from normal density parenchymal in the central left frontal infarct no gross intracranial hemorrhage appreciable. -05/25 MRI brain: 1. Subacute left MCA territory infarction involving the posterior frontal and anterior parietal lobes with mild surrounding moderate vasogenic edema with hemorrhagic transformation. 2. Subacute left MCA territory infarction involving the left posterior parietal lobe. 3. Mild chronic microangiopathic changes and mild age-related global parenchymal volume loss. 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 05/27 CT head repeat: Small area of interval hemorrhage measuring 1.7 by 1.3cm related to left frontal lobe infarction with left parietal lobe infarction stable. No midline shift although local mass effect is unchanged at lobar infarction sites. Follow up repeat CT on 05/28 Continue to hold ASA given findings of hemorrhage of MRI and repeat CT Coagulopathy studies: Homocysteine WNL Protein C 188 Protein S 95 AT3 112 Prothrombin 3 gene mutation negative Factor 5 leiden f/u ALIA positive Carotid artery stenosis -2 CTA head/neck: No large vessel occlusion in the brain. Limited bilateral cavernous ICA atherosclerotic changes without significant stenosis. High-grade stenosis proximal right common carotid artery with right CC otherwise widely patent. Widely patent left CC throughout. Incidental high-grade stenosis of the origin of the left subclavian artery Positive ALIA Follow up lupus anticoagulant, antiphospholipid antibody Case discussed with Dr. Wilder Benedict, PGY1
--- NOTE | 2018-05-27 13:25 | CT ---
Date of service: 05/27/2018 PROCEDURE: CT HEAD WITHOUT CONTRAST. HISTORY: headache COMPARISON: None available. TECHNIQUE: Axial computed tomography images were obtained through the head/brain without intravenous contrast. Radiation dose: Total exam DLP = 945.43 mGy-cm. This CT exam was performed using one or more of the following dose reduction techniques: Automated exposure control, adjustment of the mA and/or kV according to patient size, and/or use of iterative reconstruction technique. FINDINGS: BRAIN: Cytotoxic edema is appreciated at the left frontal and parietal lobes in 2 separate distributions reflecting infarct in evolution now beginning in early chronic phase of degradation. Petechial hemorrhage has increased significantly at the left frontal infarct within area measuring 1.7 x 1.3 cm now identified. No interval change in overall mass effect. No midline shift. Local loss of sulcation is stable at both infarcts sites. No definitive hemorrhage seen associated with the slightly smaller infarct at the left parietal lobe. Chronic infarcts at the bilateral basal ganglia reiterated. VENTRICLES: Unremarkable. No hydrocephalus. CALVARIUM: Unremarkable. PARANASAL SINUSES: Unremarkable as visualized. No significant inflammatory changes. MASTOID AIR CELLS: Unremarkable as visualized. No inflammatory changes. OTHER FINDINGS: None. IMPRESSION: Small area of interval hemorrhage measuring 1.7 x 1.3 cm is now identified related to the left frontal lobar infarction with left parietal lobar infarction stable. No midline shift although local mass effect is unchanged at the lobar infarction sites. Follow-up CT advised. Findings discussed with Nurse Alexis with written down read back verification 05/27/2017 1:20 p.m..
--- NOTE | 2018-05-27 18:42 | CP.PCM.PN ---
<Jessenia Reynolds - Last Filed: 05/27/18 18:39> Subjective - Date & Time of Evaluation Date of Evaluation: 05/27/18 Time of Evaluation: 18:39 - Subjective Subjective: PGY-1 Medicine Progress Note for Dr. Abraham's service S/E at bedside. Reported mild pain in her head. Admits to no weakness in extremities. Denies aphasia, fevers, chills, chest pain, sob, n/v, constipation or diarrhea, and dysuria. Objective - Vital Signs/Intake and Output Vital Signs (last 24 hours): Temp Pulse Resp BP Pulse Ox 98.8 F 100 H 20 140/69 97 05/27/18 15:00 05/27/18 15:00 05/27/18 15:00 05/27/18 15:00 05/27/18 15:00 Intake and Output: 05/27/18 05/27/18 06:59 18:59 Intake Total 120 Output Total 0 Balance 120 - Medications Medications: Current Medications Famotidine (Pepcid) 20 mg PO BID [facility] Last Admin: 05/27/18 17:05 Dose: 20 mg Hydralazine HCl (Apresoline) 25 mg PO Q8 [facility] Last Admin: 05/27/18 14:56 Dose: 25 mg Hydrochlorothiazide (Microzide) 12.5 mg PO DAILY [facility] Last Admin: 05/27/18 10:20 Dose: 12.5 mg Rosuvastatin Calcium (Crestor) 5 mg PO HS [facility] Last Admin: 05/26/18 21:47 Dose: 5 mg - Labs Labs: 05/27/18 06:36 05/27/18 06:36 PT 10.9 SECONDS (9.7-12.2) 05/22/18 14:03 INR 1.0 05/22/18 14:03 APTT 37 SECONDS (21-34) H 05/22/18 14:03 - Constitutional Appears: Non-toxic, No Acute Distress - Head Exam Head Exam: NORMAL INSPECTION, NORMOCEPHALIC - Eye Exam Eye Exam: EOMI, Normal appearance. absent: Nystagmus, Scleral icterus - ENT Exam ENT Exam: Mucous Membranes Moist - Respiratory Exam Respiratory Exam: Clear to Ausculation Bilateral, NORMAL BREATHING PATTERN. absent: Chest Wall Tenderness, Decreased Breath Sounds, Rales, Rhonchi, Wheezes - Cardiovascular Exam Cardiovascular Exam: REGULAR RHYTHM, +S1, +S2. absent: Tachycardia - GI/Abdominal Exam GI & Abdominal Exam: Soft, Normal Bowel Sounds. absent: Distended, Firm, Guarding, Rigid, Tenderness - Extremities Exam Extremities Exam: Normal Inspection. absent: Calf Tenderness, Pedal Edema - Back Exam Back Exam: NORMAL INSPECTION. absent: CVA tenderness (L), CVA tenderness (R) - Neurological Exam Neurological Exam: Alert, Awake, Oriented x3 Neuro motor strength exam: Left Upper Extremity: 5, Right Upper Extremity: 5, Left Lower Extremity: 5, Right Lower Extremity: 5 - Psychiatric Exam Psychiatric exam: Normal Affect, Normal Mood - Skin Skin Exam: Dry, Intact, Normal Color Assessment and Plan - Assessment and Plan (Free Text) Assessment: Patient is a 57 year old female w/ PMH of HTN and RA admitted to hospital for evaluation right upper and lower extremity weakness. Ischemic stroke w/ hemorrhagic conversion Neurology following: Recommended for MRI in AM Neurosurgery Consulted: Dr. Atkinson- appreciate recommendations Cardiology Consulted: For echo and possible IVANNA intervention received TPA 05/26/18 CT Head 05/22/18: noted for bilateral caudate head lacunes identified. Examination otherwise unremarkable. CAT scan for performed prior to TPA. CT Head/Neck 05/22/18: No large vessel occlusion in the brain. Limited bilateral cavernous ICA atherosclerotic changes without significant stenosis. High-grade stenosis proximal right common carotid artery with right CC otherwise widely patent. Widely patent left CC throughout. Incidental high-grade stenosis of the origin of the left subclavian artery. CT Head 05/23/18: noted for cytotoxic edema is not identified in the small subsegments of the left frontal and parietal lobes by normal-appearing parenchyma therefore suggested an embolic type of ischemic infarcts trace petechial hemorrhage is difficult to exclude from normal density parenchymal in the central left frontal infarct no gross intracranial hemorrhage appreciable. MRI Brain 05/25/18 1. Subacute left MCA territory infarction involving the posterior frontal and anterior parietal lobes with mild surrounding moderate vasogenic edema with hemorrhagic transformation. 2. Subacute left MCA territory infarction involving the left posterior parietal lobe. 3. Mild chronic microangiopathic changes and mild age-related global parenchymal volume loss. 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 CT head 05/27/18: small area of interval hemorrhage measuring 1.7 x 1.3 cm is now identified related to the left frontal lobar infarction w/ left parietal lobar infarction stable. No midline shift although local mass effect is unchanged at the lobar infarction sites. Repeat CT in AM Aspirin held in setting of bleed IVANNA with Thony Coagulopathy workup pending Hx of HTN Hydralazine 25mg po q8 andrea HCTZ 12.5mg po daily Abnormal EKG flipped T waves on initial EKG ischemia likely secondary to stroke cardiac risk including hypertension 05/25/18 ECHO: LV with concentric thickening, EF estimated at 65%, diastolic filling pressures are elevated, bubble study showed NO suggestion of a shunt Hx of Rheumatoid arthritis outpatient takes prednisone and hydroxychloroquine. We will hold Carotid Stenosis Noted on CT head and neck Carotid Duplex: NO significant stenosis Crestor 5mg po HS PPx DVt ppx: AC CI in setting of brain bleed GI ppx: Pepcid 20mg po bid PGY-1 [facility]olfo Case d/w Dr. Abraham <Chino Abraham - Last Filed: 05/30/18 21:50> Objective - Vital Signs/Intake and Output Vital Signs (last 24 hours): Temp Pulse Resp BP Pulse Ox 97.9 F 98 H 20 172/80 H 99 05/30/18 15:00 05/30/18 21:44 05/30/18 15:00 05/30/18 21:44 05/30/18 15:00 - Medications Medications: Current Medications Acetaminophen (Tylenol 325mg Tab) 650 mg PO Q6 PRN PRN Reason: Pain, Mild (1-3) Last Admin: 05/30/18 14:08 Dose: 650 mg Amlodipine Besylate (Norvasc) 5 mg PO DAILY [facility] Last Admin: 05/30/18 10:06 Dose: 5 mg Famotidine (Pepcid) 20 mg PO BID [facility] Last Admin: 05/30/18 17:22 Dose: 20 mg Hydralazine HCl (Apresoline) 50 mg PO Q8 [facility] Last Admin: 05/30/18 21:43 Dose: 50 mg Hydrochlorothiazide (Microzide) 12.5 mg PO DAILY [facility] Last Admin: 05/30/18 10:02 Dose: 12.5 mg Rosuvastatin Calcium (Crestor) 5 mg PO HS [facility] Last Admin: 05/30/18 21:43 Dose: 5 mg - Labs Labs: 05/28/18 07:41 05/28/18 07:41 PT 10.9 SECONDS (9.7-12.2) 05/22/18 14:03 INR 1.0 05/22/18 14:03 APTT 37 SECONDS (21-34) H 05/22/18 14:03 Attending/Attestation - Attestation I have personally seen and examined this patient.: Yes I have fully participated in the care of the patient.: Yes I have reviewed all pertinent clinical information, including history, physical exam and plan: Yes Notes (Text): 05/30/18 21:50 This is a late entry. Care of this patient was gone over with resident Dr. Reynolds. Chino Abraham D.O.
--- NOTE | 2018-05-28 07:08 | CP.PCM.PN ---
<Daja Espinal - Last Filed: 05/28/18 13:28> Subjective - Date & Time of Evaluation Date of Evaluation: 05/28/18 Time of Evaluation: 07:08 - Subjective Subjective: PGY1 Medicine Progress Note for Dr. Chino Abraham Patient seen and evaluated at bedside this morning. Patient continues to admit to 4/10 pain in frontal region. Per Neurology report, Patient does confuse words (calls a toe ring "bracelet") in her [place] tongue. However, Patient denies aphasia, weakness in upper and/or lower extremities, chest pain, nausea, vom iting, shortness of breath, numbness/tingling in lower extremities, and/or blurred vision. Objective - Vital Signs/Intake and Output Vital Signs (last 24 hours): Temp Pulse Resp BP Pulse Ox 99.8 F H 115 H 20 160/77 H 95 05/28/18 04:28 05/28/18 04:28 05/28/18 04:28 05/28/18 04:28 05/28/18 04:28 - Medications Medications: Current Medications Famotidine (Pepcid) 20 mg PO BID [facility] Last Admin: 05/27/18 17:05 Dose: 20 mg Hydralazine HCl (Apresoline) 25 mg PO Q8 [facility] Last Admin: 05/28/18 06:22 Dose: 25 mg Hydrochlorothiazide (Microzide) 12.5 mg PO DAILY [facility] Last Admin: 05/27/18 10:20 Dose: 12.5 mg Rosuvastatin Calcium (Crestor) 5 mg PO HS [facility] Last Admin: 05/27/18 21:44 Dose: 5 mg - Labs Labs: 05/27/18 06:36 05/27/18 06:36 PT 10.9 SECONDS (9.7-12.2) 05/22/18 14:03 INR 1.0 05/22/18 14:03 APTT 37 SECONDS (21-34) H 05/22/18 14:03 - Additional Findings Additional findings: - Constitutional Appears: Non-toxic, No Acute Distress, Pleasant, Cooperative - Head Exam Head Exam: NORMAL INSPECTION, NORMOCEPHALIC - Eye Exam Eye Exam: EOMI, Normal appearance. absent: Nystagmus, Scleral icterus - ENT Exam ENT Exam: Mucous Membranes Moist - Respiratory Exam Respiratory Exam: Clear to Ausculation Bilateral, NORMAL BREATHING PATTERN. absent: Chest Wall Tenderness, Decreased Breath Sounds, Rales, Rhonchi, Wheezes - Cardiovascular Exam Cardiovascular Exam: REGULAR RHYTHM, +S1, +S2. absent: Tachycardia - GI/Abdominal Exam GI & Abdominal Exam: Soft, Normal Bowel Sounds. absent: Distended, Firm, Guard ing, Rigid, Tenderness - Extremities Exam Extremities Exam: Normal Inspection. absent: Calf Tenderness, Pedal Edema - Back Exam Back Exam: NORMAL INSPECTION. absent: CVA tenderness (L), CVA tenderness (R) - Neurological Exam Neurological Exam: Alert, Awake, Oriented x3 Neuro motor strength exam: Left Upper Extremity: 5, Right Upper Extremity: 5, Left Lower Extremity: 5, Right Lower Extremity: 5 - Psychiatric Exam Psychiatric exam: Normal Affect, Normal Mood - Skin Skin Exam: Dry, Intact, Normal Color Assessment and Plan - Assessment and Plan (Free Text) Assessment: Patient is a 57 year old female w/ PMH of HTN and RA admitted to hospital for evaluation right upper and lower extremity weakness. Ischemic stroke w/ hemorrhagic conversion -Neurology following (Dr. Hdz); recommendations appreciated - 05/28/18 CT without contrast: * stable hemorrhagic transformation of infarction in the left frontoparietal lobe with mild surrounding vasogenic edema without mass effect or midline shift * stable subacute infarction in the left posterior parietal lobe * for additional comments, please refer to official report - IVANNA on Thursday - Hold aspirin and plavix - Maintain bp control - Speech and physical therapy - Neurosurgery Consulted (Dr. Atkinson)- appreciate recommendations - Cardiology (Dr. Bhandari) Consulted: For ECHO; IVANNA scheduled for Thursday - Received TPA 05/26/18 - CT Head 05/22/18: * Noted for bilateral caudate head lacunes identified. Examination otherwise unremarkable. CAT scan for performed prior to TPA. - CT Head/Neck 05/22/18: * No large vessel occlusion in the brain. Limited bilateral cavernous ICA atherosclerotic changes without significant stenosis. High-grade stenosis proximal right common carotid artery with right CC otherwise widely patent. Widely patent left CC throughout. Incidental high-grade stenosis of the origin of the left subclavian artery. - CT Head 05/23/18: * Noted for cytotoxic edema is not identified in the small subsegments of the le ft frontal and parietal lobes by normal-appearing parenchyma therefore suggested an embolic type of ischemic infarcts trace petechial hemorrhage is difficult to exclude from normal density parenchymal in the central left frontal infarct no gross intracranial hemorrhage appreciable. - MRI Brain 05/25/18 * Subacute left MCA territory infarction involving the posterior frontal and anterior parietal lobes with mild surrounding moderate vasogenic edema with hemorrhagic transformation. * Subacute left MCA territory infarction involving the left posterior parietal lobe. * Mild chronic microangiopathic changes and mild age-related global parenchymal volume loss. 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 - CT head 05/27/18: * small area of interval hemorrhage measuring 1.7 x 1.3 cm is now identified related to the left frontal lobar infarction w/ left parietal lobar infarction stable. No midline shift although local mass effect is unchanged at the lobar infarction sites. - Aspirin held in setting of bleed - IVANNA with Thony - Coagulopathy workup pending Hx of HTN - Hydralazine 25mg po q8 andrea - HCTZ 12.5mg po daily Abnormal EKG - Flipped T waves on initial EKG ischemia likely secondary to stroke cardiac risk including hypertension - 05/25/18 ECHO: LV with concentric thickening, EF estimated at 65%, diastolic vaishnavi ling pressures are elevated, bubble study showed NO suggestion of a shunt Hx of Rheumatoid arthritis - outpatient takes prednisone and hydroxychloroquine. We will hold Carotid Stenosis - Noted on CT head and neck - Carotid Duplex: NO significant stenosis - Crestor 5mg po HS PPx - DVt ppx: AC CI in setting of brain bleed - GI ppx: Pepcid 20mg po bid Case discussed with Dr. Jarad Espinal PGY1 <Chino Abraham - Last Filed: 05/30/18 21:50> Objective - Vital Signs/Intake and Output Vital Signs (last 24 hours): Temp Pulse Resp BP Pulse Ox 97.9 F 98 H 20 172/80 H 99 05/30/18 15:00 05/30/18 21:44 05/30/18 15:00 05/30/18 21:44 05/30/18 15:00 - Medications Medications: Current Medications Acetaminophen (Tylenol 325mg Tab) 650 mg PO Q6 PRN PRN Reason: Pain, Mild (1-3) Last Admin: 05/30/18 14:08 Dose: 650 mg Amlodipine Besylate (Norvasc) 5 mg PO DAILY [facility] Last Admin: 05/30/18 10:06 Dose: 5 mg Famotidine (Pepcid) 20 mg PO BID [facility] Last Admin: 05/30/18 17:22 Dose: 20 mg Hydralazine HCl (Apresoline) 50 mg PO Q8 [facility] Last Admin: 05/30/18 21:43 Dose: 50 mg Hydrochlorothiazide (Microzide) 12.5 mg PO DAILY [facility] Last Admin: 05/30/18 10:02 Dose: 12.5 mg Rosuvastatin Calcium (Crestor) 5 mg PO HS [facility] Last Admin: 05/30/18 21:43 Dose: 5 mg - Labs Labs: 05/28/18 07:41 05/28/18 07:41 PT 10.9 SECONDS (9.7-12.2) 05/22/18 14:03 INR 1.0 05/22/18 14:03 APTT 37 SECONDS (21-34) H 05/22/18 14:03 Attending/Attestation - Attestation I have personally seen and examined this patient.: Yes I have fully participated in the care of the patient.: Yes I have reviewed all pertinent clinical information, including history, physical exam and plan: Yes Notes (Text): 05/30/18 21:50 This is a late entry. Care of this patient was gone over with resident Dr. Espinal. Chino Abraham D.O.
[2018-05-28 07:48] LABS: BASO # 0.1 K/uL (0.0-0.2); BASO % 0.7 % (0.0-2.0); EOS # 0.2 K/uL (0.0-0.7); EOS % 2.5 % (0.0-4.0); HEMOGLOBIN 11.8 g/dL (11.0-16.0); LYMPH # 0.9 K/uL (1.0-4.3); LYMPH % 10.5 % (20.0-40.0); MEAN CELL VOLUME 80.7 fL (81.0-99.0); MEAN CORPUSCULAR HGB CONC 32.3 g/dL (33.0-37.0); MONO # 0.7 K/uL (0.0-0.8); MONO % 8.8 % (0.0-10.0); NEUT # 6.6 K/uL (1.8-7.0); NEUT % 77.5 % (50.0-75.0); NRBC % 0.1 % (0.0-2.0); RBC 4.53 Mil/uL (3.80-5.20); WHITE BLOOD COUNT 8.5 K/uL (4.8-10.8)
[2018-05-28 08:14] LABS: ALB/GLOB RATIO 1.4 (1.0-2.1); ALBUMIN 4.1 g/dL (3.5-5.0); ALT/SGPT 12 U/L (9-52); AST/SGOT 24 U/L (14-36); BLOOD UREA NITROGEN 13 mg/dL (7-17); GFR NON-AFRICAN AMERICAN > 60
--- NOTE | 2018-05-28 09:43 | CT ---
Date of service: 05/28/2018 PROCEDURE: CT HEAD WITHOUT CONTRAST. HISTORY: New Stroke COMPARISON: 05/27/2018. TECHNIQUE: Axial computed tomography images were obtained through the head/brain without intravenous contrast. Radiation dose: Total exam DLP = 970.68 mGy-cm. This CT exam was performed using one or more of the following dose reduction techniques: Automated exposure control, adjustment of the mA and/or kV according to patient size, and/or use of iterative reconstruction technique. FINDINGS: HEMORRHAGE: No intracranial hemorrhage. BRAIN: There is redemonstration of stable hemorrhagic transformation of infarction in the left frontoparietal lobe with mild surrounding vasogenic edema without mass effect or midline shift. There is also redemonstration of wedge-shaped subacute infarction in the left posterior parietal lobe. There are old lacunar infarctions in bilateral caudate head. VENTRICLES: The ventricles are normal in size, shape and configuration. CALVARIUM: There is no calvarial fracture or extracranial soft tissue swelling. PARANASAL SINUSES: Predominantly clear. MASTOID AIR CELLS: Predominantly clear. OTHER FINDINGS: None. IMPRESSION: 1. Stable hemorrhagic transformation of infarction in the left frontoparietal lobe with mild surrounding vasogenic edema without mass effect or midline shift. 2. Stable subacute infarction in the left posterior parietal lobe. 3. Additional comments as described above.
--- NOTE | 2018-05-28 13:20 | CP.PCM.PN ---
Subjective - Date & Time of Evaluation Date of Evaluation: 05/27/18 Time of Evaluation: 13:30 - Subjective Subjective: Patient continues to have mild headache, 4/10, frontal in nature, made worse by exertion. NO further complaints. ROS: no nausea, no vomiting, no diarrhea. 12 point ros negative, except for headache. On exam: Exam conducted in [place] by myself. AAOX3. PERRL. CN 2-12 normal. Has paraphasic errors, ie calls bracelet ring, and struggles for word. Right director volunteer services is 4/5, all other muscle groups 5/5 Sensory: no deficits noted. Gait normal. +2 dtr ul and ll bl. Toes downgoing. No clonus. Objective - Vital Signs/Intake and Output Vital Signs (last 24 hours): Temp Pulse Resp BP Pulse Ox 98.1 F 101 H 20 120/73 99 05/28/18 07:00 05/28/18 07:45 05/28/18 07:00 05/28/18 07:00 05/28/18 07:00 - Medications Medications: Current Medications Famotidine (Pepcid) 20 mg PO BID [facility] Last Admin: 05/28/18 09:08 Dose: 20 mg Hydralazine HCl (Apresoline) 25 mg PO Q8 [facility] Last Admin: 05/28/18 06:22 Dose: 25 mg Hydrochlorothiazide (Microzide) 12.5 mg PO DAILY [facility] Last Admin: 05/28/18 09:08 Dose: 12.5 mg Rosuvastatin Calcium (Crestor) 5 mg PO HS [facility] Last Admin: 05/27/18 21:44 Dose: 5 mg - Labs Labs: 05/28/18 07:41 05/28/18 07:41 PT 10.9 SECONDS (9.7-12.2) 05/22/18 14:03 INR 1.0 05/22/18 14:03 APTT 37 SECONDS (21-34) H 05/22/18 14:03 - Constitutional Appears: Well - Head Exam Head Exam: ATRAUMATIC, NORMAL INSPECTION, NORMOCEPHALIC - Neck Exam Neck Exam: Full ROM, Lymphadenopathy - Cardiovascular Exam Cardiovascular Exam: REGULAR RHYTHM, RRR - Neurological Exam Neurological Exam: Alert, Awake, CN II-XII Intact Assessment and Plan - Assessment and Plan (Free Text) Assessment: 57 yr old woman with multiple left sided strokes, now with hemorrhagic conversion of left frontal lesion, that i feel may be secondary to embolic phenomenon. Plan; 1. IVANNA on thursday 2. Hold aspirin and pl avix. 3. Maintain bp control. 4. Speech and physical therapy Thank you Dr. Zak Rodríguez MD DPN [facility] Neurology
--- NOTE | 2018-05-28 16:02 | CP.PCM.CON ---
History of Present Illness - History of Present Illness History of Present Illness: Pt with 5 day old cerebral infarct specks of petechial hemorrhage no indication for neurosurgical involvement Past Patient History - Past Medical History & Family History Past Medical History?: Yes - Past Social History Smoking Status: Never Smoked - CARDIAC Hx Hypertension: Yes - PULMONARY Hx Respiratory Disorders: No - NEUROLOGICAL Hx Dizziness: Yes - HEENT Other/Comment: reading glasses - RENAL Hx Chronic Kidney Disease: No - MUSCULOSKELETAL/RHEUMATOLOGICAL Hx Arthritis: Yes - PSYCHIATRIC Hx Substance Use: No - SURGICAL HISTORY Other/Comment: unable to recall - ANESTHESIA Hx Anesthesia: Yes (hx hysterectomy) Meds Allergies/Adverse Reactions: Allergies Allergy/AdvReac Type Severity Reaction Status Date / Time No Known Allergies Allergy Verified 05/22/18 14:13 - Medications Medications: Current Medications Famotidine (Pepcid) 20 mg PO BID [facility] Last Admin: 05/28/18 09:08 Dose: 20 mg Hydralazine HCl (Apresoline) 25 mg PO Q8 [facility] Last Admin: 05/28/18 14:03 Dose: 25 mg Hydrochlorothiazide (Microzide) 12.5 mg PO DAILY [facility] Last Admin: 05/28/18 09:08 Dose: 12.5 mg Rosuvastatin Calcium (Crestor) 5 mg PO HS [facility] Last Admin: 05/27/18 21:44 Dose: 5 mg Results - Vital Signs Recent Vital Signs: Last Vital Signs Temp 98.1 F 05/28/18 07:00 Pulse 101 H 05/28/18 07:45 Resp 20 05/28/18 07:00 BP 120/73 05/28/18 07:00 Pulse Ox 99 05/28/18 07:00 - Labs Result Diagrams: 05/28/18 07:41 05/28/18 07:41 Labs: Laboratory Results - last 24 hr 05/24/18 05/27/18 05/27/18 13:36 16:30 21:10 WBC RBC Hgb Hct MCV MCH MCHC RDW Plt Count MPV Neut % (Auto) Lymph % (Auto) [place] % (Auto) Eos % (Auto) Baso % (Auto) Neut # (Auto) Lymph # (Auto) [place] # (Auto) Eos # (Auto) Baso # (Auto) Factor V see note Sodium Potassium Chloride Carbon Dioxide Anion Gap BUN Creatinine Est GFR ( Amer) Est GFR (Non-Af Amer) POC Glucose (mg/dL) 138 H 149 H Random Glucose Calcium Phosphorus Magnesium Total Bilirubin AST ALT Alkaline Phosphatase Total Protein Albumin Globulin Albumin/Globulin Ratio 05/28/18 05/28/18 07:41 07:41 WBC 8.5 RBC 4.53 Hgb 11.8 Hct 36.6 MCV 80.7 L MCH 26.0 L MCHC 32.3 L RDW 14.0 Plt Count 279 MPV 8.0 Neut % (Auto) 77.5 H Lymph % (Auto) 10.5 L [place] % (Auto) 8.8 Eos % (Auto) 2.5 Baso % (Auto) 0.7 Neut # (Auto) 6.6 Lymph # (Auto) 0.9 L [place] # (Auto) 0.7 Eos # (Auto) 0.2 Baso # (Auto) 0.1 Factor V Sodium 137 Potassium 3.6 Chloride 99 Carbon Dioxide 29 Anion Gap 12 BUN 13 Creatinine 0.9 Est GFR ( Amer) > 60 Est GFR (Non-Af Amer) > 60 POC Glucose (mg/dL) Random Glucose 107 H Calcium 9.0 Phosphorus 4.2 Magnesium 2.0 Total Bilirubin 1.0 AST 24 ALT 12 Alkaline Phosphatase 92 Total Protein 6.9 Albumin 4.1 Globulin 2.9 Albumin/Globulin Ratio 1.4
--- NOTE | 2018-05-29 03:20 | CP.PCM.PN ---
<Jessenia Reynolds - Last Filed: 05/29/18 03:17> Subjective - Date & Time of Evaluation Date of Evaluation: 05/29/18 Time of Evaluation: 03:17 - Subjective Subjective: PGY-1 Medicine Progress Note for Dr. Abraham's service S/E at bedside. Offers no acute complaints. Denies headaches, fevers, chills, chest pain, sob, n/v, constipation or diarrhea, and dysuria. Objective - Vital Signs/Intake and Output Vital Signs (last 24 hours): Temp Pulse Resp BP Pulse Ox 97.7 F 99 H 20 145/67 95 05/28/18 23:10 05/29/18 01:00 05/28/18 23:10 05/28/18 23:10 05/28/18 23:10 - Medications Medications: Current Medications Acetaminophen (Tylenol 325mg Tab) 650 mg PO Q6 PRN PRN Reason: Pain, Mild (1-3) Last Admin: 05/28/18 16:23 Dose: 650 mg Famotidine (Pepcid) 20 mg PO BID [facility] Last Admin: 05/28/18 17:54 Dose: 20 mg Hydralazine HCl (Apresoline) 25 mg PO Q8 [facility] Last Admin: 05/28/18 22:21 Dose: 25 mg Hydrochlorothiazide (Microzide) 12.5 mg PO DAILY [facility] Last Admin: 05/28/18 09:08 Dose: 12.5 mg Rosuvastatin Calcium (Crestor) 5 mg PO HS [facility] Last Admin: 05/28/18 22:21 Dose: 5 mg - Labs Labs: 05/28/18 07:41 05/28/18 07:41 PT 10.9 SECONDS (9.7-12.2) 05/22/18 14:03 INR 1.0 05/22/18 14:03 APTT 37 SECONDS (21-34) H 05/22/18 14:03 - Additional Findings Additional findings: - Constitutional Appears: Non-toxic, No Acute Distress - Head Exam Head Exam: NORMAL INSPECTION, NORMOCEPHALIC - Eye Exam Eye Exam: EOMI, Normal appearance. absent: Nystagmus, Scleral icterus - ENT Exam ENT Exam: Mucous Membranes Moist - Respiratory Exam Respiratory Exam: Clear to Ausculation Bilateral, NORMAL BREATHING PATTERN. absent: Chest Wall Tenderness, Decreased Breath Sounds, Rales, Rhonchi, Wheezes - Cardiovascular Exam Cardiovascular Exam: REGULAR RHYTHM, +S1, +S2. absent: Tachycardia - GI/Abdominal Exam GI & Abdominal Exam: Soft, Normal Bowel Sounds. absent: Distended, Firm, Guarding, Rigid, Tenderness - Extremities Exam Extremities Exam: Normal Inspection. absent: Calf Tenderness, Pedal Edema - Back Exam Back Exam: NORMAL INSPECTION. absent: CVA tenderness (L), CVA tenderness (R) - Neurological Exam Neurological Exam: Alert, Awake, Oriented x3 Neuro motor strength exam: Left Upper Extremity: 5, Right Upper Extremity: 5, Left Lower Extremity: 5, Right Lower Extremity: 5 - Psychiatric Exam Psychiatric exam: Normal Affect, Normal Mood - Skin Skin Exam: Dry, Intact, Normal Color Assessment and Plan - Assessment and Plan (Free Text) Assessment: Patient is a 57 year old female w/ PMH of HTN and RA admitted to hospital for evaluation right upper and lower extremity weakness. Ischemic stroke w/ hemorrhagic conversion Neurology following: Dr. Hdz- perry as below Neurosurgery Consulted: Dr. Atkinson- no surgical intervention necessary Cardiology Consulted: For echo and possible IVANNA intervention received TPA 05/26/18 CT Head 05/22/18: noted for bilateral caudate head lacunes identified. Examina tion otherwise unremarkable. CAT scan for performed prior to TPA. CT Head/Neck 05/22/18: No large vessel occlusion in the brain. Limited bilateral cavernous ICA atherosclerotic changes without significant stenosis. High-grade stenosis proximal right common carotid artery with right CC otherwise widely patent. Widely patent left CC throughout. Incidental high-grade stenosis of the origin of the left subclavian artery. CT Head 05/23/18: noted for cytotoxic edema is not identified in the small sub segments of the left frontal and parietal lobes by normal-appearing parenchyma therefore suggested an embolic type of ischemic infarcts trace petechial hemorrhage is difficult to exclude from normal density parenchymal in the central left frontal infarct no gross intracranial hemorrhage appreciable. MRI Brain 05/25/18 1. Subacute left MCA territory infarction involving the posterior frontal and anterior parietal lobes with mild surrounding moderate vasogenic edema with hemorrhagic transformation. 2. Subacute left MCA territory infarction involving the left posterior parietal lobe. 3. Mild chronic microangiopathic changes and mild age-related global parenchymal volume loss. 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 CT head 05/27/18: small area of interval hemorrhage measuring 1.7 x 1.3 cm is now identified related to the left frontal lobar infarction w/ left parietal lobar infarction stable. No midline shift although local mass effect is unchanged at the lobar infarction sites. CT head 05/28/18: stable hemorrhagic transformation of infarction in the left frontoparietal lobe w/ mild surrounding vasogenic edema w/o mass effect or midline shift; stable subacute infarction in the left posterior parietal lobe Aspirin held in setting of bleed IVANNA with Thony Coagulopathy workup pending Hx of HTN Hydralazine 25mg po q8 andrea HCTZ 12.5mg po daily Abnormal EKG flipped T waves on initial EKG ischemia likely secondary to stroke cardiac risk including hypertension 05/25/18 ECHO: LV with concentric thickening, EF estimated at 65%, diastolic filling pressures are elevated, bubble study showed NO suggestion of a shunt Hx of Rheumatoid arthritis outpatient takes prednisone and hydroxychloroquine. We will hold Carotid Stenosis Noted on CT head and neck Carotid Duplex: NO significant stenosis Crestor 5mg po HS PPx DVt ppx: AC CI in setting of brain bleed GI ppx: Pepcid 20mg po bid Disposition: Etiology of strokes pending with IVANNA procedure and hypercoaguable workup PGY-1 Jessenia Reynolds Case d/w Dr. Abraham <Chino Abraham - Last Filed: 05/30/18 21:49> Objective - Vital Signs/Intake and Output Vital Signs (last 24 hours): Temp Pulse Resp BP Pulse Ox 97.9 F 98 H 20 172/80 H 99 05/30/18 15:00 05/30/18 21:44 05/30/18 15:00 05/30/18 21:44 05/30/18 15:00 - Medications Medications: Current Medications Acetaminophen (Tylenol 325mg Tab) 650 mg PO Q6 PRN PRN Reason: Pain, Mild (1-3) Last Admin: 05/30/18 14:08 Dose: 650 mg Amlodipine Besylate (Norvasc) 5 mg PO DAILY [facility] Last Admin: 05/30/18 10:06 Dose: 5 mg Famotidine (Pepcid) 20 mg PO BID [facility] Last Admin: 05/30/18 17:22 Dose: 20 mg Hydralazine HCl (Apresoline) 50 mg PO Q8 [facility] Last Admin: 05/30/18 21:43 Dose: 50 mg Hydrochlorothiazide (Microzide) 12.5 mg PO DAILY [facility] Last Admin: 05/30/18 10:02 Dose: 12.5 mg Rosuvastatin Calcium (Crestor) 5 mg PO HS [facility] Last Admin: 05/30/18 21:43 Dose: 5 mg - Labs Labs: 05/28/18 07:41 05/28/18 07:41 PT 10.9 SECONDS (9.7-12.2) 05/22/18 14:03 INR 1.0 05/22/18 14:03 APTT 37 SECONDS (21-34) H 05/22/18 14:03 Attending/Attestation - Attestation I have personally seen and examined this patient.: Yes I have fully participated in the care of the patient.: Yes I have reviewed all pertinent clinical information, including history, physical exam and plan: Yes Notes (Text): 05/30/18 21:49 This is a late entry. Care of this patient was gone over with resident Dr. Reynolds. Chino Abraham D.O.
--- NOTE | 2018-05-29 11:50 | CT ---
Date of service: 05/29/2018 PROCEDURE: CT HEAD WITHOUT CONTRAST. HISTORY: monitor hemorrhagic conversion of infarct COMPARISON: Noncontrast head CT 05/28/2018. TECHNIQUE: Axial computed tomography images were obtained through the head/brain without intravenous contrast. Radiation dose: Total exam DLP = 900.38 mGy-cm. This CT exam was performed using one or more of the following dose reduction techniques: Automated exposure control, adjustment of the mA and/or kV according to patient size, and/or use of iterative reconstruction technique. FINDINGS: HEMORRHAGE: Incorporated below. BRAIN: Left frontal infarct hemorrhagic conversion is stable without interval increase. Limited local mass-effect is unchanged. Ischemic infarct at the left parietal lobe is stable, remaining without hemorrhagic conversion. Limited local mass effect again reiterated. Chronic infarcts at the bilateral caudate heads reiterated. Remaining brain parenchyma remains normal in density in appearance overall. VENTRICLES: Unremarkable. No hydrocephalus. CALVARIUM: Unremarkable. PARANASAL SINUSES: Unremarkable as visualized. No significant inflammatory changes. MASTOID AIR CELLS: Unremarkable as visualized. No inflammatory changes. OTHER FINDINGS: None. IMPRESSION: Stable infarctions of left parietal and frontal lobes with frontal lobar infarct hemorrhagic conversion unchanged, with no acute increase in hemorrhage. Left parietal infarct remains nonhemorrhagic. Limited local mass-effect at both lobar infarction sites remains. No midline shift.
[2018-05-30 00:03] LABS: B2 GLYCOPROTEIN I AB(IGA) <9 SAU (<=20); B2 GLYCOPROTEIN I AB(IGG) <9 SGU (<=20); B2 GLYCOPROTEIN I AB(IGM) <9 SMU (<=20)
--- NOTE | 2018-05-30 00:25 | CP.PCM.PN ---
<Jessenia Reynolds - Last Filed: 05/30/18 00:21> Subjective - Date & Time of Evaluation Date of Evaluation: 05/30/18 Time of Evaluation: 00:21 - Subjective Subjective: PGY-1 Medicine Progress note for Dr. Abraham's service S/E at bedside. Offers no acute complaints currently. Stated she had headache earlier which resolved with Tylenol. Denies fevers, chills, chest pain, sob, n/v, constipation or diarrhea, and dysuria. Objective - Vital Signs/Intake and Output Vital Signs (last 24 hours): Temp Pulse Resp BP Pulse Ox 98.2 F 106 H 20 180/75 H 96 05/29/18 21:23 05/29/18 15:00 05/29/18 15:00 05/29/18 21:23 05/29/18 15:00 - Medications Medications: Current Medications Acetaminophen (Tylenol 325mg Tab) 650 mg PO Q6 PRN PRN Reason: Pain, Mild (1-3) Last Admin: 05/29/18 14:26 Dose: 650 mg Famotidine (Pepcid) 20 mg PO BID [facility] Last Admin: 05/29/18 18:01 Dose: 20 mg Hydralazine HCl (Apresoline) 25 mg PO Q8 [facility] Last Admin: 05/29/18 21:22 Dose: 25 mg Hydrochlorothiazide (Microzide) 12.5 mg PO DAILY [facility] Last Admin: 05/29/18 09:01 Dose: 12.5 mg Rosuvastatin Calcium (Crestor) 5 mg PO HS [facility] Last Admin: 05/29/18 21:22 Dose: 5 mg - Labs Labs: 05/28/18 07:41 05/28/18 07:41 PT 10.9 SECONDS (9.7-12.2) 05/22/18 14:03 INR 1.0 05/22/18 14:03 APTT 37 SECONDS (21-34) H 05/22/18 14:03 - Constitutional Appears: Non-toxic, No Acute Distress - Head Exam Head Exam: NORMAL INSPECTION, NORMOCEPHALIC - Eye Exam Eye Exam: EOMI, Normal appearance. absent: Nystagmus, Scleral icterus - ENT Exam ENT Exam: Mucous Membranes Moist - Respiratory Exam Respiratory Exam: Clear to Ausculation Bilateral, NORMAL BREATHING PATTERN. absent: Chest Wall Tenderness, Decreased Breath Sounds, Rales, Rhonchi, Wheezes - Cardiovascular Exam Cardiovascular Exam: REGULAR RHYTHM, +S1, +S2. absent: Tachycardia - GI/Abdominal Exam GI & Abdominal Exam: Soft, Normal Bowel Sounds. absent: Distended, Firm, Guarding, Rigid, Tenderness - Neurological Exam Neurological Exam: Alert, Awake, Oriented x3 Neuro motor strength exam: Left Upper Extremity: 5, Right Upper Extremity: 5, Left Lower Extremity: 5, Right Lower Extremity: 5 - Psychiatric Exam Psychiatric exam: Normal Affect, Normal Mood - Skin Skin Exam: Dry, Intact, Normal Color Assessment and Plan - Assessment and Plan (Free Text) Assessment: Ischemic stroke w/ hemorrhagic conversion Neurology following: Dr. Hdz- recs as below Neurosurgery Consulted: Dr. Atkinson- no surgical intervention necessary Cardiology Consulted: For echo and possible IVANNA intervention received TPA 05/26/18 CT Head 05/22/18: noted for bilateral caudate head lacunes identified. Examination otherwise unremarkable. CAT scan for performed prior to TPA. CT Head/Neck 05/22/18: No large vessel occlusion in the brain. Limited bilateral cavernous ICA atherosclerotic changes without significant stenosis. High-grade stenosis proximal right common carotid artery with right CC otherwise widely patent. Widely patent left CC throughout. Incidental high-grade stenosis of the origin of the left subclavian artery. CT Head 05/23/18: noted for cytotoxic edema is not identified in the small subsegments of the left frontal and parietal lobes by normal-appearing parenchyma therefore suggested an embolic type of ischemic infarcts trace petechial hemorrhage is difficult to exclude from normal density parenchymal in the central left frontal infarct no gross intracranial hemorrhage appreciable. MRI Brain 05/25/18 1. Subacute left MCA territory infarction involving the posterior frontal and anterior parietal lobes with mild surrounding moderate vasogenic edema with hemorrhagic transformation. 2. Subacute left MCA territory infarction involving the left posterior parietal lobe. 3. Mild chronic microangiopathic changes and mild age-related global parenchymal volume loss. 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 CT head 05/27/18: small area of interval hemorrhage measuring 1.7 x 1.3 cm is now identified related to the left frontal lobar infarction w/ left parietal lobar infarction stable. No midline shift although local mass effect is unchanged at the lobar infarction sites. CT head 05/28/18: stable hemorrhagic transformation of infarction in the left frontoparietal lobe w/ mild surrounding vasogenic edema w/o mass effect or midline shift; stable subacute infarction in the left posterior parietal lobe CT head 05/29/18: stable infarctions of left parietal and frontal lobes w/ frontal lobar infarct hemorrhaic conversion unchaged, with no acute increase in hemorr hogage; left pareital infarct remains non hemorrhagic; limited local mass-effect at both lobar infarction sites remain. Aspirin held in setting of bleed IVANNA with Thony Full coagulopathy workup pending; ALIA 1:80 high, DSDNA negative, Prothrombin mutations negative; Hx of HTN Hydralazine 25mg po q8 andrea HCTZ 12.5mg po daily Abnormal EKG flipped T waves on initial EKG ischemia likely secondary to stroke cardiac risk including hypertension 05/25/18 ECHO: LV with concentric thickening, EF estimated at 65%, diastolic filling pressures are elevated, bubble study showed NO suggestion of a shunt Hx of Rheumatoid arthritis outpatient takes prednisone and hydroxychloroquine. We will hold Carotid Stenosis Noted on CT head and neck Carotid Duplex: NO significant stenosis Crestor 5mg po HS PPx DVt ppx: AC CI in setting of brain bleed GI ppx: Pepcid 20mg po bid Disposition: Etiology of strokes pending with IVANNA procedure and hypercoaguable workup PGY-1 Jessenia Reynolds Case d/w Dr. Abraham <Chino Abraham - Last Filed: 05/30/18 21:47> Objective - Vital Signs/Intake and Output Vital Signs (last 24 hours): Temp Pulse Resp BP Pulse Ox 97.9 F 101 H 20 146/73 99 05/30/18 15:00 05/30/18 15:00 05/30/18 15:00 05/30/18 15:00 05/30/18 15:00 - Medications Medications: Current Medications Acetaminophen (Tylenol 325mg Tab) 650 mg PO Q6 PRN PRN Reason: Pain, Mild (1-3) Last Admin: 05/30/18 14:08 Dose: 650 mg Amlodipine Besylate (Norvasc) 5 mg PO DAILY [facility] Last Admin: 05/30/18 10:06 Dose: 5 mg Famotidine (Pepcid) 20 mg PO BID [facility] Last Admin: 05/30/18 17:22 Dose: 20 mg Hydralazine HCl (Apresoline) 50 mg PO Q8 [facility] Last Admin: 05/30/18 13:03 Dose: 50 mg Hydrochlorothiazide (Microzide) 12.5 mg PO DAILY [facility] Last Admin: 05/30/18 10:02 Dose: 12.5 mg Rosuvastatin Calcium (Crestor) 5 mg PO HS [facility] Last Admin: 05/29/18 21:22 Dose: 5 mg - Labs Labs: 05/28/18 07:41 05/28/18 07:41 PT 10.9 SECONDS (9.7-12.2) 05/22/18 14:03 INR 1.0 05/22/18 14:03 APTT 37 SECONDS (21-34) H 05/22/18 14:03 Attending/Attestation - Attestation I have personally seen and examined this patient.: Yes I have fully participated in the care of the patient.: Yes I have reviewed all pertinent clinical information, including history, physical exam and plan: Yes Notes (Text): 05/30/18 21:38 Patient was seen and examined at 8:20 AM 05/30/[address] Reynolds's progress note for full details Also upon FULL ROS: Complains of headache on the top of her head that comes and goes NO visual disturbances but states that occasionally her eyes feel heavy NO paresthesias NO other complaints upon FULL ROS Also on Exam: 5/5 strength with flexion and extension in the bilateral upper and lower extremities 2/4 DTR bilateral upper and lower extremities Rhomberg normal Babinski normal Heal to boss normal Finger to nose normal Repeat CT Head does stability of left parietal and frontal lobe infarcts with frontal lobe infarct with hemorrhagic conversion unchanged and the left parietal infarct remains NONhemmorhagic. Patient is NPO after midnight for IVANNA with Cardiology Dr. Bhandari on morning 05/31/18. Patient's blood pressure is not under control: Hydralazine increased to 50 mg PO Q8H Norvasc 5 mg PO 1x/day was added today HCTZ 12.5 mg PO 1x/day was continued Antithrombin II normal Protein C (slight elevation) Protein S normal Factor V Mutation negative Prothrombin Gene Mutation negative ALIA (+) ALIA pattern is Homogenous Anti DS DNA Ab negative F/U Antiphospholipid Ab F/U Anticardiolipin Ab F/U Rheumatoid Factor F/U Anti CCP Ag Ab Chino Abraham D.O.
[2018-05-30 06:29] LABS: CARDIOLIPIN AB (IGA) <11 APL (<=11); CARDIOLIPIN AB (IGG) <14 GPL (<=14); CARDIOLIPIN AB (IGM) <12 MPL (<=12)
--- NOTE | 2018-05-30 12:54 | CP.PCM.PN ---
Subjective - Date & Time of Evaluation Date of Evaluation: 05/29/18 Time of Evaluation: 13:30 ( ) - Subjective Subjective: 57 yr old woman s/p several strokes that now have hemorrhagically converted and may be secondary to vegetations. Today, headache is resolved and her neurological exam is unchanged. NIHSS: 1 ROS: no nausea, no vomiting, no diarrhea. 12 point ros negative, except for headache. On exam: Exam conducted in hebrew by myself. AAOX3. PERRL. CN 2-12 normal. Has paraphasic errors, ie calls bracelet ring, and struggles for word. Right catalyst unit operator is 5/5, all other muscle groups 5/5 Sensory: no deficits noted. Gait normal. No drift. +2 dtr ul and ll bl. Toes downgoing. No clonus. Objective - Vital Signs/Intake and Output Vital Signs (last 24 hours): Temp Pulse Resp BP Pulse Ox 97.6 F 111 H 18 164/73 H 97 05/30/18 07:40 05/30/18 07:40 05/30/18 07:40 05/30/18 07:40 05/30/18 07:40 - Medications Medications: Current Medications Acetaminophen (Tylenol 325mg Tab) 650 mg PO Q6 PRN PRN Reason: Pain, Mild (1-3) Last Admin: 05/30/18 08:14 Dose: 650 mg Amlodipine Besylate (Norvasc) 5 mg PO DAILY [facility] Last Admin: 05/30/18 10:06 Dose: 5 mg Famotidine (Pepcid) 20 mg PO BID [facility] Last Admin: 05/30/18 10:02 Dose: 20 mg Hydralazine HCl (Apresoline) 50 mg PO Q8 [facility] Hydrochlorothiazide (Microzide) 12.5 mg PO DAILY [facility] Last Admin: 05/30/18 10:02 Dose: 12.5 mg Rosuvastatin Calcium (Crestor) 5 mg PO HS [facility] Last Admin: 05/29/18 21:22 Dose: 5 mg - Labs Labs: 05/28/18 07:41 05/28/18 07:41 PT 10.9 SECONDS (9.7-12.2) 05/22/18 14:03 INR 1.0 05/22/18 14:03 APTT 37 SECONDS (21-34) H 05/22/18 14:03 Assessment and Plan - Assessment and Plan (Free Text) Assessment: 57 yr old woman with multiple strokes in left hemisphere, now with some hemorrhagic conversion. Plan: 1. IVANNA in am with Dr. Bhandari 2. Hold aspirin for now 3. PT ST OT 4. Patient to return to [facility] in one month. Our team will follow Dr. Hdz
--- NOTE | 2018-05-30 13:30 | CT ---
Date of service: 05/30/2018 PROCEDURE: CT HEAD WITHOUT CONTRAST. HISTORY: stroke COMPARISON: Noncontrast head CT 05/29/2018. TECHNIQUE: Axial computed tomography images were obtained through the head/brain without intravenous contrast. Radiation dose: Total exam DLP = 1030.59 mGy-cm. This CT exam was performed using one or more of the following dose reduction techniques: Automated exposure control, adjustment of the mA and/or kV according to patient size, and/or use of iterative reconstruction technique. FINDINGS: HEMORRHAGE: No intracranial hemorrhage. BRAIN: Hemorrhagic conversion of a left frontal ischemic infarct is further diminished in density but stable in volume. Limited local mass-effect is again evident. Similar size but slightly larger ischemic infarct at the left frontal parietal junction is stable with no intracranial hemorrhage associated once again. Examination is stable overall above below the tentorium including the brainstem. VENTRICLES: Unremarkable. No hydrocephalus. CALVARIUM: Unremarkable. PARANASAL SINUSES: Unremarkable as visualized. No significant inflammatory changes. MASTOID AIR CELLS: Unremarkable as visualized. No inflammatory changes. OTHER FINDINGS: None. IMPRESSION: Stable ischemic infarcts at the left frontal lobe and left frontal parietal junction including hemorrhagic conversion at the left frontal ischemic infarct. Diminishing density of hemorrhage is seen at the left frontal infarct. No new findings in the interval.
--- NOTE | 2018-05-30 21:48 | CP.PCM.PCO ---
Physician Communication Note - Physician Communication Note Physician Communication Note: Please see above
[2018-05-31] MEDS ORDERED: Lidocaine 4% (Laryng-O-Jet) Kit MM ONE (09:59)
[2018-05-31] MEDS ORDERED: Etomidate 20 mg/10ml Inj IV ONE (10:10)
[2018-05-31] MEDS ORDERED: Propofol 10 mg/ml Inj (20 ML) ONE (10:13)
[2018-05-31] MEDS ORDERED: Labetalol 5mg/ml (4ml) ONE (10:16)
--- NOTE | 2018-05-31 10:32 | CP.PCM.PN ---
<JamesRao - Last Filed: 05/31/18 17:24> Subjective - Date & Time of Evaluation Date of Evaluation: 05/31/18 Time of Evaluation: 10:30 - Subjective Subjective: HOSPITALIST SERVICE Pt seen and examined at bedside. reports headaches last night but now resolving, pt going for IVANNA today w/ Dr Bhandari. Pt denies CP sob fc nv, understands current status and agrees with plan. Objective - Vital Signs/Intake and Output Vital Signs (last 24 hours): Temp Pulse Resp BP Pulse Ox 98.3 F 114 H 20 136/68 96 05/31/18 07:00 05/31/18 07:00 05/31/18 07:00 05/31/18 07:00 05/31/18 07:00 - Medications Medications: Current Medications Acetaminophen (Tylenol 325mg Tab) 650 mg PO Q6 PRN PRN Reason: Pain, Mild (1-3) Last Admin: 05/30/18 14:08 Dose: 650 mg Amlodipine Besylate (Norvasc) 5 mg PO DAILY [facility] Last Admin: 05/30/18 10:06 Dose: 5 mg Famotidine (Pepcid) 20 mg PO BID [facility] Last Admin: 05/30/18 17:22 Dose: 20 mg Hydralazine HCl (Apresoline) 50 mg PO Q8 [facility] Last Admin: 05/31/18 06:03 Dose: 50 mg Hydrochlorothiazide (Microzide) 12.5 mg PO DAILY [facility] Last Admin: 05/30/18 10:02 Dose: 12.5 mg Rosuvastatin Calcium (Crestor) 10 mg PO HS [facility] - Labs Labs: 05/28/18 07:41 05/28/18 07:41 PT 10.9 SECONDS (9.7-12.2) 05/22/18 14:03 INR 1.0 05/22/18 14:03 APTT 37 SECONDS (21-34) H 05/22/18 14:03 - Additional Findings Additional findings: - Constitutional Appears: Non-toxic, No Acute Distress - Head Exam Head Exam: NORMAL INSPECTION, NORMOCEPHALIC - Eye Exam Eye Exam: EOMI, Normal appearance. absent: Nystagmus, Scleral icterus - ENT Exam ENT Exam: Mucous Membranes Moist - Respiratory Exam Respiratory Exam: Clear to Ausculation Bilateral, NORMAL BREATHING PATTERN. absent: Chest Wall Tenderness, Decreased Breath Sounds, Rales, Rhonchi, Wheezes - Cardiovascular Exam Cardiovascular Exam: REGULAR RHYTHM, +S1, +S2. absent: Tachycardia - GI/Abdominal Exam GI & Abdominal Exam: Soft, Normal Bowel Sounds. absent: Distended, Firm, Guarding, Rigid, Tenderness - Neurological Exam Neurological Exam: Alert, Awake, Oriented x3 Neuro motor strength exam: Left Upper Extremity: 5, Right Upper Extremity: 5, Left Lower Extremity: 5, Right Lower Extremity: 5 - Psychiatric Exam Psychiatric exam: Normal Affect, Normal Mood - Skin Skin Exam: Dry, Intact, Normal Color Assessment and Plan - Assessment and Plan (Free Text) Assessment: 57F admitted for L MCA stroke with hemorrhagic conversion Ischemic stroke w/ hemorrhagic conversion Neurology following: Dr. Hdz- recs as below Neurosurgery Consulted: Dr. Atkinson- no surgical intervention necessary Cardiology Consulted: For echo and IVANNA received TPA 05/26/18 CT Head 05/22/18: noted for bilateral caudate head lacunes identified. Examination otherwise unremarkable. CAT scan for performed prior to TPA. CT Head/Neck 05/22/18: No large vessel occlusion in the brain. Limited bilateral cavernous ICA atherosclerotic changes without significant stenosis. High-grade stenosis proximal right common carotid artery with right CC otherwise widely patent. Widely patent left CC throughout. Incidental high-grade stenosis of the origin of the left subclavian artery. CT Head 05/23/18: noted for cytotoxic edema is not identified in the small subsegments of the left frontal and parietal lobes by normal-appearing parenchyma therefore suggested an embolic type of ischemic infarcts trace petechial hemorrhage is difficult to exclude from normal density parenchymal in the central left frontal infarct no gross intracranial hemorrhage appreciable. MRI Brain 05/25/18 1. Subacute left MCA territory infarction involving the posterior frontal and anterior parietal lobes with mild surrounding moderate vasogenic edema with hemorrhagic transformation. 2. Subacute left MCA territory infarction involving the left posterior parietal lobe. 3. Mild chronic microangiopathic changes and mild age-related global parenchymal volume loss. 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 CT head 05/27/18: small area of interval hemorrhage measuring 1.7 x 1.3 cm is now identified related to the left frontal lobar infarction w/ left parietal lobar infarction stable. No midline shift although local mass effect is unchanged at the lobar infarction sites. CT head 05/28/18: stable hemorrhagic transformation of infarction in the left frontoparietal lobe w/ mild surrounding vasogenic edema w/o mass effect or midl ine shift; stable subacute infarction in the left posterior parietal lobe CT head 05/29/18: stable infarctions of left parietal and frontal lobes w/ frontal lobar infarct hemorrhagic conversion unchanged, with no acute increase in hemorrhage; left parietal infarct remains non hemorrhagic; limited local mass- effect at both lobar infarction sites remain. CT head 05/30/18: L frontal w/ hem conversion, stable Aspirin to be restarted pending Jeovanny LEMUS IVANNA with Thony 05/31: severe aortic calcification, given Lopressor during IVANNA, recommended crestor 10 and ASA Full coagulopathy workup pending; ALIA 1:80 high, DSDNA negative, Prothrombin mutations negative; Protein C high at 188, Antrithrombin III 112 (normal) Sever Aortic Stenosis -ASA 81 qd -Crestor 10mg qd -Seen on IVANNA w/ Dr Bhandari -f/u with CTA Hx of HTN Hydralazine 25mg po q8 andrea HCTZ 12.5mg po daily Abnormal EKG flipped T waves on initial EKG ischemia likely secondary to stroke cardiac risk including hypertension 05/25/18 ECHO: LV with concentric thickening, EF estimated at 65%, diastolic filling pressures are elevated, bubble study showed NO suggestion of a shunt Hx of Rheumatoid arthritis outpatient takes prednisone and hydroxychloroquine. We will hold Carotid Stenosis Noted on CT head and neck Carotid Duplex: NO significant stenosis Crestor 5mg po HS PPx DVt ppx: AC CI in setting of brain bleed, ASA 81 GI ppx: Pepcid 20mg po bid Patient seen and case reviewed with Dr. Mills <Indira Mills V - Last Filed: 05/31/18 23:48> Objective - Vital Signs/Intake and Output Vital Signs (last 24 hours): Temp Pulse Resp BP Pulse Ox 99.0 F 84 20 112/59 L 97 05/31/18 15:00 05/31/18 15:00 05/31/18 15:00 05/31/18 15:00 05/31/18 15:00 - Medications Medications: Current Medications Acetaminophen (Tylenol 325mg Tab) 650 mg PO Q6 PRN PRN Reason: Pain, Mild (1-3) Last Admin: 05/30/18 14:08 Dose: 650 mg Amlodipine Besylate (Norvasc) 5 mg PO DAILY [facility] Famotidine (Pepcid) 20 mg PO BID [facility] Last Admin: 05/31/18 17:31 Dose: 20 mg Hydralazine HCl (Apresoline) 50 mg PO Q8 [facility] Last Admin: 05/31/18 21:32 Dose: 50 mg Hydrochlorothiazide (Microzide) 12.5 mg PO DAILY [facility] Rosuvastatin Calcium (Crestor) 10 mg PO HS [facility] Last Admin: 05/31/18 21:32 Dose: 10 mg - Labs Labs: 05/31/18 17:43 05/31/18 17:43 PT 13.3 SECONDS (9.7-12.2) H 05/31/18 17:43 INR 1.2 05/31/18 17:43 APTT 36 SECONDS (21-34) H 05/31/18 17:43 Attending/Attestation - Attestation I have personally seen and examined this patient.: Yes I have fully participated in the care of the patient.: Yes I have reviewed all pertinent clinical information, including history, physical exam and plan: Yes Notes (Text): Patient seen, examined, and case discussed with day-time resident, Patient seen in center medical and lab director during IVANNA. No noted valve defects. Patient has severe aortic calcifications NOT aortic stenosis as described by resident. Dr. Bhandari to make official IVANNA later night. Recommends for Aspirin and Statin therapy. Discussed with Dr. Up, patient may start aspirin therapy today and discussed severe aortic calcifications based on IVANNA today performed today Will need to optimize blood pressure control Assessment/plan 1) Ischemic stroke w/ hemorrhagic conversion Assessment/Plan * Neurology following: Dr. Hdz/Dr. Up- recs as below * Neurosurgery Consulted: Dr. Atkinson- no surgical intervention necessary * Cardiology Consulted: For echo and IVANNA * received TPA 05/26/18 per code stroke * Imaging: * CT Head 05/22/18: noted for bilateral caudate head lacunes identified. Examination otherwise unremarkable. CAT scan for performed prior to TPA. * CT Head/Neck 05/22/18: No large vessel occlusion in the brain. Limited bilateral cavernous ICA atherosclerotic changes without significant stenosis. High-grade stenosis proximal right common carotid artery with right CC otherwise widely patent. Widely patent left CC throughout. Incidental high-grade stenosis of the origin of the left subclavian artery. * CT Head 05/23/18: noted for cytotoxic edema is not identified in the small subsegments of the left frontal and parietal lobes by normal-a ppearing parenchyma therefore suggested an embolic type of ischemic infarcts trace petechial hemorrhage is difficult to exclude from normal density parenchymal in the central left frontal infarct no gross intracranial hemorrhage appreciable. * MRI Brain 05/25/18 1. Subacute left MCA territory infarction involving the posterior frontal and anterior parietal lobes with mild surrounding moderate vasogenic edema with hemorrhagic transformation. 2. Subacute left MCA territory infarction involving the left posterior parietal lobe. 3. Mild chronic microangiopathic changes and mild age-related global parenchymal volume loss. 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 * CT head 05/27/18: small area of interval hemorrhage measuring 1.7 x 1.3 cm is now identified related to the left frontal lobar infarction w/ left parietal lobar infarction stable. No midline shift although local mass effect is unchanged at the lobar infarction sites. * CT head 05/28/18: stable hemorrhagic transformation of infarction in the left frontoparietal lobe w/ mild surrounding vasogenic edema w/o mass effect or midline shift; stable subacute infarction in the left posterior parietal lobe * CT head 05/29/18: stable infarctions of left parietal and frontal lobes w/ frontal lobar infarct hemorrhagic conversion unchanged, with no acute increase in hemorrhage; left parietal infarct remains non hemorrhagic; limited local mass-effect at both lobar infarction sites remain. * CT head 05/30/18: L frontal w/ hem conversion, stable * Aspirin to be restarted pending Jeovanny LEMUS * IVANNA with hTony 05/31: severe aortic calcification (not aortic stenosis), given Lopressor during IVANNA, recommended crestor 10 and ASA * Full coagulopathy workup pending; ALIA 1:80 high, DSDNA negative, Prothrombin mutations negative; Protein C high at 188, Antrithrombin III 112 (normal) 2) Aortic Calcification, severe (not Aortic Stenosis) Assessment/Plan * Discussed with Cardiology, recommend aspirin and statin; Recommends CT angio to via aorta in light of calcifications * Discussed with neurology following IVANNA; may restart Aspirin therapy; recommend LINQ device; however patient plans to go back to [place] where she is originally from; unable to monitor place device here with monitoring in the [place] if patient is going home. * Awaiting official read per Dr. bhandari of IVANNA 3) Hx of HTN Assessment/Plan * d/c Hydralazine 50mg po q8 andrea given evening blood pressure (112/56) * Increase Norvasc 10mg Po daily (start first dose tomorrow) * HCTZ 12.5mg po daily 4) Abnormal EKG Assessment/Plan * flipped T waves on initial EKG ischemia likely secondary to stroke cardiac risk including hypertension * 05/25/18 ECHO: LV with concentric thickening, EF estimated at 65%, diastolic filling pressures are elevated, bubble study showed NO suggestion of a shunt * pending official read of IVANNA * If permitted by both cardiology and neurology, may restart aspirin, and statin 5) Hx of Rheumatoid arthritis Assessment/Plan * outpatient takes prednisone and hydroxychloroquine. We will hold 6) Carotid Stenosis * Noted on CT head and neck * Carotid Duplex: NO significant stenosis * Crestor 10mg po HS * patient was seen and evaluated by vascular surgery 7) PPx * DVt ppx: AC CI in setting of brain bleed * GI ppx: Pepcid 20mg po bid * PT/OT eval
[2018-05-31 14:55] LABS: PHOSPHATIDYLSERINE AB IGA <20 U/mL (<20); PHOSPHATIDYLSERINE AB IGG <10 U/mL (<10); PHOSPHATIDYLSERINE AB IGM 96 U/mL (<25)
--- NOTE | 2018-05-31 15:00 | CP.PCM.PN ---
<Elke Sommer - Last Filed: 05/31/18 16:30> Subjective - Date & Time of Evaluation Date of Evaluation: 05/31/18 Time of Evaluation: 09:00 - Subjective Subjective: PGY2- Neuro Progress Note for Dr. Up Patient seen and examined at bedside after IVANNA. Patient has some minimal throat discomfort, but is able to easily eat her lunch. Patient has no headache, chest pain, abdominal pain, nausea, vomiting, constipation, or diarrhea. Objective - Vital Signs/Intake and Output Vital Signs (last 24 hours): Temp Pulse Resp BP Pulse Ox 98.3 F 100 H 20 167/79 H 95 05/31/18 07:00 05/31/18 13:15 05/31/18 13:15 05/31/18 13:15 05/31/18 13:15 - Medications Medications: Current Medications Acetaminophen (Tylenol 325mg Tab) 650 mg PO Q6 PRN PRN Reason: Pain, Mild (1-3) Last Admin: 05/30/18 14:08 Dose: 650 mg Amlodipine Besylate (Norvasc) 5 mg PO DAILY [facility] Famotidine (Pepcid) 20 mg PO BID [facility] Last Admin: 05/31/18 10:00 Dose: Not Given Hydralazine HCl (Apresoline) 50 mg PO Q8 [facility] Last Admin: 05/31/18 14:53 Dose: 50 mg Hydrochlorothiazide (Microzide) 12.5 mg PO DAILY [facility] Rosuvastatin Calcium (Crestor) 10 mg PO HS [facility] - Labs Labs: 05/28/18 07:41 05/28/18 07:41 PT 10.9 SECONDS (9.7-12.2) 05/22/18 14:03 INR 1.0 05/22/18 14:03 APTT 37 SECONDS (21-34) H 05/22/18 14:03 - Additional Findings Additional findings: - Constitutional Appears: Non-toxic, No Acute Distress - Head Exam Head Exam: NORMAL INSPECTION, NORMOCEPHALIC - Eye Exam Eye Exam: EOMI, Normal appearance. absent: Nystagmus, Scleral icterus - ENT Exam ENT Exam: Mucous Membranes Moist - Respiratory Exam Respiratory Exam: Clear to Ausculation Bilateral, NORMAL BREATHING PATTERN. absent: Chest Wall Tenderness, Decreased Breath Sounds, Rales, Rhonchi, Wheezes - Cardiovascular Exam Cardiovascular Exam: REGULAR RHYTHM, +S1, +S2. absent: Tachycardia - GI/Abdominal Exam GI & Abdominal Exam: Soft, Normal Bowel Sounds. absent: Distended, Firm, Guarding, Rigid, Tenderness - Neurological Exam Neurological Exam: Alert, Awake, Oriented x3 Neuro motor strength exam: Left Upper Extremity: 5, Right Upper Extremity: 5, Left Lower Extremity: 5, Right Lower Extremity: 5 - Psychiatric Exam Psychiatric exam: Normal Affect, Normal Mood - Skin Skin Exam: Dry, Intact, Normal Color Assessment and Plan - Assessment and Plan (Free Text) Assessment: 57 year old female with history of HTN, RA who presents for right sided numbness and weakness, TPA administered on admission 05/22/18. MRI brain confirmed L MCA infarctions involving posterior frontal, anterior and posterior parietal regions, with hemorrhagic transformation. Patient also found to have high-grade stenosis of the proximal right common carotid on CTA. Ischemic stroke w/ hemorrhagic conversion received TPA 05/26/18 Imaging: CT Head 05/22/18: noted for bilateral caudate head lacunes identified. Examination otherwise unremarkable. CAT scan for performed prior to TPA. CT Head/Neck 05/22/18: No large vessel occlusion in the brain. Limited bilateral cavernous ICA atherosclerotic changes without significant stenosis. High-grade stenosis proximal right common carotid artery with right CC otherwise widely patent. Widely patent left CC throughout. Incidental high-grade stenosis of the origin of the left subclavian artery. CT Head 05/23/18: noted for cytotoxic edema is not identified in the small subsegments of the left frontal and parietal lobes by normal-appearing parenchyma therefore suggested an embolic type of ischemic infarcts trace petechial hemorrhage is difficult to exclude from normal density parenchymal in the central left frontal infarct no gross intracranial hemorrhage appreciable. MRI Brain 05/25/18 1. Subacute left MCA territory infarction involving the posterior frontal and anterior parietal lobes with mild surrounding moderate vasogenic edema with hemorrhagic transformation. 2. Subacute left MCA territory infarction involving the left posterior parietal lobe. 3. Mild chronic microangiopathic changes and mild age-related global parenchymal volume loss. 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 CT head 05/27/18: small area of interval hemorrhage measuring 1.7 x 1.3 cm is now identified related to the left frontal lobar infarction w/ left parietal lobar infarction stable. No midline shift although local mass effect is unchanged at the lobar infarction sites. CT head 05/28/18: stable hemorrhagic transformation of infarction in the left frontoparietal lobe w/ mild surrounding vasogenic edema w/o mass effect or midline shift; stable subacute infarction in the left posterior parietal lobe CT head 05/29/18: stable infarctions of left parietal and frontal lobes w/ frontal lobar infarct hemorrhaic conversion unchaged, with no acute increase in hemorrhogage; left pareital infarct remains non hemorrhagic; limited local mass- effect at both lobar infarction sites remain. CT head 05/30/18: L frontal w/ hem conversion, stable Full coagulopathy workup pending; * DSDNA negative, Prothrombin mutations negative, anticardiolipin negative, protein S within normal limits, antithrombin III normal * protein C slightly elevated: 188 * ALIA 1:80 high (homogenous) * Phosphatidylserine IgM positive - 96 IVANNA with Thony 05/31: severe aortic calcification, given Lopressor during IVANNA ASA 81mg po daily to be restarted EP cardio, Dr. Garcia, consulted for Linq device- patient plants to go back to [place] permanently, may need to be done there Crestor 10mg po daily Carotid artery stenosis -05/22 CTA head/neck: No large vessel occlusion in the brain. Limited bilateral cavernous ICA atherosclerotic changes without significant stenosis. High-grade stenosis proximal right common carotid artery with right CC otherwise widely patent. Widely patent left CC throughout. Incidental high-grade stenosis of the origin of the left subclavian artery HTN Hydralazine 50mg po q8h Norvasc 5mg po daily HCTZ 12.5 mg po daily Case discussed with Dr. Jeovanny Sommer, PGY2 <Bay Up - Last Filed: 06/02/18 11:22> Objective - Vital Signs/Intake and Output Vital Signs (last 24 hours): Temp Pulse Resp BP Pulse Ox 97.7 F 103 H 20 142/79 94 L 06/02/18 07:15 06/02/18 07:15 06/02/18 07:15 06/02/18 07:15 06/02/18 07:15 - Medications Medications: Current Medications Acetaminophen (Tylenol 325mg Tab) 650 mg PO Q6 PRN PRN Reason: Pain, Mild (1-3) Last Admin: 06/02/18 09:15 Dose: 650 mg Amlodipine Besylate (Norvasc) 10 mg PO DAILY [facility] Last Admin: 06/02/18 09:15 Dose: 10 mg Aspirin (Aspirin Chewable) 81 mg PO DAILY [facility] Last Admin: 06/01/18 09:50 Dose: 81 mg Famotidine (Pepcid) 20 mg PO BID [facility] Last Admin: 06/02/18 09:15 Dose: 20 mg Hydralazine HCl (Apresoline) 25 mg PO TID [facility] Last Admin: 06/02/18 09:15 Dose: 25 mg Hydrochlorothiazide (Microzide) 12.5 mg PO DAILY [facility] Last Admin: 06/02/18 09:15 Dose: 12.5 mg Rosuvastatin Calcium (Crestor) 10 mg PO HS [facility] Last Admin: 06/01/18 21:32 Dose: 10 mg - Labs Labs: 06/02/18 07:32 06/02/18 07:32 PT 13.0 SECONDS (9.7-12.2) H 06/01/18 06:24 INR 1.2 06/01/18 06:24 APTT 36 SECONDS (21-34) H 05/31/18 17:43 Attending/Attestation - Attestation I have personally seen and examined this patient.: Yes I have fully participated in the care of the patient.: Yes I have reviewed all pertinent clinical information, including history, physical exam and plan: Yes Notes (Text): I agree with the assessment and plan. Source of stroke appears to be embolic and most likely from mobile plaques in the aorta. Will continue high dose statin and aspirin 81 mg daily.
[2018-05-31 17:50] LABS: HEMOGLOBIN 10.6 g/dL (11.0-16.0); MEAN CELL VOLUME 79.8 fL (81.0-99.0); MEAN CORPUSCULAR HEMOGLOBIN 26.1 pg (27.0-31.0); MEAN CORPUSCULAR HGB CONC 32.7 g/dL (33.0-37.0); MEAN PLATELET VOLUME 7.8 fL (7.2-11.7); RBC 4.06 Mil/uL (3.80-5.20); RED CELL DISTRIBUTION WIDTH 13.8 % (11.5-14.5)
[2018-05-31 18:43] LABS: ALB/GLOB RATIO 1.2 (1.0-2.1); ALBUMIN 3.7 g/dL (3.5-5.0); ALT/SGPT 15 U/L (9-52); AST/SGOT 23 U/L (14-36); BLOOD UREA NITROGEN 13 mg/dL (7-17); CALCIUM 8.8 mg/dl (8.6-10.4); GFR NON-AFRICAN AMERICAN > 60
[2018-05-31 19:09] LABS: INR 1.2; PROTHROMBIN TIME 13.3 SECONDS (9.7-12.2)
[2018-06-01 06:36] LABS: BASO # 0.1 K/uL (0.0-0.2); BASO % 0.9 % (0.0-2.0); EOS # 0.4 K/uL (0.0-0.7); EOS % 4.1 % (0.0-4.0); HEMOGLOBIN 11.6 g/dL (11.0-16.0); LYMPH # 1.6 K/uL (1.0-4.3); LYMPH % 18.3 % (20.0-40.0); MEAN CELL VOLUME 78.7 fL (81.0-99.0); MEAN CORPUSCULAR HEMOGLOBIN 26.1 pg (27.0-31.0); MEAN CORPUSCULAR HGB CONC 33.1 g/dL (33.0-37.0); MEAN PLATELET VOLUME 7.4 fL (7.2-11.7); MONO # 0.6 K/uL (0.0-0.8); MONO % 7.3 % (0.0-10.0); NEUT % 69.4 % (50.0-75.0); RBC 4.43 Mil/uL (3.80-5.20); RED CELL DISTRIBUTION WIDTH 13.8 % (11.5-14.5); WHITE BLOOD COUNT 8.7 K/uL (4.8-10.8)
[2018-06-01 06:47] LABS: ALB/GLOB RATIO 1.2 (1.0-2.1); ALT/SGPT 22 U/L (9-52); AST/SGOT 32 U/L (14-36); BLOOD UREA NITROGEN 13 mg/dL (7-17); CALCIUM 9.3 mg/dl (8.6-10.4); GFR NON-AFRICAN AMERICAN > 60
[2018-06-01 06:49] LABS: INR 1.2
--- NOTE | 2018-06-01 07:29 | CP.PCM.PN ---
Subjective - Date & Time of Evaluation Date of Evaluation: 06/01/18 Time of Evaluation: 07:27 - Subjective Subjective: HOSPITALIST SERVICE Pt seen and examined at bedside, walking around floors aswell, pt no longer complaining of weakness or deficits. Pt had a normal bowel movement yesterday, pt denies headaches overnight. denies CP SOB Fc NV Objective - Vital Signs/Intake and Output Vital Signs (last 24 hours): Temp Pulse Resp BP Pulse Ox 98.3 F 114 H 20 152/71 H 97 06/01/18 01:00 06/01/18 01:00 06/01/18 01:00 06/01/18 01:00 06/01/18 01:00 - Medications Medications: Current Medications Acetaminophen (Tylenol 325mg Tab) 650 mg PO Q6 PRN PRN Reason: Pain, Mild (1-3) Last Admin: 05/30/18 14:08 Dose: 650 mg Amlodipine Besylate (Norvasc) 10 mg PO DAILY ON LICENSE OF [facility] Aspirin (Aspirin Chewable) 81 mg PO DAILY ON LICENSE OF [facility] Famotidine (Pepcid) 20 mg PO BID ON LICENSE OF [facility] Last Admin: 05/31/18 17:31 Dose: 20 mg Hydrochlorothiazide (Microzide) 12.5 mg PO DAILY [facility] Rosuvastatin Calcium (Crestor) 10 mg PO HS ON LICENSE OF [facility] Last Admin: 05/31/18 21:32 Dose: 10 mg - Labs Labs: 06/01/18 06:24 06/01/18 06:24 PT 13.0 SECONDS (9.7-12.2) H 06/01/18 06:24 INR 1.2 06/01/18 06:24 APTT 36 SECONDS (21-34) H 05/31/18 17:43 Assessment and Plan - Assessment and Plan (Free Text) Assessment: 57F admitted for L MCA stroke with hemorrhagic conversion Ischemic stroke w/ hemorrhagic conversion - Neurology following: Dr. Hdz/Jeovanny- recs as below Pt to continue ASA 81 mg PO daily and statin as ordered upon d/c home. It is recommended that she not travel to [place] for at least 1 month in case she has recurrent strokes. Find therapeutic recreation director in [place] for a LINQ or another type of implantable ewa rder. f/u with Dr. Up in the office within 1 month prior to her leaving the country. Feel free to contact us for any further questions or concerns. ASA restarted today, f/u CTA - Neurosurgery Consulted: Dr. Atkinson- no surgical intervention necessary - Cardiology Consulted: For echo and IVANNA showing severe aortic calcification - received TPA 05/26/18 CT Head 05/22/18: noted for bilateral caudate head lacunes identified. Examination otherwise unremarkable. CAT scan for performed prior to TPA. CT Head/Neck 05/22/18: No large vessel occlusion in the brain. Limited bilateral cavernous ICA atherosclerotic changes without significant stenosis. High-grade stenosis proximal right common carotid artery with right CC otherwise widely patent. Widely patent left CC throughout. Incidental high-grade stenosis of the origin of the left subclavian artery. CT Head 05/23/18: noted for cytotoxic edema is not identified in the small subsegments of the left frontal and parietal lobes by normal-appearing parenchyma therefore suggested an embolic type of ischemic infarcts trace petech ial hemorrhage is difficult to exclude from normal density parenchymal in the central left frontal infarct no gross intracranial hemorrhage appreciable. MRI Brain 05/25/18 1. Subacute left MCA territory infarction involving the posterior frontal and anterior parietal lobes with mild surrounding moderate vasogenic edema with hemorrhagic transformation. 2. Subacute left MCA territory infarction involving the left posterior parietal lobe. 3. Mild chronic microangiopathic changes and mild age-related global parenchymal volume loss. 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 CT head 05/27/18: small area of interval hemorrhage measuring 1.7 x 1.3 cm is now identified related to the left frontal lobar infarction w/ left parietal lobar infarction stable. No midline shift although local mass effect is unchanged at the lobar infarction sites. CT head 05/28/18: stable hemorrhagic transformation of infarction in the left frontoparietal lobe w/ mild surrounding vasogenic edema w/o mass effect or midline shift; stable subacute infarction in the left posterior parietal lobe CT head 05/29/18: stable infarctions of left parietal and frontal lobes w/ frontal lobar infarct hemorrhagic conversion unchanged, with no acute increase in hemorrhage; left parietal infarct remains non hemorrhagic; limited local mass- effect at both lobar infarction sites remain. CT head 05/30/18: L frontal w/ hem conversion, stable Aspirin to be restarted pending Jeovanny LEMUS Full coagulopathy workup pending; ALIA 1:80 high, DSDNA negative, Prothrombin mutations negative; Protein C high at 188, Antrithrombin III 112 (normal) Sever Aortic Calcification -ASA 81 qd -Crestor 10mg qd -Seen on IVANNA w/ Dr Bhandari -f/u with CTA to r/o aneurysms Hx of HTN Hydralazine 25mg po q8 andrea HCTZ 12.5mg po daily Abnormal EKG flipped T waves on initial EKG ischemia likely secondary to stroke cardiac risk including hypertension 05/25/18 ECHO: LV with concentric thickening, EF estimated at 65%, diastolic filling pressures are elevated, bubble study showed NO suggestion of a shunt Hx of Rheumatoid arthritis outpatient takes prednisone and hydroxychloroquine. We will hold Carotid Stenosis Noted on CT head and neck Carotid Duplex: NO significant stenosis Crestor 5mg po HS PPx DVt ppx: AC CI in setting of brain bleed, ASA 81 GI ppx: Pepcid 20mg po bid
[2018-06-01] MEDS ORDERED: Iohexol 350mg/ml 100 ML ONE (14:22)
--- NOTE | 2018-06-01 16:43 | CT ---
Date of service: 06/01/2018 CT Dissection protocol Indication: Aortic Calcifications, AAA protocol Technique: Contiguous axial images were obtained through the chest/abdomen/pelvis without and with intravenous contrast enhancement utilizing dissection protocol technique. Sagittal and coronal reconstructions were generated and reviewed. This CT exam was performed using 1 or more of the following dose reduction techniques: Automated exposure control, adjustment of the MAA and/or kV according to patient size, and/or use of iterative reconstruction technique. Radiation dose (DLP): 1209.73 MGy-cm. Contrast: 100 CC Omnipaque 350 Findings: Visualized portions of the inferior thyroid gland appear heterogeneous with the tiny bilateral hypodense nodules. The mediastinal and hilar vascular structures appear within normal limits. The heart appears within normal limits of size. Small left pleural effusion. Left basilar atelectasis. No pneumothorax. Aneurysmal dilatation of the ascending thoracic aorta measures approximately 3.7 x 3.6 x 3.5 cm (AP by transverse by CC dimensions, series 6, image 79 and coronal image 66). Atherosclerotic calcifications of the aorta. The prominent the peripheral mural plaque. No evidence of dissection. There is normal course and contour of the abdominal aorta and common iliac arteries. Atherosclerotic calcifications of the aorta and branches. 11 x 12 mm left hepatic lobe hypodensity with peripheral enhancement (series 6, image 98). The pancreas, spleen, adrenal glands, and contracted gallbladder appear grossly unremarkable. The kidneys enhance symmetrically without evidence of hydronephrosis or obstructing renal calculi. No bulky adenopathy appreciated. The stomach is nondistended. Visualized bowel loops appear within normal limits of caliber without evidence of obstruction. The appendix is not identified. No inflammatory changes are seen in the right lower quadrant to suggest acute appendicitis. No definite free air. The urinary bladder appears unremarkable. The uterus is absent consistent with hysterectomy. Scattered calcifications possibly calcified lymph nodes within bilateral inguinal regions, pelvic sidewalls, retroperitoneum, and mesentery. No significant pelvic free fluid is identified. Osseous demineralization. Degenerative changes. Impression: Small left pleural effusion. Left basilar atelectasis. Aneurysmal dilatation of the ascending thoracic aorta measures approximately 3.7 x 3.6 x 3.5 cm. Atherosclerotic calcifications of the aorta. Prominent peripheral mural plaque. No evidence of dissection. There is normal course and contour of the abdominal aorta and common iliac arteries. Atherosclerotic calcifications of the aorta and branches. Indeterminate 11 x 12 mm left hepatic lobe hypodensity with peripheral enhancement. Further evaluation with dedicated liver protocol CT may be considered. Scattered calcifications possibly calcified lymph nodes within bilateral inguinal regions, pelvic sidewalls, retroperitoneum, and mesentery. Visualized portions of the inferior thyroid gland appear heterogeneous with the tiny bilateral hypodense nodules.
--- NOTE | 2018-06-02 00:16 | CON ---
DATE: 06/01/2018 CONSULT SERVICE: Clinical cardiac electrophysiology. PHYSICIAN PERFORMING CONSULT: Jose Gonzalez MD REFERRING CONSULT DOCTOR: Bay Up MD REASON FOR CONSULTATION: Cryptogenic stroke. HISTORY OF PRESENT ILLNESS: Ms. Mamadou Celeste is a very pleasant 57-year-old female, who resides in [place] and is visiting the [place], with a history of hypertension and what appears to be rheumatoid arthritis who presents to [facility] with right upper extremity numbness and weakness, which was diagnosed to be acute stroke with improvement in symptoms after receiving a dose of TPA upon admission on 05/22/2018. During her care, she has been diagnosed with multiple strokes of the left hemisphere and originally had some hemorrhagic conversion during her hospitalization. She has undergone evaluation by Cardiology including a IVANNA. She does have normal left ventricular ejection fraction, but IVANNA did demonstrate a heavily calcified aortic valve as well as evidence of aortic arch atheroma. She denies a history of palpitations. No lightheadedness, dizziness, or syncope prior to this particular event. Her EKG has demonstrated normal sinus rhythm with normal antegrade conduction. She is not in any krystle arrhythmia on telemetry monitoring. Notably, she will remain in the [place] for a few weeks and will go back to live in [place] at that time. REVIEW OF SYSTEMS: A comprehensive 10-point review of systems was performed and notable for what was seen above. The translation was obtained by the patient's family member in the room. FAMILY HISTORY: Noncontributory. SOCIAL HISTORY: Noncontributory. PHYSICAL EXAMINATION: GENERAL: The patient is alert, oriented, thin. VITAL SIGNS: The patient's blood pressure is 150-160/70s, heart rate of 90, respiratory rate of 12. PULMONARY: Lungs are clear anterior. CARDIOVASCULAR: Regular. S1 and S2. GASTROINTESTINAL: Abdomen is soft. EXTREMITIES: No edema. SKIN: No rashes. PSYCHIATRIC: Normal affect. LABORATORY DATA: Labs have been reviewed and demonstrated hemoglobin of 10.6 and platelet count of 316. ASSESSMENT AND PLAN: Ms. Mamadou Celeste is presenting with recurrent cryptogenic strokes. She has not demonstrated any evidence of arrhythmia during her hospitalization here. Her etiology of the strokes may be linked to her calcified aortic valve and reported atheromas on transesophageal echocardiography in the aorta. As such, it is not entirely clear and certainly by her age and history, it will be reasonable to obtain a long-term ambulatory monitoring. Ideally, she will be offered a loop recorder, but she is going back to [place] in the next few weeks. As we cannot ensure followup, I have instructed the patient and her family to seek medical attention and if possible a metal fabricating supervisor in [place] who can assess the history and potentially proceed with the appropriate steps including ambulatory monitoring. For now, I will not make any other recommendations and I will refer to Neurology and Cardiology for her further care. Thank you very much for allowing me to participate in the care of this patient. Jose MD Carlos
--- NOTE | 2018-06-02 06:58 | CP.PCM.PN ---
Subjective - Date & Time of Evaluation Date of Evaluation: 06/02/18 Time of Evaluation: 06:58 Objective - Vital Signs/Intake and Output Vital Signs (last 24 hours): Temp Pulse Resp BP Pulse Ox 98.2 F 104 H 20 169/82 H 94 L 06/01/18 23:10 06/02/18 01:18 06/01/18 23:10 06/01/18 23:10 06/01/18 23:10 - Medications Medications: Current Medications Acetaminophen (Tylenol 325mg Tab) 650 mg PO Q6 PRN PRN Reason: Pain, Mild (1-3) Last Admin: 05/30/18 14:08 Dose: 650 mg Amlodipine Besylate (Norvasc) 10 mg PO DAILY [facility] Last Admin: 06/01/18 09:50 Dose: 10 mg Aspirin (Aspirin Chewable) 81 mg PO DAILY [facility] Last Admin: 06/01/18 09:50 Dose: 81 mg Famotidine (Pepcid) 20 mg PO BID [facility] Last Admin: 06/01/18 17:06 Dose: 20 mg Hydralazine HCl (Apresoline) 25 mg PO TID [facility] Last Admin: 06/01/18 17:06 Dose: 25 mg Hydrochlorothiazide (Microzide) 12.5 mg PO DAILY [facility] Last Admin: 06/01/18 09:50 Dose: 12.5 mg Rosuvastatin Calcium (Crestor) 10 mg PO HS [facility] Last Admin: 06/01/18 21:32 Dose: 10 mg - Labs Labs: 06/01/18 06:24 06/01/18 06:24 PT 13.0 SECONDS (9.7-12.2) H 06/01/18 06:24 INR 1.2 06/01/18 06:24 APTT 36 SECONDS (21-34) H 05/31/18 17:43
--- NOTE | 2018-06-02 08:07 | CT ---
Date of service: 06/02/2018 PROCEDURE: CT HEAD WITHOUT CONTRAST. HISTORY: headache, code stroke pt COMPARISON: Comparison is made with the previous study dated 05/30/2018 TECHNIQUE: Axial computed tomography images were obtained through the head/brain without intravenous contrast. Radiation dose: Total exam DLP = 973.75 mGy-cm. This CT exam was performed using one or more of the following dose reduction techniques: Automated exposure control, adjustment of the mA and/or kV according to patient size, and/or use of iterative reconstruction technique. FINDINGS: HEMORRHAGE: Again noted is focal high attenuation in the left frontal infarct suggestive of hemorrhagic conversion which has not significantly changed since the previous exam. No evidence of acute intracranial hemorrhage. BRAIN: Focal encephalomalacia at the left frontal lobe and left frontal parietal junction again noted. Volume loss and chronic microvascular white matter ischemic disease are again noted. VENTRICLES: Unremarkable. No hydrocephalus. CALVARIUM: Unremarkable. PARANASAL SINUSES: Unremarkable as visualized. No significant inflammatory changes. MASTOID AIR CELLS: Unremarkable as visualized. No inflammatory changes. OTHER FINDINGS: None. IMPRESSION: No evidence of significant interval changes noted since the previous exam. Again noted is left frontal infarct with stable hemorrhagic conversion. No CT evidence of new cortical infarction.
[2018-06-02 08:09] LABS: BASO # 0.1 K/uL (0.0-0.2); BASO % 0.9 % (0.0-2.0); EOS # 0.3 K/uL (0.0-0.7); EOS % 4.6 % (0.0-4.0); LYMPH # 0.8 K/uL (1.0-4.3); LYMPH % 10.2 % (20.0-40.0); MEAN CELL VOLUME 79.9 fL (81.0-99.0); MEAN CORPUSCULAR HGB CONC 32.5 g/dL (33.0-37.0); MEAN PLATELET VOLUME 7.4 fL (7.2-11.7); MONO # 0.5 K/uL (0.0-0.8); MONO % 6.7 % (0.0-10.0); NEUT # 5.8 K/uL (1.8-7.0); NEUT % 77.6 % (50.0-75.0); RBC 4.25 Mil/uL (3.80-5.20); RED CELL DISTRIBUTION WIDTH 14.1 % (11.5-14.5); WHITE BLOOD COUNT 7.5 K/uL (4.8-10.8)
[2018-06-02 08:31] LABS: ALB/GLOB RATIO 1.3 (1.0-2.1); ALT/SGPT 22 U/L (9-52); AST/SGOT 37 U/L (14-36); BLOOD UREA NITROGEN 9 mg/dL (7-17); CALCIUM 9.1 mg/dl (8.6-10.4); GFR NON-AFRICAN AMERICAN > 60
--- NOTE | 2018-06-02 15:42 | CP.PCM.DIS ---
Provider - Provider Date of Admission: 05/22/18 15:11 Attending physician: Indira Mills DO Consults: 05/22/18 13:56 Stroke Team Consult Stat Comment: Consulting Provider: Neurohospitalist Consulting Physician: NEUROHOSP Neurohospitalist for Consult: Bay Up Neurohospitalist for Consult: Hdz,Gautami Reason for Consult: CVA 05/22/18 15:29 Neurology Consult Routine Comment: Consulting Provider: Bay Up Consulting Physician: Bay Up Reason for Consult: code stroke, s/p tpa 05/22/18 16:31 Cardiology Consult Routine Comment: Consulting Provider: Eduardo Bhandari Consulting Physician: Eduardo Bhandari Reason for Consult: Cardiomegaly on CXR, abnormal EKG (ischemic changes) 05/22/18 16:44 Vascular Surgery Routine Comment: Consulting Provider: Timothy Regalado Jr. Physician Instructions: Reason For Exam: CCA stenosis 05/27/18 14:30 Physician Consult Routine Comment: Consulting Provider: Luis F Atkinson Consulting Physician: Luis F Atkinson Reason for Consult: left parietal lobe and frontal lobe infarct w/ hemorrhage Additional Comments: Repeat CT in AM; we understand likely no neurosurgical intervention is warranted; would appreciate input from Neurosurgery 05/31/18 13:42 Physician Consult Routine Comment: Consulting Provider: Jose Gonzalez Consulting Physician: Jose Gonzalez Reason for Consult: Consider Linq device Additional Comments: Patient has emboic stroke, Linq may be good if IVANNA -ve Time Spent in preparation of Discharge (in minutes): 45 Hospital Course - Lab Results Lab Results: Micro Results 05/26/18 07:04 Naris MRSA Culture - Final MRSA NOT DETECTED 05/22/18 19:55 Naris MRSA Culture (Admit) - Final MRSA NOT DETECTED Most Recent Lab Values WBC 7.5 K/uL (4.8-10.8) 06/02/18 07:32 RBC 4.25 Mil/uL (3.80-5.20) 06/02/18 07:32 Hgb 11.0 g/dL (11.0-16.0) 06/02/18 07:32 Hct 33.9 % (34.0-47.0) L 06/02/18 07:32 MCV 79.9 fL (81.0-99.0) L 06/02/18 07:32 MCH 26.0 pg (27.0-31.0) L 06/02/18 07:32 MCHC 32.5 g/dL (33.0-37.0) L 06/02/18 07:32 RDW 14.1 % (11.5-14.5) 06/02/18 07:32 Plt Count 378 K/uL (130-400) 06/02/18 07:32 MPV 7.4 fL (7.2-11.7) 06/02/18 07:32 Neut % (Auto) 77.6 % (50.0-75.0) H 06/02/18 07:32 Lymph % (Auto) 10.2 % (20.0-40.0) L 06/02/18 07:32 [place] % (Auto) 6.7 % (0.0-10.0) 06/02/18 07:32 Eos % (Auto) 4.6 % (0.0-4.0) H 06/02/18 07:32 Baso % (Auto) 0.9 % (0.0-2.0) 06/02/18 07:32 Neut # (Auto) 5.8 K/uL (1.8-7.0) 06/02/18 07:32 Lymph # (Auto) 0.8 K/uL (1.0-4.3) L 06/02/18 07:32 [place] # (Auto) 0.5 K/uL (0.0-0.8) 06/02/18 07:32 Eos # (Auto) 0.3 K/uL (0.0-0.7) 06/02/18 07:32 Baso # (Auto) 0.1 K/uL (0.0-0.2) 06/02/18 07:32 Neutrophils % (Manual) 84 % (50-75) H 05/22/18 14:03 Band Neutrophils % 2 % (0-2) 05/22/18 14:03 Lymphocytes % (Manual) 6 % (20-40) L 05/22/18 14:03 Reactive Lymphs % 1 % (0-0) H 05/22/18 14:03 Monocytes % (Manual) 5 % (0-10) 05/22/18 14:03 Eosinophils % (Manual) 2 % (0-4) 05/22/18 14:03 Platelet Estimate Normal (NORMAL) 05/22/18 14:03 RBC Morphology Normal 05/22/18 14:03 ESR 20 mm/hr (0-20) 05/22/18 20:11 PT 13.0 SECONDS (9.7-12.2) H 06/01/18 06:24 INR 1.2 06/01/18 06:24 APTT 36 SECONDS (21-34) H 05/31/18 17:43 Lupus Anticoagulant see note 05/28/18 07:41 LA PTT Screen 47 sec (<=40) H 05/28/18 07:41 dRVVT Mixing Study 32 sec (<=45) 05/28/18 07:41 dRVVT Mix Interpret Not indicated 05/28/18 07:41 Hexagonal Phase Confirm Negative (Negative) 05/28/18 07:41 Protein C Activity 188 % (70-180) H 05/24/18 13:36 Protein S Activity 95 % (60-140) 05/24/18 13:36 Antithrombin III Activ 112 % activity (80-120) 05/24/18 13:36 Factor V see note 05/24/18 13:36 Sodium 137 mmol/L (132-148) 06/02/18 07:32 Potassium 3.8 mmol/L (3.6-5.2) 06/02/18 07:32 Chloride 100 mmol/L (98-107) 06/02/18 07:32 Carbon Dioxide 30 mmol/L (22-30) 06/02/18 07:32 Anion Gap 11 (10-20) 06/02/18 07:32 BUN 9 mg/dL (7-17) 06/02/18 07:32 Creatinine 0.8 mg/dL (0.7-1.2) 06/02/18 07:32 Est GFR ( Amer) > 60 06/02/18 07:32 Est GFR (Non-Af Amer) > 60 06/02/18 07:32 POC Glucose (mg/dL) 102 mg/dL (65-110) 06/02/18 06:28 Random Glucose 101 mg/dL (65-105) 06/02/18 07:32 Hemoglobin A1c 6.0 % (4.2-6.5) 05/22/18 14:03 Calcium 9.1 mg/dl (8.6-10.4) 06/02/18 07:32 Phosphorus 4.6 mg/dL (2.5-4.5) H 06/02/18 07:32 Magnesium 1.9 mg/dL (1.6-2.3) 06/02/18 07:32 Total Bilirubin 0.4 mg/dL (0.2-1.3) 06/02/18 07:32 AST 37 U/L (14-36) H 06/02/18 07:32 ALT 22 U/L (9-52) 06/02/18 07:32 Alkaline Phosphatase 91 U/L (38-126) 06/02/18 07:32 Total Creatine Kinase 30 U/L (30-135) 05/24/18 05:52 CK-MB (Mass) 0.55 ng/mL (0.0-3.38) 05/24/18 05:52 Troponin I 0.0240 ng/mL (0.00-0.120) 05/24/18 05:52 C-React Prot High Sens 12.46 mg/L (1.00-3.00) H 05/22/18 20:05 NT-Pro-B Natriuret Pep 408 pg/mL (0-900) 05/22/18 20:05 Total Protein 7.2 g/dL (6.3-8.3) 06/02/18 07:32 Albumin 4.0 g/dL (3.5-5.0) 06/02/18 07:32 Globulin 3.1 gm/dL (2.2-3.9) 06/02/18 07:32 Albumin/Globulin Ratio 1.3 (1.0-2.1) 06/02/18 07:32 Triglycerides 107 mg/dL (0-149) 05/22/18 14:03 Cholesterol 199 mg/dL (0-199) 05/22/18 14:03 LDL Cholesterol Direct 102 mg/dL (0-129) 05/22/18 14:03 HDL Cholesterol 67 mg/dL (30-70) 05/22/18 14:03 Vitamin B12 698 pg/mL (239-931) 05/22/18 20:05 Homocysteine 7.3 umol/L (4.7-12.6) 05/24/18 13:36 Thyroxine (T4) 12.3 ug/dL (5.5-11.0) H 05/22/18 20:05 Total T3 1.78 nmol/L (1.49-2.60) 05/22/18 20:05 TSH 3rd Generation 1.95 mIU/L (0.46-4.68) 05/22/18 20:05 Urine Color Straw (YELLOW) 05/23/18 02:38 Urine Clarity Clear (Clear) 05/23/18 02:38 Urine pH 6.0 (5.0-8.0) 05/23/18 02:38 Ur Specific [place] 1.025 (1.003-1.030) 05/23/18 02:38 Urine Protein Negative mg/dL (NEGATIVE) 05/23/18 02:38 Urine Glucose (UA) Normal mg/dL (Normal) 05/23/18 02:38 Urine Ketones Negative mg/dL (NEGATIVE) 05/23/18 02:38 Urine Blood 1+ (NEGATIVE) H 05/23/18 02:38 Urine Nitrate Negative (NEGATIVE) 05/23/18 02:38 Urine Bilirubin Negative (NEGATIVE) 05/23/18 02:38 Urine Urobilinogen Normal mg/dL (0.2-1.0) 05/23/18 02:38 Ur Leukocyte Esterase 1+ Sp/uL (Negative) H 05/23/18 02:38 Urine WBC (Auto) 37 /hpf (0-5) H 05/23/18 02:38 Urine RBC (Auto) 5 /hpf (0-3) H 05/23/18 02:38 Ur Squamous Epith Cells 4 /hpf (0-5) 05/23/18 02:38 Cycl Citrul Peptide IgG 68 Units H 05/31/18 07:37 ALIA Screen Positive (Negative) H 05/23/18 02:38 ALIA Titer 1:80 Titer (<1:40) H 05/23/18 02:38 ALIA Pattern Homogeneous H 05/23/18 02:38 Double Strand DNA Ab <1 IU/mL 05/28/18 07:41 [id number] Ab <9 DAPHNE (<=20) 05/27/18 06:36 Beta-2 GPI IgG Ab <9 SGU (<=20) 05/27/18 06:36 Beta-2 GPI IgM Ab <9 SMU (<=20) 05/27/18 06:36 Phosphatidylserine IgG <10 U/mL (<10) 05/27/18 06:36 Phosphatidylserine IgA <20 U/mL (<20) 05/27/18 06:36 Phosphatidylserine IgM 96 U/mL (<25) H 05/27/18 06:36 Anti-Phospholipid Intrp see note 05/27/18 06:36 Anti-Cardiolipin IgG Ab <14 GPL (<=14) 05/27/18 06:36 Anti-Cardiolipin IgA Ab <11 APL (<=11) 05/27/18 06:36 Anti-Cardiolipin IgM Ab <12 MPL (<=12) 05/27/18 06:36 Prothrombin Mut Interp see note 05/24/18 13:36 Prothrombin Gene Mutate see note 05/24/18 13:36 Prothromb Gene Review see note 05/24/18 13:36 Blood Type O POSITIVE 05/22/18 14:03 Antibody Screen Negative 05/22/18 14:03 - Hospital Course Hospital Course: On admission: Patient is a 57-year-old F who is here visiting her family from [place] (arrived 3 months ago) who also has a past medical history of HTN and RA presents to the ED with slurred speech, right upper extremity numbness/weakness and right lower extremity numbness/weakness. Patient's daughter assisted with translation with the permission of the Patient. Patient notes her symptoms began at 12:30PM when her granddaughter could not get her to answer to her questions. Patient noted she began "feeling funny" and described numbness/tingling in her R upper and R lower extremities. While in the ED, Patient received dose of TPA at 14:30. Per Patient, her symptoms improved at 15:30, once re-evaluated. Patient otherwise denies chest pain, palpitations, blurred vision, shortness of breath, abdominal pain, fever, chills, nausea, and/or vomiting, headache, and/or dizziness. Hospital course: Patient was admitted for right sided weakness and numbness. Neurologist Dr. Up was consulted after code stroke was called and patient received TPA immediately. Patient's right sided weakness and numbness resolved after TPA. Initial imaging revealed ischemic infarcts with subsequent hemorrhagic conversion during patient's stay after she complained of headaches. Neurosurgery Dr. Atkinson was consulted who recommended no further surgical intervention at this time. [employer] Dr. Bhandari was consulted, given patient had abnormal EKG with flipped T waves. IVANNA was done to determine etiology of strokes which revealed severe aortic calcification with source of stroke likely embolic from mobile plaques from aorta. Upon discharge Dr. Bhandari stated that cardiac monitoring device was not indicated at this time, recommended beta sheela and statins with follow up with real estate coordinator. Patient's blood pressure was monitored and she was discharged on Norvasc 10mg, Lisinopril and Toprol XL. On discharge, patient was stable, ambulating with good strength and sensation in upper and lower extremities. Imaging: CT Head 05/22/18: noted for bilateral caudate head lacunes identified. Examination otherwise unremarkable. CAT scan for performed prior to TPA. CT Head/Neck 05/22/18: No large vessel occlusion in the brain. Limited bilateral cavernous ICA atherosclerotic changes without significant stenosis. High-grade stenosis proximal right common carotid artery with right CC otherwise widely patent. Widely patent left CC throughout. Incidental high-grade stenosis of the origin of the left subclavian artery. Carotid doppler 05/22/18 No significant stenosis of right and left extracranial ca rotid arteries. CT Head 05/23/18: noted for cytotoxic edema is not identified in the small subsegments of the left frontal and parietal lobes by normal-appearing parenchyma therefore suggested an embolic type of ischemic infarcts trace petechial hemorrhage is difficult to exclude from normal density parenchymal in the central left frontal infarct no gross intracranial hemorrhage appreciable. MRI Brain 05/25/18 1. Subacute left MCA territory infarction involving the posterior frontal and anterior parietal lobes with mild surrounding moderate vasogenic edema with hemorrhagic transformation. 2. Subacute left MCA territory infarction involving the left posterior parietal lobe. 3. Mild chronic microangiopathic changes and mild age-related global parenchymal volume loss. 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 CT head 05/27/18: small area of interval hemorrhage measuring 1.7 x 1.3 cm is now identified related to the left frontal lobar infarction w/ left parietal lobar infarction stable. No midline shift although local mass effect is unchanged at the lobar infarction sites. CT head 05/28/18: stable hemorrhagic transformation of infarction in the left frontoparietal lobe w/ mild surrounding vasogenic edema w/o mass effect or midline shift; stable subacute infarction in the left posterior parietal lobe CT head 05/29/18: stable infarctions of left parietal and frontal lobes w/ frontal lobar infarct hemorrhaic conversion unchaged, with no acute increase in hemorrhogage; left pareital infarct remains non hemorrhagic; limited local mass- effect at both lobar infarction sites remain. CT head 05/30/18: Stable ischemic infarcts at the left frontal lobe and left frontal parietal junction including hemorrhagic conversion at the left frontal ischemic infarct. Diminishing density of hemorrhage is seen at the left frontal infarct. No new findings in the interval. CTA Small left pleural effusion. Left basilar atelectasis. Aneurysmal dilatation of the ascending thoracic aorta measures approximately 3.7 x 3.6 x 3.5 cm. Atherosclerotic calcifications of the aorta. Prominent peripheral mural plaque. No evidence of dissection. There is normal course and contour of the abdominal aorta and common iliac arteries. Atherosclerotic calcifications of the aorta and branches. Indeterminate 11 x 12 mm left hepatic lobe hypodensity with peripheral enhancement. Further evaluation with dedicated liver protocol CT may be considered. Scattered calcifications possibly calcified lymph nodes within bilateral inguinal regions, pelvic sidewalls, retroperitoneum, and mesentery. Visualized portions of the inferior thyroid gland appear heterogeneous with the tiny bilateral hypodense nodules. CT head 06/02/18 no evidence of significant interval changes noted since previous exam. Again noted is left frontal infarct with stable hemorrhagic conversion. No CT evidence of new cortical infarction. Carotid doppler no significant stenosis of extracranial carotid arteries. 05/25/18 ECHO: LV with concentric thickening, EF estimated at 65%, diastolic filling pressures are elevated, bubble study showed NO suggestion of a shunt. Discharge instructions: Follow up with Dr. Up at his clinic at [address] [place] [address] by calling [phone] within 3 weeks prior to traveling back to [facility]. Patient may fly back to [facility] on 07/02/2018. You are currently being discharged on Aspirin 81mg PO. Please do not take any other steroids or NSAIDs including Ibuprofen for your history of arthritis as it may cause you to bleed more. You may take Tylenol for pain. Once you are in [facility], please follow up with real estate coordinator in [place] for hypertension and aneurysmal dilatation found on imaging. Please continue to monitor blood pressure at home using BP cuff. Please continue to monitor patient for signs and symptoms of stroke. If symptoms return, please return to ED for further evaluation. Discharge Exam - Head Exam Head Exam: NORMAL INSPECTION, NORMOCEPHALIC - Eye Exam Eye Exam: EOMI, PERRL - ENT Exam ENT Exam: Mucous Membranes Moist - Respiratory Exam Respiratory Exam: Clear to PA & Lateral, NORMAL BREATHING PATTERN. absent: Rales, Rhonchi, Wheezes - Cardiovascular Exam Cardiovascular Exam: REGULAR RHYTHM, +S1, +S2 - GI/Abdominal Exam GI & Abdominal Exam: Normal Bowel Sounds, Soft. absent: Tenderness - Extremities Exam Extremities exam: pedal pulses present - Neurological Exam Neurological exam: Alert, CN II-XII Intact, Normal Gait, Oriented x3, Reflexes Normal Additional comments: Strength equal and 5/5 in upper and lower extremities Sensation equal bilaterally in upper and lower extremities Negative Romberg Able to ambulate - Psychiatric Exam Psychiatric exam: Normal Affect, Normal Mood Discharge Plan - Discharge Medications Prescriptions: amLODIPine [Norvasc] 10 mg PO DAILY #30 tab Aspirin [Aspirin Chewable] 81 mg PO DAILY #30 chew Lisinopril [Zestril] 5 mg PO DAILY #30 tab Metoprolol Succinate [Toprol Xl] 12.5 mg PO DAILY #30 tab.er.24h Rosuvastatin Calcium [Crestor] 10 mg PO HS #30 tab - Follow Up Plan Condition: STABLE Disposition: HOME/ ROUTINE Instructions: Heart Healthy Diet, Stroke (DC), Carotid Artery Stenosis (DC), Aspirin, Lisinopril, Metoprolol, Rosuvastatin Additional Instructions: Follow up with Dr. Up at his clinic at [address] [place] [address] by calling [phone] within 3 weeks prior to traveling back to [facility]. Patient may fly back to [facility] on 07/02/2018. You are currently being discharged on Aspirin 81mg PO. Please do not take any other steroids or NSAIDs including Ibuprofen for your history of arthritis as it may cause you to bleed more. You may take Tylenol for pain. Once you are in [facility], please follow up with real estate coordinator in [facility] for hypertension and aneurysmal dilatation found on imaging. Please continue to monitor blood pressure at home using BP cuff. Please continue to monitor patient for signs and symptoms of stroke. If symptoms return, please return to ED for further evaluation. Referrals: Bay Up MD [Staff Provider] -
[2018-06-02 16:26] VITALS: BP 108/68; PULSE 88; RESP 20; TEMP 97.5; O2SAT 96
--- NOTE | 2018-06-03 20:15 | CARD ---
APPROVED REPORT Date of service: 06/02/2018 EKG Measurement Heart [id number] <Conclusion> Normal sinus rhythm Left ventricular hypertrophy with repolarization abnormality Abnormal ECG
== END 2018-06-02 18:32 | disposition home or self-care (01) | DRG 45 ==
LOC: C.ER 13:20 → C.9I 15:11 → C.6T 05-26 22:01
PROVIDERS: ADMIT Family Medicine; ATTEND Hospitalist
PROC: 3E03317 Introduction of Other Thrombolytic into Peripheral Vein, Percutaneous Approach (ICD-10-PCS; principal; 2018-05-22)
PROC: B246ZZ4 Ultrasonography of Right and Left Heart, Transesophageal (ICD-10-PCS; 2018-05-31)
DX: I63.412 Cerebral infarction due to embolism of left middle cerebral artery (principal); I61.9 Nontraumatic intracerebral hemorrhage, unspecified; G93.6 Cerebral edema; I10 Essential (primary) hypertension; I35.0 Nonrheumatic aortic (valve) stenosis; I65.21 Occlusion and stenosis of right carotid artery; I70.0 Atherosclerosis of aorta; I71.2 Thoracic aortic aneurysm, without rupture; J98.11 Atelectasis; M06.9 Rheumatoid arthritis, unspecified; R29.704 NIHSS score 4; Z77.22 Contact with and (suspected) exposure to environmental tobacco smoke (acute) (chronic); Z79.82 Long term (current) use of aspirin; Z79.899 Other long term (current) drug therapy; Z90.710 Acquired absence of both cervix and uterus